=== PATIENT | male | born 1970 | race Caucasian/White ===

== ENCOUNTER → 2023-03-23 08:13 | Outpatient (CLI) | payer OTHER, SELFPAY ==
[2023-03-23 18:16] LABS: Basophils # 0.1 K/mm3 (0-0.2); Basophils % 0.7 % (0.1-2.0); Eosinophils # 0.6 K/mm3 (0.0-0.4); Eosinophils % 5.1 % (0.1-12.0); Hematocrit 43.6 % (42.0-52.0); Hemoglobin 14.6 g/dL (14.1-18.0); Lymphocytes # 1.8 K/mm3 (0.7-4.5); Lymphocytes % 16.4 % (10-50); Mean Corpuscular HGB Conc 33.5 g/dL (31.8-35.4); Mean Corpuscular Hemoglobin 29.7 pg (27.0-31.2); Mean Corpuscular Volume 88.7 fl (80-94); Mean Platelet Volume 9.2 fl (7.4-10.4); Monocytes # 0.4 K/mm3 (0.1-1.0); Neutrophils # 8.2 K/mm3 (1.8-7.8); Neutrophils % 73.9 % (37.0-80.0); Platelet Count 306 K/mm3 (142-424); Red Blood Count 4.92 M/mm3 (4.60-6.20); Red Cell Distribution Width 13.5 % (11.5-17.5); White Blood Count 11.2 K/mm3 (4.8-10.8)
[2023-03-23 18:18] LABS: Alanine Aminotransferase 62 U/L (12-78); Albumin Level 3.5 g/dl (3.5-5.0); Albumin/Globulin Ratio 1.1 (1.1-1.8); Alkaline Phosphatase 96 U/L (38-126); Anion Gap 14.3 mEq/L (5-15); Aspartate Amino Transferase 47 U/L (17-59); Bilirubin,Total 0.5 mg/dl (0.2-1.3); Blood Urea Nitrogen 14 mg/dl (9-20); Calcium 8.8 mg/dl (8.4-10.2); Carbon Dioxide 25 mmol/L (22.0-30.0); Chloride 103 mmol/L (98-107); Estimated Glomerular Filt Rate 174 ml/min (>60); GFR (African American) 210 ML/MIN (>60); Globulin 3.2 g/dL (1.3-3.2); Glucose 115 mg/dl (74-100); Potassium 4.3 mmoL/L (3.5-5.1); Sodium 138 mmol/L (136-145); Total Protein,Serum 6.7 g/dl (6.3-8.2); Uric Acid 4.8 mg/dl (3.5-8.5)
[2023-03-23 18:24] LABS: C-Reactive Protein 89.4 mg/L (0-4)
[2023-03-23 18:44] LABS: Erythrocyte Sedimentation Rate 21 mm/hr (0-20)
[2023-03-25 13:44] LABS: Anti-Centromere B Antibodies <0.2 AI (0.0-0.9); Anti-DNA (DS) Ab Qn <1 IU/mL (0-9); Anti-Jo-1 <0.2 AI (0.0-0.9); Anti-Smith Antibody <0.2 AI (0.0-0.9); Antichromatin Antibodies <0.2 AI (0.0-0.9); Antiscleroderma-70 Antibodies <0.2 AI (0.0-0.9); Lyme Ab CIA Negative (Negative); RNP Antibodies 0.2 AI (0.0-0.9); Sjogren's Anti-SS-A <0.2 AI (0.0-0.9); Sjogren's Anti-SS-B <0.2 AI (0.0-0.9)
[2023-03-25 14:34] LABS: RA Latex Turbid. 415.1 IU/mL (<14.0)
[2023-03-26 15:10] LABS: Antinuclear Antibodies, IFA Negative (.)
[2023-03-27 21:09] LABS: Lyme Interpretation Negative
== END ==
PROVIDERS: PCP Nurse Practitioner; Visit Provider Nurse Practitioner
DX: M79.641 Pain in right hand (principal); M79.642 Pain in left hand; M13.80 Other specified arthritis, unspecified site
CPT/HCPCS: 80053; 84550; 85025; 85651; 86038; 86140; 86225; 86235; 86431; 86618

== ENCOUNTER → 2023-04-17 08:53 | Outpatient (CLI) | payer OTHER, SELFPAY ==
[2023-04-17 18:43] LABS: Amphetamine/Metha Screen,Urine Negative ng/ml (<1000)
[2023-04-17 18:44] LABS: Barbiturates Screen,Urine Negative ng/ml (<200)
[2023-04-17 18:46] LABS: Benzodiazepines Screen,Urine Positive ng/ml (<200)
[2023-04-17 18:47] LABS: Cannabinoid Screen,Urine Negative ng/ml (<50); Cocaine Screen,Urine Negative ng/ml (<300)
[2023-04-17 18:48] LABS: Methadone Screen,Urine Negative ng/ml (<300); Opiate Screen,Urine Negative ng/ml (<300)
[2023-04-17 18:49] LABS: Phencyclidine Screen,Urine Negative ng/ml (<25)
== END ==
LOC: LAB.DROPOF 04-18 08:54
PROVIDERS: PCP Family Medicine; Visit Provider Family Medicine
DX: Z79.899 Other long term (current) drug therapy (principal)
CPT/HCPCS: 80305

== ENCOUNTER 2023-06-19 22:01 | Outpatient (CLI) | payer OTHER, SELFPAY ==
[2023-06-21 08:26] LABS: Testosterone,Total 262 ng/dL (264-916)
== END 2023-06-19 23:59 ==
LOC: LAB.DROPOF 22:01
PROVIDERS: PCP Family Medicine; Visit Provider Family Medicine
DX: R68.82 Decreased libido (principal)
CPT/HCPCS: 84403

== ENCOUNTER 2024-07-28 13:43 | Inpatient (IN) | payer OTHER, SELFPAY ==
[2024-07-28] VITALS (11 sets, daily range): BP systolic 113–151; BP diastolic 79–98; PULSE 95–124; RESP 15–20; TEMP 36.7–37.1; O2SAT 90–95; BMI 37.8; BMI 36.6
--- NOTE | 2024-07-28 13:54 | CT_ITS ---
FINAL REPORT TECHNIQUE: IV contrast enhanced exam. Coronal and sagittal images were obtained and reviewed. This study was performed with techniques to keep radiation doses as low as reasonably achievable, (ALARA). Individualized dose reduction techniques using automated exposure control or adjustment of mA and/or kV according to the patient''s size were employed. CLINICAL HISTORY: L perineal swelling fluctuance COMPARISON: None FINDINGS: Abdomen: The lung bases demonstrate mild scarring and atelectasis. There is fatty change of the liver. The remaining solid organs are normal. The gallbladder is negative. No bowel obstruction is present. There is no free air. No fluid collection is seen. There is no adenopathy. Pelvis: The appendix is normal. The urinary bladder and prostate are unremarkable. There are small bilateral inguinal hernias. Fluid collection along the proximal base of the scrotum extending into the perineum is compatible with abscess. No gas is seen within this structure. The fluid collection measures approximately 12 cm in length by 4 cm in depth by 3 cm in width. This does not obviously communicate with the anus. IMPRESSION: Abscess at the base of the scrotum extending into the perineum with measurements as above. No evidence of gas producing infection. No acute intra-abdominal findings. Reviewed, Interpreted and Dictated by Binta Becerra MD Transcribed by Natalia Lakhani Authenticated and [facility]
--- NOTE | 2024-07-28 13:59 | ED_ITS ---
Discharge Plan Disposition Patient Disposition: Admitted Chief Complaint: Skin/Abscess/Foreign Body Prescriptions Prescriptions: No Action albuterol sulfate 90 mcg/actuation HFA aerosol inhaler 2 puff inhalation QID PRN (Reason: shortness of breath or wheezing) Qty: 8.5 12RF Rx Instructions: please provide spacer and instructions alprazolam 2 mg tablet 2 mg PO BID PRN (Reason: anxiety) Qty: 60 5RF albuterol sulfate 90 mcg/actuation HFA aerosol inhaler 2 puff inhalation QID PRN (Reason: shortness of breath or wheezing) Qty: 8.5 12RF Wegovy 0.25 mg/0.5 mL pen injector 0.25 mg SQ WEEKLY Qty: 2 1RF Rx Instructions: administer weeks 1 through 4 of therapy duloxetine [Cymbalta] 60 mg capsule,delayed release(DR/EC) 60 mg PO DAILY Qty: 90 3RF testosterone [AndroGel] 20.25 mg/1.25 gram (1.62 %) gel in metered-dose pump 2 pump topical DAILY Qty: 75 5RF Rx Instructions: apply 1 pump amount over max area of EACH upper arm and shoulder Referrals Follow up/Referrals: Sushil Mobley MD [Primary Care Provider] - See instructions Clinical Impressions Clinical Impression: Abscess of perineum Instructions Patient Instructions: DI for Skin Abscess Print Language Print Language: Urdu Discharge ED Provider: Ton Matias General Adult HPI General Chief complaint: Skin/Abscess/Foreign Body Stated complaint: poss gangrene, sent by dr. Mobley Time Seen by Provider: 07/28/24 13:46 History of Present Illness HPI narrative: Patient is a 53-year-old male who presents emergency department as a transfer patient from clinic for evaluation of suspected Nicki's. Onset was acute, over the last 4 days he has had swelling and pain in his left perineal area. He has had this happen 1 time before and he popped it and it spontaneously resolved. However this time has been worse and more progressive. He presented to PCP today who was concerned for deep space infection promptly referred him here for continued evaluation. No trauma. No other acute complaints at this time. Please note that above description of symptoms, in this electronic medical record under categorization of recalled from ER triage doctor by RN are reflective of an initial nursing assessment, however, is not reflective of my full history and physical exam that was personally taken and clarified. Consequentially, this preceding description of symptoms, which may include the patient's categorized chief complaint in the EMR, do not reflect my personal clinical impression, and the ultimate description of history of present illness and patient stated complaints should be deferred to this section of the note. Unless stated otherwise or congruent with this section of the note, additional signs, symptoms, or incongruence should be interpreted as inaccurate with my clinical impression. Related Data Previous Rx's ?Medication ?Instructions ?Recorded albuterol sulfate 90 mcg/actuation 2 puff inhalation QID PRN 10/28/23 aerosol inhaler shortness of breath or wheezing #8.5 grams albuterol sulfate 90 mcg/actuation 2 puff inhalation QID PRN 05/27/24 aerosol inhaler shortness of breath or wheezing #8.5 grams alprazolam 2 mg tablet 2 mg PO BID PRN anxiety #60 tabs 05/27/24 semaglutide (weight loss) 0.25 0.25 mg (0.5 mL) SQ WEEKLY #2 mL 06/01/24 mg/0.5 mL subcutaneous pen injector (Wegovy) duloxetine 60 mg capsule,delayed 60 mg PO DAILY #90 caps 07/06/24 release (Cymbalta) testosterone (AndroGel) 2 pump topical DAILY #75 grams 07/06/24 Allergies Allergy/AdvReac Type Severity Reaction Status Date / Time No Known Allergies Allergy Verified 07/28/24 14:05 [facility] Disclaimer: The information contained in this section may have been updated after the patient was seen, as this information can be updated by other users. Medical History Elevated rheumatoid factor Migratory polyarthritis Right hand pain Left hand pain Tobacco consumption Lung disease Right shoulder pain Anxiety Surgical History Hx of tonsillectomy Family History Grandfather Cancer Colon Diabetes Mother Cancer Lung Social History Smoking Status: Current every day smoker alcohol intake: never current occupational status: employed Travel in the last 8 weeks: None Have you lived/traveled outside US in past 30 days?: No Contact w/someone who lives/traveled outside US past 30 days?: No Exposure to someone with infectious disease in past 14 days?: No Do you have a fever (greater than 100.4 F or 38 C)?: No Have you tested positive for COVID-19: No Exposed to someone with COVID-19 in past 14 days?: No Do you have a sore throat?: No Do you have a cough?: No Do you have any weakness?: No Do you have any diarrhea?: No Are you experiencing any unusual bleeding?: No Do you have any muscle aches/pain?: No Do you have any abdominal pain?: No Are you experiencing loss of taste or smell?: No ROS Obtained: Yes Systems reviewed as appropriate & no additional complaints except as documented Physical Exam General General appearance: alert and in no apparent distress Head Head exam: atraumatic and normocephalic Eye Eye exam: Present PERRL ENT ENT exam: Present mucous membranes moist Neck Neck exam: Present normal inspection Chest Chest inspection: Present normal inspection and symmetric chest wall rise Respiratory Respiratory exam: Present normal lung sounds bilaterally; Absent respiratory distress Cardiovascular Cardiovascular exam: Present normal rhythm, tachycardia and other (Capillary refill less than 2-second) Abdominal Exam Abdominal exam: Present soft; Absent tenderness exam: Present other ([employer] present, tender fluctuance along the left perineum extending to the base of the scrotum.) Extremities Exam Extremities exam: Present normal inspection Neurological Exam Neurological exam: Present alert Psychiatric Psychiatric exam: Present normal affect Skin Skin exam: Present warm and dry Medical Decision Making Medical Records Screening: Per USPSTF and CDC recommendations, given the prevalence of disease in our region, it is our hospital?s policy to screen for HIV and viral Hepatitis for all patients aged 18 and over and those with ongoing risk factors. Fredo Inquiry Pt receiving controlled substance: No Vital Signs: 07/28/24 13:56 07/28/24 13:58 07/28/24 14:15 Temperature 98.8 F Temperature Source Oral Pulse Rate 121 H 119 H Pulse Rate [Right] 124 H Respiratory Rate 15 Blood Pressure 138/96 H 151/98 H Blood Pressure [Right Arm] 138/96 H Blood Pressure Mean Blood Pressure Mean [Right Arm] 110 Blood Pressure Source [Right Arm] Automatic Cuff Blood Pressure Position [Right Arm] Supine 02 Sat by Pulse Oximetry 93 L 95 94 L Oxygen Delivery Method Room Air Room Air Room Air 07/28/24 14:35 07/28/24 14:45 07/28/24 15:00 Temperature Temperature Source Pulse Rate 122 H 113 H 110 H Pulse Rate [Right] Respiratory Rate Blood Pressure 140/88 127/81 132/80 Blood Pressure [Right Arm] Blood Pressure Mean 89 Blood Pressure Mean [Right Arm] Blood Pressure Source [Right Arm] Blood Pressure Position [Right Arm] 02 Sat by Pulse Oximetry 95 94 L 90 L Oxygen Delivery Method Room Air Room Air Lab Data Lab Results 07/28/24 14:07: WBC 13.7 H, RBC 5.69, Hgb 16.9, Hct 51.7, MCV 90.9, MCH 29.7, MCHC 32.7, RDW 15.4, Plt Count 216, MPV 9.8, Neut % (Auto) 81.5 H, Lymph % (Auto) 5.0 L, [facility] % (Auto) 6.9, Eos % (Auto) 5.2, Baso % (Auto) 0.7, Neut # (Auto) 11.2 H, Lymph # (Auto) 0.7, [facility] # (Auto) 1.0, Eos # (Auto) 0.7 H, Baso # (Auto) 0.1, VBG pH 7.43 H, VBG pCO2 35.8, VBG pO2 178.1 H, VBG HCO3 23.1, VBG Total CO2 24.2, VBG O2 Saturation 99.1 H, VBG Base Excess -1.2, VBG Lactic Acid 2.3 H, Sodium 136, Potassium 3.9, Chloride 104, Carbon Dioxide 26, Anion Gap 9.9, BUN 6 L, Creatinine 0.60 L, Estimated Creat Clear 259, Estimated GFR 140, Est GFR ( Amer) 170, Glucose 132 H, Calcium 8.8, Total Bilirubin 0.6, AST 32, ALT 31, Alkaline Phosphatase 88, C-Reactive Protein 35.7 H, Total Protein 7.2, Albumin 4.0, Globulin 3.2, Albumin/Globulin Ratio 1.3 07/28/24 14:07 07/28/24 14:07 Orders (Tests/Meds): ED MEDICATIONS Generic Name Dose Route Start Last Admin Trade Name Freq PRN Reason Stop Dose Admin Lactated Ringer's 2,470 mls @ 1,235 mls/hr 07/28/24 13:57 07/28/24 14:17 Lactated Ringer's 1000 Ml Bag 30 ml/kg infuse over 2 hr (2470 ml) 07/28/24 15:56 1,235 mls/hr IV Administration .Q2H ONE Vancomycin HCl 2,000 mg/ 250 mls @ 125 mls/hr 07/28/24 14:15 07/28/24 15:09 Sodium Chloride IV 07/28/24 16:14 125 mls/hr ONCE ONE Administration Nicotine 21 mg 07/28/24 15:16 Nicotine 21mg/24hr Patch TD 08/27/24 15:15 DAILYP PRN Nicotine Cravings Discontinued Medications Generic Name Dose Route Start Last Admin Trade Name Freq PRN Reason Stop Dose Admin Acetaminophen 1,000 mg 07/28/24 13:58 07/28/24 14:18 Acetaminophen 1,000mg/100ml Vial IV 07/28/24 13:59 1,000 mg ONCE ONE Administration Piperacillin Sod/Tazobactam 100 mls @ 200 mls/hr 07/28/24 13:56 07/28/24 14:50 Sod 4.5 gm/ Sodium Chloride IV 07/28/24 14:25 Not Given ONCE ONE Clindamycin Phosphate 900 mg in 50 mls @ 100 mls/hr 07/28/24 13:56 07/28/24 14:18 Clindamycin 900mg/50ml D5w Premix IV 07/28/24 14:25 100 mls/hr ONCE ONE Administration Piperacillin Sod/Tazobactam 100 mls @ 200 mls/hr 07/28/24 14:49 07/28/24 14:52 Sod 4.5 gm/ Sodium Chloride IV 07/28/24 15:18 200 mls/hr ONCE ONE Administration Iopamidol 75 ml 07/28/24 14:28 07/28/24 14:29 Iopamidol-370 (76%);100ml Bottle IV 07/28/24 14:29 75 ml ONCE ONE Administration Ketorolac Tromethamine 30 mg 07/28/24 13:58 07/28/24 14:18 Ketorolac 30mg/Ml Vial IV 07/28/24 13:59 30 mg ONCE ONE Administration Miscellaneous 1 each 07/28/24 14:00 07/28/24 14:39 Vancomycin Consult Request NOTAPPLIC 08/27/24 13:59 Not Given [facility] Morphine Sulfate 4 mg 07/28/24 13:58 07/28/24 14:17 Morphine 4mg/Ml Syringe IV 07/28/24 13:59 4 mg ONCE ONE Administration Ondansetron HCl 4 mg 07/28/24 13:58 07/28/24 14:24 Ondansetron 4mg/2ml Vial IV 07/28/24 13:59 4 mg ONCE ONE Administration Sodium Chloride 10 ml 07/28/24 14:28 07/28/24 14:28 Sodium Chloride 0.9% 10ml Syr (Rad Only) IV 07/28/24 14:29 10 ml ONCE ONE Administration ORDERS Category Date Time Status CT abdomen pelvis w con Stat Cat Scan 07/28/24 13:54 Completed CBC w/Auto Diff [Complete Blood Count Auto Diff] Stat Lab 07/28/24 14:07 Completed CMP [Comprehensive Metabolic Panel] Stat Lab 07/28/24 14:07 Completed CRP [C-Reactive Protein] Stat Lab 07/28/24 14:07 Completed HIV Combo Stat Lab 07/28/24 14:07 Received Hepatitis C Ab Qual. W/ RFX Stat Lab 07/28/24 14:07 Received Blood Culture Stat Micro 07/28/24 14:00 Received VBG [Venous Blood Gas] Stat RT 07/28/24 14:07 Completed Medical Decision Narrative: In summary patient is a 53-year-old male past medical history described above who presents emergency department for evaluation of left perineal swelling and tenderness. My concern for deep space infection is high. Differential includes mass, phlegmon, among others. Broad-spectrum antibiotics with bank, Zosyn, double coverage with clindamycin will be administered. Sepsis bolus will be administered. Broad hematologic labs to be obtained. Patient will undergo CT abdomen pelvis IV contrast immediately. Multimodal pain control will be to conducted. Initial workup reviewed by me, leukocytosis 13.4, compensated acid- base status, no hypercarbia. No BRAD or critical electrolyte abnormality, CRP mildly elevated. Tissue reperfusion assessment performed at 3 PM, continue with fluid resuscitation. CT imaging the abdomen pelvis informally visualized by me, there appears to be an abscess in the perineum, no obvious soft tissue gas. Formal read shows abscess at the base of the scrotum extending to the perineum 12 x 4 x 3. Upon repeat evaluation patient was volume responsive, stable blood pressures. Given that he is not developing septic shock I believe he is appropriate for this facility. The case discussed with Dr. Harris who agrees, patient will be continued on antibiotics and admitted to hospital medicine in stable condition pending surgical treatment tomorrow. Critical Care Critical Care Time Critical Care Time: Yes Attestation: On 07/28/24, the high probability of a clinically significant, sudden or life threatening deterioration of the following system(s) required my full and direct attention, intervention and personal management. The time I documented below is in addition to time spent performing reported procedures but includes the following listed in this critical care notation. Total Time Total Critical Care Time: 40
[2024-07-28 14:16] LABS: Basophils # 0.1 K/mm3 (0-0.2); Basophils % 0.7 % (0.1-2.0); Eosinophils # 0.7 K/mm3 (0.0-0.4); Eosinophils % 5.2 % (0.1-12.0); Hematocrit 51.7 % (42.0-52.0); Hemoglobin 16.9 g/dL (14.1-18.0); Lymphocytes # 0.7 K/mm3 (0.7-4.5); Mean Corpuscular HGB Conc 32.7 g/dL (31.8-35.4); Mean Corpuscular Hemoglobin 29.7 pg (27.0-31.2); Mean Corpuscular Volume 90.9 fl (80-94); Mean Platelet Volume 9.8 fl (7.4-10.4); Monocytes % 6.9 % (1.7-9.3); Neutrophils # 11.2 K/mm3 (1.8-7.8); Neutrophils % 81.5 % (37.0-80.0); Platelet Count 216 K/mm3 (142-424); Red Blood Count 5.69 M/mm3 (4.60-6.20); Red Cell Distribution Width 15.4 % (11.5-17.5); White Blood Count 13.7 K/mm3 (4.8-10.8)
[2024-07-28] MEDS: MORPHINE 4MG/ML SYRINGE 4 MG IV (14:17)
[2024-07-28] MEDS: LACTATED RINGERS 1000ML 2,470 ML 1235 ML IV (14:17)
[2024-07-28] MEDS: CLINDAMYCIN PHOSPHATE/D5W 900 MG/50 ML PIGGYBACK 100 MG IV (14:18)
[2024-07-28] MEDS: KETOROLAC 30MG/ML VIAL 30 MG IV (14:18)
[2024-07-28] MEDS: ACETAMINOPHEN 1,000MG/100ML VIAL 1000 MG IV (14:18)
[2024-07-28 14:24] LABS: VBG Base Excess -1.2 mmol/L (-2.4-2.3); VBG HCO3 23.1 mmol/L (23-30); VBG Oxygen Saturation 99.1 % (50-70); VBG PCO2 35.8 mmol/L (35-51); VBG PH 7.43 mmol/L (7.31-7.41); VBG PO2 178.1 mmol/L (28-40); VBG Total CO2 24.2 mmol/L (23-27)
[2024-07-28] MEDS: ONDANSETRON 4MG/2ML VIAL 4 MG IV (14:24)
[2024-07-28 14:25] LABS: Chloride 104 mmol/L (98-107); Potassium 3.9 mmoL/L (3.5-5.1); Sodium 136 mmol/L (136-145)
[2024-07-28 14:28] LABS: Alanine Aminotransferase 31 U/L (12-78); Albumin/Globulin Ratio 1.3 (1.1-1.8); Alkaline Phosphatase 88 U/L (38-126); Anion Gap 9.9 mEq/L (5-15); Aspartate Amino Transferase 32 U/L (17-59); Bilirubin,Total 0.6 mg/dl (0.2-1.3); Blood Urea Nitrogen 6 mg/dl (9-20); Calcium 8.8 mg/dl (8.4-10.2); Carbon Dioxide 26 mmol/L (22.0-30.0); Creatinine Clearance Estimated 259 mL/min (50-200); Estimated Glomerular Filt Rate 140 ml/min (>60); GFR (African American) 170 ML/MIN (>60); Globulin 3.2 g/dL (1.3-3.2); Glucose 132 mg/dl (74-100); Lactate Venous 2.3 mmol/L (0.4-2.0); Total Protein,Serum 7.2 g/dl (6.3-8.2)
[2024-07-28] MEDS: SODIUM CHLORIDE 0.9% 10ML SYR (RAD ONLY) 10 ML IV (14:28)
[2024-07-28] MEDS: IOPAMIDOL-370 (76%);100ML BOTTLE 75 ML IV (14:29)
[2024-07-28 14:40] LABS: C-Reactive Protein 35.7 mg/L (0-4)
[2024-07-28] MEDS: PIPERACILLIN/TAZO 4.5 GM in 0.9 % SODIUM CHLORIDE 100 ML IV ×2 (14:52→21:00)
[2024-07-28] MEDS: VANCOMYCIN HCL 2,000 MG in 0.9 % SODIUM CHLORIDE 250 ML 125 MG IV (15:09)
--- NOTE | 2024-07-28 15:15 | PC.NURSE ---
Dr Matias s/w Dr Harris for general surgery consult.
--- NOTE | 2024-07-28 15:31 | PC.NURSE ---
HS aware of admit
[2024-07-28 15:33] LABS: Hepatitis C Ab Qual. W/ RFX NEGATIVE (Negative)
--- NOTE | 2024-07-28 15:38 | PC.NURSE ---
PT ADMITTED, ROOM 215. ALL STAFF NOTIFIED
[2024-07-28 15:45] LABS: HIV Combo NEGATIVE (Negative)
--- NOTE | 2024-07-28 15:48 | P.HP_ITS ---
History of Present Illness *Admission Date: 07/28/24 *Reason for visit:: Pain in groin *History of present illness: Mr. Vaughan is a 53-year-old male who presented to the ER at the recommendation of his PCP. 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 States he has had a lesion in his groin before that is drained spontaneously. Thought it got better but has come back over the past several days to week. Has been taking daily baths with drainage of dark pus over the past 4 days. Denies fever or systemic symptoms. Has had pain and swelling in his groin. No difficulty urinating. Denies any known trauma. Is on steroids daily for rheumatoid arthritis. No known history of diabetes however. On no SGLT2 medications. On workup in the ER, found to have elevated white count of 13, CT showing large abscess in perineal region. Case discussed with surgery, recommends IV antibiotics and admission for surgical eval in the morning. Medicine consulted for admission. On my evaluation, patient meets criteria for sepsis. Will continue broad- spectrum antibiotics. Patient is alert and oriented, hemodynamically stable. Has received vancomycin, Zosyn, clindamycin in the ED. [facility] Disclaimer: The information contained in this section may have been updated after the patient was seen, as this information can be updated by other users. Medical History Elevated rheumatoid factor Migratory polyarthritis Right hand pain Left hand pain Tobacco consumption Lung disease Right shoulder pain Anxiety Surgical History Hx of tonsillectomy Family History Grandfather Cancer Diabetes Mother Cancer Social History Smoking Status: Current every day smoker alcohol intake: never current occupational status: employed Travel in the last 8 weeks: None Have you lived/traveled outside US in past 30 days?: No Contact w/someone who lives/traveled outside US past 30 days?: No Exposure to someone with infectious disease in past 14 days?: No Do you have a fever (greater than 100.4 F or 38 C)?: No Have you tested positive for COVID-19: No Exposed to someone with COVID-19 in past 14 days?: No Do you have a sore throat?: No Do you have a cough?: No Do you have any weakness?: No Do you have any diarrhea?: No Are you experiencing any unusual bleeding?: No Do you have any muscle aches/pain?: No Do you have any abdominal pain?: No Are you experiencing loss of taste or smell?: No Review of Systems Review of Systems Review of systems (narrative): 14 point review of systems performed, pertinent positives and negatives as per HPI Meds Home Medications and Allergies Home Medications ?Medication ?Instructions ?Recorded ?Confirmed ?Type albuterol sulfate 90 mcg/actuation 2 puff inhalation QID PRN 05/27/24 07/28/24 Rx aerosol inhaler shortness of breath or wheezing #8.5 grams alprazolam 2 mg tablet 2 mg PO BID PRN anxiety #60 tabs 05/27/24 07/28/24 Rx duloxetine 60 mg capsule,delayed 60 mg PO DAILY #90 caps 07/06/24 07/28/24 Rx release (Cymbalta) testosterone (AndroGel) 2 pump topical DAILY #75 grams 07/06/24 07/28/24 Rx leflunomide 20 mg tablet 20 mg PO DAILY 07/28/24 07/28/24 History oxycodone-acetaminophen 10 mg-325 10 - 325 tab PO TID Pain 07/28/24 07/28/24 History mg tablet prednisone 20 mg tablet 20 mg PO DAILY 07/28/24 07/28/24 History New Prescriptions to Start Prescriptions: Allergies Allergy/AdvReac Type Severity Reaction Status Date / Time No Known Allergies Allergy Verified 07/28/24 14:05 Exam Data for Last 24 hours Vital signs and Labs for Last 24 Hours: Temp Pulse Resp BP Pulse Ox O2 Del Method 98.8 F 105 H 15 125/93 H 93 L Room Air 07/28/24 13:58 07/28/24 15:30 07/28/24 13:58 07/28/24 15:30 07/28/24 15:30 07/28/24 15:30 Laboratory Results - last 24 hr 07/28/24 14:07: WBC 13.7 H, RBC 5.69, Hgb 16.9, Hct 51.7, MCV 90.9, MCH 29.7, MCHC 32.7, RDW 15.4, Plt Count 216, MPV 9.8, Neut % (Auto) 81.5 H, Lymph % (Auto) 5.0 L, [place] % (Auto) 6.9, Eos % (Auto) 5.2, Baso % (Auto) 0.7, Neut # (Auto) 11.2 H, Lymph # (Auto) 0.7, [place] # (Auto) 1.0, Eos # (Auto) 0.7 H, Baso # (Auto) 0.1, VBG pH 7.43 H, VBG pCO2 35.8, VBG pO2 178.1 H, VBG HCO3 23.1, VBG Total CO2 24.2, VBG O2 Saturation 99.1 H, VBG Base Excess -1.2, VBG Lactic Acid 2.3 H, Sodium 136, Potassium 3.9, Chloride 104, Carbon Dioxide 26, Anion Gap 9.9, BUN 6 L, Creatinine 0.60 L, Estimated Creat Clear 259, Estimated GFR 140, Est GFR ( Amer) 170, Glucose 132 H, Calcium 8.8, Total Bilirubin 0.6, AST 32, ALT 31, Alkaline Phosphatase 88, C-Reactive Protein 35.7 H, Total Protein 7.2, Albumin 4.0, Globulin 3.2, Albumin/Globulin Ratio 1.3, HCV Ab ROBER w/Rflx PCR Qn Negative, HIV Ag/Ab Combo Qual Negative I & O for Last 24 hours: Intake & Output 07/25/24 07/26/24 07/27/24 07/28/24 23:59 23:59 23:59 23:59 Weight 130.181 kg Constitutional Constitutional: no acute distress, obese, chronically ill appearing and cooperative *Routine HEENT Exam Head: Present normocephalic Eye: Present EOMI and PERRL ENT: Present mucous membranes moist *Routine Neck Exam Neck: Present supple; Absent lymphadenopathy *Routine Respiratory Exam Respiratory: Present CTA bilaterally; Absent rhonchi, wheezes or crackles Comments: Smoker's cough *Routine Cardiovascular Exam Cardiovascular: Present RRR *Routine Abdominal Exam Abdominal: Present soft and normoactive bowel sounds; Absent tenderness *Routine Rectal Exam Rectal:: no hemorrhoids *Routine Genitalia Exam Genitalia:: normal male Comment:: Firm elongated abscess along patient left with perineal fissure. Draining brown purulent material from opening near anus. Tender to palpation. *Routine Extremities Exam Extremities: Present edema (1+ bilateral lower extremities to knees); Absent cyanosis or clubbing *Routine Skin Exam Skin: Present warm; Absent rash *Routine Neurological Exam Neurological: Present alert, oriented X3 and moving all extremities; Absent a ltered mental status Assessment and Plan *Assessment and plan (1) Sepsis: Status: Acute Category: Medical Code(s): A41.9 - Sepsis, unspecified organism (2) Abscess of perineum: Status: Acute Category: Medical Code(s): L02.215 - Cutaneous abscess of perineum (3) TEE (generalized anxiety disorder): Status: Acute Category: Medical Code(s): F41.1 - Generalized anxiety disorder (4) Tobacco use disorder: Status: Acute Category: Medical Code(s): F17.200 - Nicotine dependence, unspecified, uncomplicated (5) Alcohol dependence: Status: Acute Category: Medical Code(s): F10.20 - Alcohol dependence, uncomplicated (6) Rheumatoid arthritis: Status: Acute Category: Medical Code(s): M06.9 - Rheumatoid arthritis, unspecified (7) Chronic steroid use: Status: Acute Category: Medical (8) Obesity (BMI 30-39.9): Status: Acute Category: Medical Code(s): E66.9 - Obesity, unspecified Plan 53-year-old male who presents with increased swelling in his groin and increased pain. Found to be septic on arrival with tachycardia, leukocytosis, source of infection. Imaging showing perineal abscess. Discussed case with ER physician, request admission for IV antibiotics and surgical eval/debridement. I agreed to admit for further management. Discussed case with surgery, will plan for surgery in the morning. Continue broad-spectrum antibiotics. Necessitating inpatient care. Problems addressed as follows: Sepsis Perineal abscess - no tom Nicki's gangrene on exam or imaging. CT per my review shows elongated abscess in perineal region. Does not have gas present. Draining purulent material. Continue broad-spectrum antibiotics with vancomycin IV and Zosyn 4.5 g every 6 hours. -Surgery consulted, appreciate their recommendations. Planning for I&D in the morning -Meeting sepsis criteria with elevated white count of 13, tachycardic above 100, source of infection. Repeat CBC, CMP, magnesium, ESR and CRP ordered for the morning -Oxycodone 10/325 every 6 hours as needed for severe pain -Further narrowing of antibiotics pending cultures Rheumatoid arthritis: On chronic steroids. Continue prednisone 20 mg daily. Increases risk for infection, will complicate healing. High risk for adrenal insufficiency, has been on high-dose steroids for months. Unsafe to stop at this time Anxiety: Continue Cymbalta 60 daily Tobacco use disorder: Smokes 2 packs a day, initiate two 21 mg patches daily; uses inhalers as needed. Continue DuoNebs every 6 hours as needed Alcohol dependence: Drinks up to 12 beers a day. Never had withdrawal symptoms. Continue home Xanax 2 mg twice daily as needed to decrease risk for withdrawal; monitor for increasing CIWA scores Full code N.p.o. at midnight Holding anticoagulation in anticipation of surgery
[2024-07-28] MEDS: NICOTINE 21MG/24HR PATCH 21 MG TD (15:50)
[2024-07-28 18:26] LABS: Reflex Lactic Add Lactic Reflex
[2024-07-28] MEDS: VANCOMYCIN CONSULT REQUEST 1 EACH NOTAPPLIC (18:32)
[2024-07-28] MEDS: OXYCODONE 10MG W/APAP 325MG TABLET 1 EACH PO (18:35)
--- NOTE | 2024-07-28 18:39 | PC.WOUNDNOTE ---
perineal abscess with significant drainage
[2024-07-28 18:58] LABS: Lactic Acid Follow Up (RFLX 1) 0.9 mmol/L (0.7-2.1)
[2024-07-28] MEDS: ALPRAZolam 1MG TABLET 2 MG PO (21:00)
[2024-07-29] VITALS (15 sets, daily range): BP systolic 140–168; BP diastolic 88–100; PULSE 83–110; RESP 16–24; TEMP 36.4–36.8; O2SAT 91–95; BMI 38.0
[2024-07-29] MEDS: VANCOMYCIN/WATER FOR INJ (PEG) 1.75 GM/350 ML PIGGYBACK IV (02:00)
[2024-07-29] MEDS: PIPERACILLIN/TAZO 4.5 GM in 0.9 % SODIUM CHLORIDE 100 ML IV ×4 (03:00→21:12)
[2024-07-29] MEDS: OXYCODONE 10MG W/APAP 325MG TABLET 1 EACH PO ×4 (03:56→18:46)
--- NOTE | 2024-07-29 04:38 | PC.NURSE ---
Pt NPO since midnight for pending procedure. Pt tolerated IV ABX well. V/s, ox4. No acute events to report. Plan of care ongoing.
[2024-07-29 05:28] LABS: Basophils # 0.1 K/mm3 (0-0.2); Hemoglobin 15.5 g/dL (14.1-18.0); Lymphocytes # 1.9 K/mm3 (0.7-4.5); Monocytes # 0.9 K/mm3 (0.1-1.0)
[2024-07-29 05:33] LABS: Basophils % 0.6 % (0.1-2.0); Eosinophils # 0.2 K/mm3 (0.0-0.4); Eosinophils % 2.3 % (0.1-12.0); Hematocrit 47.6 % (42.0-52.0); Lymphocytes % 18.9 % (10-50); Mean Corpuscular HGB Conc 32.6 g/dL (31.8-35.4); Mean Corpuscular Hemoglobin 29.9 pg (27.0-31.2); Mean Corpuscular Volume 91.7 fl (80-94); Monocytes % 8.7 % (1.7-9.3); Neutrophils # 6.9 K/mm3 (1.8-7.8); Neutrophils % 68.8 % (37.0-80.0); Platelet Count 178 K/mm3 (142-424); Red Blood Count 5.19 M/mm3 (4.60-6.20); Red Cell Distribution Width 15.2 % (11.5-17.5)
[2024-07-29 05:38] LABS: Alanine Aminotransferase 26 U/L (12-78); Albumin Level 3.2 g/dl (3.5-5.0); Albumin/Globulin Ratio 1.1 (1.1-1.8); Alkaline Phosphatase 58 U/L (38-126); Anion Gap 3.6 mEq/L (5-15); Aspartate Amino Transferase 24 U/L (17-59); Bilirubin,Total 0.7 mg/dl (0.2-1.3); Blood Urea Nitrogen 6 mg/dl (9-20); Calcium 8.2 mg/dl (8.4-10.2); Carbon Dioxide 29 mmol/L (22.0-30.0); Chloride 106 mmol/L (98-107); Creatinine Clearance Estimated 259 mL/min (50-200); Estimated Glomerular Filt Rate 140 ml/min (>60); GFR (African American) 170 ML/MIN (>60); Globulin 2.8 g/dL (1.3-3.2); Glucose 91 mg/dl (74-100); Magnesium 1.9 mg/dl (1.6-2.3); Potassium 3.6 mmoL/L (3.5-5.1); Sodium 135 mmol/L (136-145)
[2024-07-29 05:55] LABS: Hemoglobin A1C 5.4 % (4.0-6.0)
[2024-07-29 06:09] LABS: Thyroid Stimulating Hormone 1.22 uIU/mL (0.465-4.68)
--- NOTE | 2024-07-29 07:07 | P.CONS_ITS ---
History of Present Illness *Admission Date: 07/28/24 *Reason for visit:: Perineal/scrotal abscess *History of present illness: This is a 53-year-old gentleman who presented to the emergency department with increasing pain in his perineal region. He was diagnosed with perineal/scrotal abscess and the surgical service was consulted. Some spontaneous drainage noted. He currently feels okay . Please see HPI forwarded from admission H&P below. Forwarded from admission H&P: Mr. Vaughan is a 53-year-old male who presented to the ER at the recommendation of his PCP. 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 States he has had a lesion in his groin before that is drained spontaneously. Thought it got better but has come back over the past several days to week. Has been taking daily baths with drainage of dark pus over the past 4 days. Denies fever or systemic symptoms. Has had pain and swelling in his groin. No difficulty urinating. Denies any known trauma. Is on steroids daily for rheumatoid arthritis. No known history of diabetes however. On no SGLT2 medications. On workup in the ER, found to have elevated white count of 13, CT showing large abscess in perineal region. Case discussed with surgery, recommends IV antibiotics and admission for surgical eval in the morning. Medicine consulted for admission. On my evaluation, patient meets criteria for sepsis. Will continue broad- spectrum antibiotics. Patient is alert and oriented, hemodynamically stable. Has received vancomycin, Zosyn, clindamycin in the ED. [facility] Disclaimer: The information contained in this section may have been updated after the patient was seen, as this information can be updated by other users. Medical History Elevated rheumatoid factor Migratory polyarthritis Right hand pain Left hand pain Tobacco consumption Lung disease Right shoulder pain Anxiety Surgical History Hx of tonsillectomy Family History Grandfather Cancer Diabetes Mother Cancer Social History Smoking Status: Current every day smoker alcohol intake: never current occupational status: employed Travel in the last 8 weeks: None Have you lived/traveled outside US in past 30 days?: No Contact w/someone who lives/traveled outside US past 30 days?: No Exposure to someone with infectious disease in past 14 days?: No Do you have a fever (greater than 100.4 F or 38 C)?: No Have you tested positive for COVID-19: No Exposed to someone with COVID-19 in past 14 days?: No Do you have a sore throat?: No Do you have a cough?: No Do you have any weakness?: No Do you have any diarrhea?: No Are you experiencing any unusual bleeding?: No Do you have any muscle aches/pain?: No Do you have any abdominal pain?: No Are you experiencing loss of taste or smell?: No Meds Home Medications and Allergies Home Medications ?Medication ?Instructions ?Recorded ?Confirmed ?Type albuterol sulfate 90 mcg/actuation 2 puff inhalation QID PRN 05/27/24 07/28/24 Rx aerosol inhaler shortness of breath or wheezing #8.5 grams alprazolam 2 mg tablet 2 mg PO BID PRN anxiety #60 tabs 05/27/24 07/28/24 Rx duloxetine 60 mg capsule,delayed 60 mg PO DAILY #90 caps 07/06/24 07/28/24 Rx release (Cymbalta) testosterone (AndroGel) 2 pump topical DAILY #75 grams 07/06/24 07/28/24 Rx leflunomide 20 mg tablet 20 mg PO DAILY 07/28/24 07/28/24 History oxycodone-acetaminophen 10 mg-325 10 - 325 tab PO TID Pain 07/28/24 07/28/24 History mg tablet prednisone 20 mg tablet 20 mg PO DAILY 07/28/24 07/28/24 History New Prescriptions to Start Prescriptions: Allergies Allergy/AdvReac Type Severity Reaction Status Date / Time No Known Allergies Allergy Verified 07/28/24 14:05 Exam (Inpt) Vital signs and Labs for Last 24 Hours: Temp Pulse Resp BP Pulse Ox O2 Del Method 97.8 F 83 16 151/91 H 92 L Room Air 07/29/24 04:00 07/29/24 04:00 07/29/24 04:00 07/29/24 04:00 07/29/24 04:00 07/29/24 06:08 Laboratory Results - last 24 hr 07/28/24 14:07: WBC 13.7 H, RBC 5.69, Hgb 16.9, Hct 51.7, MCV 90.9, MCH 29.7, MCHC 32.7, RDW 15.4, Plt Count 216, MPV 9.8, Neut % (Auto) 81.5 H, Lymph % (Auto) 5.0 L, [place] % (Auto) 6.9, Eos % (Auto) 5.2, Baso % (Auto) 0.7, Neut # (Auto) 11.2 H, Lymph # (Auto) 0.7, [place] # (Auto) 1.0, Eos # (Auto) 0.7 H, Baso # (Auto) 0.1, VBG pH 7.43 H, VBG pCO2 35.8, VBG pO2 178.1 H, VBG HCO3 23.1, VBG Total CO2 24.2, VBG O2 Saturation 99.1 H, VBG Base Excess -1.2, VBG Lactic Acid 2.3 H, Sodium 136, Potassium 3.9, Chloride 104, Carbon Dioxide 26, Anion Gap 9.9, BUN 6 L, Creatinine 0.60 L, Estimated Creat Clear 259, Estimated GFR 140, Est GFR ( Amer) 170, Glucose 132 H, Calcium 8.8, Total Bilirubin 0.6, AST 32, ALT 31, Alkaline Phosphatase 88, C-Reactive Protein 35.7 H, Total Protein 7.2, Albumin 4.0, Globulin 3.2, Albumin/Globulin Ratio 1.3, HCV Ab ROBER w/Rflx PCR Qn Negative, HIV Ag/Ab Combo Qual Negative 07/28/24 18:41: Lactate 0.9 07/29/24 05:15: WBC 10.0 D, RBC 5.19, Hgb 15.5, Hct 47.6, MCV 91.7, MCH 29.9, MCHC 32.6, RDW 15.2, Plt Count 178, MPV 10.0, Neut % (Auto) 68.8, Lymph % (Auto) 18.9, [place] % (Auto) 8.7, Eos % (Auto) 2.3, Baso % (Auto) 0.6, Neut # (Auto) 6.9, Lymph # (Auto) 1.9, [place] # (Auto) 0.9, Eos # (Auto) 0.2, Baso # (Auto) 0.1, S odium 135 L, Potassium 3.6, Chloride 106, Carbon Dioxide 29, Anion Gap 3.6 L, B UN 6 L, Creatinine 0.60 L, Estimated Creat Clear 259, Estimated GFR 140, Est GFR ( Amer) 170, Glucose 91 D, Hemoglobin A1c 5.4, Calcium 8.2 L, Magnesium 1.9, Total Bilirubin 0.7, AST 24, ALT 26, Alkaline Phosphatase 58, Total Protein 6.0 L, Albumin 3.2 L D, Globulin 2.8, Albumin/Globulin Ratio 1.1, TSH 1.22 I & O for Labs for Last 24 Hours: Intake & Output 07/26/24 07/27/24 07/28/24 07/29/24 11:59 11:59 11:59 11:59 Intake Total 180 / 180 Balance 180 / 180 Weight 287 lb Constitutional: no acute distress Respiratory: Absent respiratory distress Cardiac: Absent Tachycardia Comment:: Induration and blush noted along perineal region with projection to the inferior left scrotum. Marginal opening with some drainage noted. Results Labs 07/29/24 05:15 07/29/24 05:15 Labs: Laboratory Results - last 24 hr 07/28/24 14:07: WBC 13.7 H, RBC 5.69, Hgb 16.9, Hct 51.7, MCV 90.9, MCH 29.7, MCHC 32.7, RDW 15.4, Plt Count 216, MPV 9.8, Neut % (Auto) 81.5 H, Lymph % (Auto) 5.0 L, [place] % (Auto) 6.9, Eos % (Auto) 5.2, Baso % (Auto) 0.7, Neut # (Auto) 11.2 H, Lymph # (Auto) 0.7, [place] # (Auto) 1.0, Eos # (Auto) 0.7 H, Baso # (Auto) 0.1, VBG pH 7.43 H, VBG pCO2 35.8, VBG pO2 178.1 H, VBG HCO3 23.1, VBG Total CO2 24.2, VBG O2 Saturation 99.1 H, VBG Base Excess -1.2, VBG Lactic Acid 2.3 H, Sodium 136, Potassium 3.9, Chloride 104, Carbon Dioxide 26, Anion Gap 9.9, BUN 6 L, Creatinine 0.60 L, Estimated Creat Clear 259, Estimated GFR 140, Est GFR ( Amer) 170, Glucose 132 H, Calcium 8.8, Total Bilirubin 0.6, AST 32, ALT 31, Alkaline Phosphatase 88, C-Reactive Protein 35.7 H, Total Protein 7.2, Albumin 4.0, Globulin 3.2, Albumin/Globulin Ratio 1.3, HCV Ab ROBER w/Rflx PCR Qn Negative, HIV Ag/Ab Combo Qual Negative 07/28/24 18:41: Lactate 0.9 07/29/24 05:15: WBC 10.0 D, RBC 5.19, Hgb 15.5, Hct 47.6, MCV 91.7, MCH 29.9, MCHC 32.6, RDW 15.2, Plt Count 178, MPV 10.0, Neut % (Auto) 68.8, Lymph % (Auto) 18.9, [place] % (Auto) 8.7, Eos % (Auto) 2.3, Baso % (Auto) 0.6, Neut # (Auto) 6.9, Lymph # (Auto) 1.9, [place] # (Auto) 0.9, Eos # (Auto) 0.2, Baso # (Auto) 0.1, S odium 135 L, Potassium 3.6, Chloride 106, Carbon Dioxide 29, Anion Gap 3.6 L, B UN 6 L, Creatinine 0.60 L, Estimated Creat Clear 259, Estimated GFR 140, Est GFR ( Amer) 170, Glucose 91 D, Hemoglobin A1c 5.4, Calcium 8.2 L, Magnesium 1.9, Total Bilirubin 0.7, AST 24, ALT 26, Alkaline Phosphatase 58, Total Protein 6.0 L, Albumin 3.2 L D, Globulin 2.8, Albumin/Globulin Ratio 1.1, TSH 1.22 Assessment and Plan *Assessment and plan (1) Abscess of perineum: Status: Acute Category: Medical Code(s): L02.215 - Cutaneous abscess of perineum Plan: Continue overall management as per primary service (IV antibiotics, etc.). Incision and drainage of abscess this morning I have discussed the risks and benefits including, but not limited to: Bleeding Infection Damage to surrounding tissue Inherent risks of sedation The patient agrees to proceed.
--- NOTE | 2024-07-29 07:31 | PC.NURSE ---
pt down for surgery
--- NOTE | 2024-07-29 07:37 | EXP.ACUTE.PN ---
Subjective *Date: 07/29/24 *Time: 20:33 Interval history: Patient seen after surgery today. I&D performed. Feeling somewhat better with the partial relief. Afebrile. No nausea or vomiting. Stable on room air. Medical Exam Vital signs and Labs for Last 24 Hours: Vital Signs Temp Pulse Pulse Resp BP BP Pulse Ox 07/29/24 06:08 07/29/24 04:41 07/29/24 04:00 97.8 F 83 16 151/91 H 92 L 07/29/24 03:00 07/29/24 01:00 07/28/24 22:37 07/28/24 20:48 07/28/24 20:00 07/28/24 20:00 98.1 F 95 H 18 151/92 H 94 L 07/28/24 18:23 07/28/24 17:00 07/28/24 16:11 98.4 F 105 H 15 125/93 H 07/28/24 16:10 98.1 F 109 H 20 146/81 H 93 L 07/28/24 15:41 07/28/24 15:30 105 H 125/93 H 93 L 07/28/24 15:17 111 H 113/79 90 L 07/28/24 15:00 110 H 132/80 90 L 07/28/24 14:45 113 H 127/81 94 L 07/28/24 14:35 122 H 140/88 95 07/28/24 14:15 119 H 151/98 H 94 L 07/28/24 13:58 98.8 F 124 H 15 138/96 H 95 07/28/24 13:56 121 H 138/96 H 93 L O2 Del Method 07/29/24 06:08 Room Air 07/29/24 04:41 Room Air 07/29/24 04:00 Room Air 07/29/24 03:00 Room Air 07/29/24 01:00 Room Air 07/28/24 22:37 Room Air 07/28/24 20:48 Room Air 07/28/24 20:00 Room Air 07/28/24 20:00 Room Air 07/28/24 18:23 Room Air 07/28/24 17:00 Room Air 07/28/24 16:11 Room Air 07/28/24 16:10 Room Air 07/28/24 15:41 Room Air 07/28/24 15:30 Room Air 07/28/24 15:17 Room Air 07/28/24 15:00 07/28/24 14:45 Room Air 07/28/24 14:35 Room Air 07/28/24 14:15 Room Air 07/28/24 13:58 Room Air 07/28/24 13:56 Room Air Intake and Output 07/28/24 07/28/24 07/29/24 15:59 23:59 07:59 Intake Total 180 / 180 0 / 0 Balance 180 / 180 0 / 0 Intake: Intake, Oral Amount 180 / 180 0 / 0 Other: Weight 130.181 kg 125.702 kg 130.181 kg Patient Weight 07/29/24 23:59 Weight 130.181 kg Laboratory Results - last 24 hr 07/28/24 14:07: WBC 13.7 H, RBC 5.69, Hgb 16.9, Hct 51.7, MCV 90.9, MCH 29.7, MCHC 32.7, RDW 15.4, Plt Count 216, MPV 9.8, Neut % (Auto) 81.5 H, Lymph % (Auto) 5.0 L, Nelson % (Auto) 6.9, Eos % (Auto) 5.2, Baso % (Auto) 0.7, Neut # (Auto) 11.2 H, Lymph # (Auto) 0.7, Nelson # (Auto) 1.0, Eos # (Auto) 0.7 H, Baso # (Auto) 0.1, VBG pH 7.43 H, VBG pCO2 35.8, VBG pO2 178.1 H, VBG HCO3 23.1, VBG Total CO2 24.2, VBG O2 Saturation 99.1 H, VBG Base Excess -1.2, VBG Lactic Acid 2.3 H, Sodium 136, Potassium 3.9, Chloride 104, Carbon Dioxide 26, Anion Gap 9.9, BUN 6 L, Creatinine 0.60 L, Estimated Creat Clear 259, Estimated GFR 140, Est GFR ( Amer) 170, Glucose 132 H, Calcium 8.8, Total Bilirubin 0.6, AST 32, ALT 31, Alkaline Phosphatase 88, C-Reactive Protein 35.7 H, Total Protein 7.2, Albumin 4.0, Globulin 3.2, Albumin/Globulin Ratio 1.3, HCV Ab ROBER w/Rflx PCR Qn Negative, HIV Ag/Ab Combo Qual Negative 07/28/24 18:41: Lactate 0.9 07/29/24 05:15: WBC 10.0 D, RBC 5.19, Hgb 15.5, Hct 47.6, MCV 91.7, MCH 29.9, MCHC 32.6, RDW 15.2, Plt Count 178, MPV 10.0, Neut % (Auto) 68.8, Lymph % (Auto) 18.9, Nelson % (Auto) 8.7, Eos % (Auto) 2.3, Baso % (Auto) 0.6, Neut # (Auto) 6.9, Lymph # (Auto) 1.9, Nelson # (Auto) 0.9, Eos # (Auto) 0.2, Baso # (Auto) 0.1, Sodium 135 L, Potassium 3.6, Chloride 106, Carbon Dioxide 29, Anion Gap 3.6 L, BUN 6 L, Creatinine 0.60 L, Estimated Creat Clear 259, Estimated GFR 140, Est GFR ( Amer) 170, Glucose 91 D, Hemoglobin A1c 5.4, Calcium 8.2 L, Magnesium 1.9, Total Bilirubin 0.7, AST 24, ALT 26, Alkaline Phosphatase 58, Total Protein 6.0 L, Albumin 3.2 L D, Globulin 2.8, Albumin/Globulin Ratio 1.1, TSH 1.22 I & O for Labs for Last 24 Hours: Intake & Output 07/26/24 07/27/24 07/28/24 07/29/24 23:59 23:59 23:59 23:59 Intake Total 180 / 180 0 / 0 Balance 180 / 180 0 / 0 Weight 125.702 kg 130.181 kg Constitutional: Present no acute distress, obese, chronically ill appearing and cooperative Head: Present atraumatic and normocephalic Neck: Present normal inspection Respiratory: Present normal respiratory effort; Absent rhonchi, stridor, wheezes or crackles Cardiac: Present Reg Rate and Rhythm GI: Present soft and normal bowel sounds; Absent distention or tenderness Comment:: Normal male genitalia, blood-tinged dressing at site of I&D Extremities: Present normal inspection and full ROM Skin: Present intact; Absent erythema Neuro: Present Grossly Intact, alert, awake, oriented x 3 and moves all extremities Assessment and Plan *Assessment and plan (1) Sepsis: Status: Acute Category: Medical Code(s): A41.9 - Sepsis, unspecified organism (2) Abscess of perineum: Status: Acute Category: Medical Code(s): L02.215 - Cutaneous abscess of perineum (3) TEE (generalized anxiety disorder): Status: Acute Category: Medical Code(s): F41.1 - Generalized anxiety disorder (4) Tobacco use disorder: Status: Acute Category: Medical Code(s): F17.200 - Nicotine dependence, unspecified, uncomplicated (5) Alcohol dependence: Status: Acute Category: Medical Code(s): F10.20 - Alcohol dependence, uncomplicated (6) Rheumatoid arthritis: Status: Acute Category: Medical Code(s): M06.9 - Rheumatoid arthritis, unspecified (7) Chronic steroid use: Status: Acute Category: Medical (8) Obesity (BMI 30-39.9): Status: Acute Category: Medical Code(s): E66.9 - Obesity, unspecified Plan 53-year-old male who presents with increased swelling in his groin and increased pain. Found to be septic on arrival with tachycardia, leukocytosis, source of infection. Imaging showing perineal abscess. Discussed case with ER physician, request admission for IV antibiotics and surgical eval/debridement. I agreed to admit for further management. S/P I&D this morning. Continue broad-spectrum antibiotics. Necessitating inpatient care. Problems addressed as follows: Sepsis Perineal abscess -Status post I&D this morning, discussed case with surgery, daily dry dressing changes and packing. Patient wants to come back as an outpatient for treatment at the hospital. Will have case management assist with scheduling. -Continue broad-spectrum antibiotics with vancomycin IV and Zosyn 4.5 g every 6 hours. -White count improved to 10. Hemoglobin 15. Screening labs with TSH 1.2 and A1c 5.4 today. Kidney function at baseline with BUN 6, creatinine 0.6. -Repeat CBC, CMP, magnesium ordered for the morning -Oxycodone 10/325 every 6 hours as needed for severe pain; will administer Dilaudid 2 mg IV with dressing changes daily. -Further narrowing of antibiotics pending cultures Rheumatoid arthritis: On chronic steroids. Continue prednisone 20 mg daily. Increases risk for infection, will complicate healing. High risk for adrenal insufficiency, has been on high-dose steroids for months. Unsafe to stop at this time Anxiety: Continue Cymbalta 60 daily Tobacco use disorder: Smokes 2 packs a day, initiate two 21 mg patches daily; uses inhalers as needed. Continue DuoNebs every 6 hours as needed Alcohol dependence: Drinks up to 12 beers a day. Never had withdrawal symptoms. Continue home Xanax 2 mg twice daily as needed to decrease risk for withdrawal; monitor for increasing CIWA scores Full code Regular diet Holding anticoagulation in anticipation of surgery
--- NOTE | 2024-07-29 07:43 | P.PNANES_ITS ---
[facility] Disclaimer: The information contained in this section may have been updated after the patient was seen, as this information can be updated by other users. Medical History Elevated rheumatoid factor Migratory polyarthritis Right hand pain Left hand pain Tobacco consumption Lung disease Right shoulder pain Anxiety Surgical History Hx of tonsillectomy Family History Grandfather Cancer Diabetes Mother Cancer Social History Smoking Status: Current every day smoker alcohol intake: never substance use type: denies use current occupational status: employed Travel in the last 8 weeks: None [facility] Anesthesia Checklist Patient Identification Patient Identification: Arm Band Structural Data Admitted From: Inpatient Planned Operative Procedure/s: I&D Perineal Abscess Consent for Planned Operative Procedure(s) Verified: Yes Verified Documents: Surgical Consent and History and Physical NPO Status Verified Time NPO: 00:00 Additional verifications Anesthesia Reactions: No Airway Assessment Mallampati Score:: Class II C-Spine Mobility Assessed: Yes TMJ Mobility Assessed: Yes Dentition: Good Dentition Neurological Assessment Level of Consciousness: Awake, Alert and Appropriate Anesthesia Plan Anesthesia Risk discussed: Yes Anesthesia Plan: Verified ASA Class: III Anesthesia Type: General
--- NOTE | 2024-07-29 07:45 | EXP.PHA.CONS ---
Pharmacy Consult Date: 07/29/24 Time: 07:45 Referring provider: DR NAVA Reason for Consult:: VANCOMYCIN DOSING CONSULT Allergies Allergy/AdvReac Type Severity Reaction Status Date / Time No Known Allergies Allergy Verified 07/28/24 14:05 Home Medications ?Medication ?Instructions ?Recorded ?Confirmed ?Type albuterol sulfate 90 mcg/actuation 2 puff inhalation QID PRN 05/27/24 07/28/24 Rx aerosol inhaler shortness of breath or wheezing #8.5 grams alprazolam 2 mg tablet 2 mg PO BID PRN anxiety #60 tabs 05/27/24 07/28/24 Rx duloxetine 60 mg capsule,delayed 60 mg PO DAILY #90 caps 07/06/24 07/28/24 Rx release (Cymbalta) testosterone (AndroGel) 2 pump topical DAILY #75 grams 07/06/24 07/28/24 Rx leflunomide 20 mg tablet 20 mg PO DAILY 07/28/24 07/28/24 History oxycodone-acetaminophen 10 mg-325 10 - 325 tab PO TID Pain 07/28/24 07/28/24 History mg tablet prednisone 20 mg tablet 20 mg PO DAILY 07/28/24 07/28/24 History New Prescriptions to Start Prescriptions: Height: 1.85 m Weight: 130.181 kg Laboratory Results:: Laboratory Results - last 24 hr 07/28/24 14:07: WBC 13.7 H, RBC 5.69, Hgb 16.9, Hct 51.7, MCV 90.9, MCH 29.7, MCHC 32.7, RDW 15.4, Plt Count 216, MPV 9.8, Neut % (Auto) 81.5 H, Lymph % (Auto) 5.0 L, [place] % (Auto) 6.9, Eos % (Auto) 5.2, Baso % (Auto) 0.7, Neut # (Auto) 11.2 H, Lymph # (Auto) 0.7, [place] # (Auto) 1.0, Eos # (Auto) 0.7 H, Baso # (Auto) 0.1, VBG pH 7.43 H, VBG pCO2 35.8, VBG pO2 178.1 H, VBG HCO3 23.1, VBG Total CO2 24.2, VBG O2 Saturation 99.1 H, VBG Base Excess -1.2, VBG Lactic Acid 2.3 H, Sodium 136, Potassium 3.9, Chloride 104, Carbon Dioxide 26, Anion Gap 9.9, BUN 6 L, Creatinine 0.60 L, Estimated Creat Clear 259, Estimated GFR 140, Est GFR ( Amer) 170, Glucose 132 H, Calcium 8.8, Total Bilirubin 0.6, AST 32, ALT 31, Alkaline Phosphatase 88, C-Reactive Protein 35.7 H, Total Protein 7.2, Albumin 4.0, Globulin 3.2, Albumin/Globulin Ratio 1.3, HCV Ab ROBER w/Rflx PCR Qn Negative, HIV Ag/Ab Combo Qual Negative 07/28/24 18:41: Lactate 0.9 07/29/24 05:15: WBC 10.0 D, RBC 5.19, Hgb 15.5, Hct 47.6, MCV 91.7, MCH 29.9, MCHC 32.6, RDW 15.2, Plt Count 178, MPV 10.0, Neut % (Auto) 68.8, Lymph % (Auto) 18.9, [place] % (Auto) 8.7, Eos % (Auto) 2.3, Baso % (Auto) 0.6, Neut # (Auto) 6.9, Lymph # (Auto) 1.9, [place] # (Auto) 0.9, Eos # (Auto) 0.2, Baso # (Auto) 0.1, Sodium 135 L, Potassium 3.6, Chloride 106, Carbon Dioxide 29, Anion Gap 3.6 L, BUN 6 L, Creatinine 0.60 L, Estimated Creat Clear 259, Estimated GFR 140, Est GFR ( Amer) 170, Glucose 91 D, Hemoglobin A1c 5.4, Calcium 8.2 L, Magnesium 1.9, Total Bilirubin 0.7, AST 24, ALT 26, Alkaline Phosphatase 58, Total Protein 6.0 L, Albumin 3.2 L D, Globulin 2.8, Albumin/Globulin Ratio 1.1, TSH 1.22 Medical History: Medical History (Updated 07/28/24 @ 19:36 by Misha Nava MD) Elevated rheumatoid factor Migratory polyarthritis Right hand pain Left hand pain Tobacco consumption Lung disease Right shoulder pain Anxiety Assessment and Plan Assessment and plan all Dx Assessment and Plan for all problems:: Pharmacokinetic dosing service Objective: Age: 53 yo Serum creatinine: 0.6 mg/dL Height: 72.8 Inches Weight (kg): 130.18 Diagnosis: SEPSIS/ABCESS Assessment: IBW (kg): 79.44 Dosing wt(kg): 130.18 Estimated Creatinine clearance (ml/min): 130 Clearance limited to 130 ml/min to reduce risk of overdosing. CRCL method: Cockcroft and Gault using ibw(default). Drug selected: Vancomycin Vd (liters): 91.1 (factor used: 0.7 L/kg) Robert (hr-1): 0.112 Half life (hrs): 6.19 CLvanco=?? 10.203 L/hr Recommended dose: 2500 mg Interval: 12 hrs Infusion time (hrs): 2.0 Predicted peak (mcg/mL): 33.3 Predicted trough (mcg/mL): 10.87 Total body weight is being used for vancomycin dosing. Recommendations: Give Vancomycin 2500 mg q 12 hrs with an expected Cpeak of 33.3 mcg/ml and an expected Ctrough of 10.87 mcg/ml, PATIENT RECEIVED VANCOMYCIN 2000 MG ONCE 07/28/24 AT 1509 AND VANCOMYCIN 1750 MG ONCE 07/29/24 AT 0200. AUC 0-24 /SEFERINO Data: SEFERINO 0.5 mcg/mL:?? AUC/SEFERINO:? 980.1 SEFERINO 1.0 mcg/mL:?? AUC/SEFERINO:? 490.1 --------- SEFERINO 1.5 mcg/mL:?? AUC/SEFERINO:? 326.7 SEFERINO 2.0 mcg/mL:?? AUC/SEFERINO:? 245.0 Thank you for the consult
[2024-07-29] MEDS: LIDOCAINE 1% 20ML MDV 20 ML (08:25)
--- NOTE | 2024-07-29 08:34 | P.OP_ITS ---
Date of procedure: 07/29/24 Pre-op Diagnosis:: Left perineum/scrotum margin abscess Post-op Diagnosis:: Same Procedure performed:: Incision and drainage of left perineal/scrotal margin abscess Surgeon:: Paco Harris MD AUTOM[employer] MECH[employer]IC ASSISTANT:: Misha Farmer Anesthesia: local and LMA Estimated blood loss (mL): 10 Operative findings:: Complex pocket of purulence with surrounding induration Operative note:: After informed consent was obtained the patient was taken to the operating room and placed in the supine position. General anesthesia with laryngeal mask airway was achieved and he was transferred to a modified lithotomy position. His perineal/scrotal region was prepped and draped in a sterile fashion. A small point of drainage was noted along the perineum close to the anal margin. Fluid was obtained for Gram stain/culture. This opening was enlarged with electrocautery. Additional fluid was obtained for Gram stain/culture as a larger complex pocket of purulence was encountered. The pocket projected along the left scrotal margin. A counterincision in the left scrotum via an ellipse of tissue was made to facilitate packing. The wound was carefully evacuated and then packed with gauze. The surrounding region was infiltrated with 1% lidocaine. Dressings were applied and the patient was transferred to recovery in stable condition after removal of his laryngeal mask airway. Condition: stable Disposition: PACU Specimens:: Fluid for Gram stain/culture Complications:: No immediate
--- NOTE | 2024-07-29 08:48 | P.PNANES_ITS ---
[facility] Anesthesia Record Part I Anesthesia Record I Intake, IV Amount: 800 Hydration: Adequate Estimated blood loss (mL): 0 Urine output (mL): 0 Blood Products used (#): none Blood Pressure: 151/88 SaO2: 92 Pulse Rate: 92 Airway Patency: Patent Respiratory Rate: 24 Temperature: 98.3 F Patient is:: Drowsy and Stable Stable to PACU at:: 08:39
--- NOTE | 2024-07-29 09:16 | SUR.PHASEI ---
910- detailed report called to wiley johnston on [facility] floor. Pt left in [facility] care, VSS, dressings CDI, family at bedside.
[2024-07-29] MEDS: NICOTINE 21MG/24HR PATCH 21 MG TD (09:58)
[2024-07-29] MEDS: DULOXETINE 30MG CAPSULE.DR 60 MG PO (09:59)
--- NOTE | 2024-07-29 10:20 | EXP.ANES.II ---
[facility] Anesthesia Record Part II Anesthesia Record Part II Discharge Time: :09 Destination: Medical Surgical Department PACU nurse assessment reviewed?: Yes Patient Condition:: Good Anesthesia Complications:: None Swallowing reflex intact?: Yes Airway Patency: Patent Cyanosis?: No Blood Pressure: 162/96 SaO2: 94 Respiratory Rate: 16 Pulse Rate: 99 Temperature: 98.3 F Mental Status: Alert & Oriented Pain level:: 0 Nausea and/or vomitting:: None Intake, IV Amount: 0 Hydration: Adequate
--- NOTE | 2024-07-29 10:56 | SW/DCPLANNER ---
Per patient he prefers to return back to [facility] outpatient services for dressing changes. MD is aware of this plan.
--- NOTE | 2024-07-29 12:03 | CARE MANAGER ---
Patient will require wound care at discharge, order sent per Dr. Muñiz request for dry packing of perineal wound daily.
[2024-07-29] MEDS: NICOTINE 21MG/24HR PATCH 42 MG TD (14:16)
[2024-07-29] MEDS: VANCOMYCIN HCL 2,500 MG in 0.9 % SODIUM CHLORIDE 500 ML 250 MG IV (15:35)
[2024-07-29] MEDS: HYDROMORPHONE 2MG/ML SYRINGE 1 MG IV (18:04)
--- NOTE | 2024-07-29 18:54 | PC.NURSE ---
new 20g iv placed in rt upper arm, dc iv in lt fa. dsg change to scrotum. when pt first arrived to floor post op he had a steady amount of drainage from site. drainage is now at a minimal. premedicated before dsg change after the dsg change notified julio due to pt being in pain and no pain meds to give. per julio okay to give prescribed percocet early. pt has had no issues with urinating this shift. no needs at this time.
[2024-07-29] MEDS: SENNOSIDES 8.6MG/DOCUSATE 50MG TABLET 1 TAB PO (21:12)
[2024-07-29] MEDS: ALPRAZolam 1MG TABLET 2 MG PO (21:15)
[2024-07-30 00:58] LABS: Vancomycin,Trough 12.7 ug/mL (5.0-10.0)
[2024-07-30] MEDS: VANCOMYCIN HCL 2,500 MG in 0.9 % SODIUM CHLORIDE 500 ML 250 MG IV ×2 (01:26→14:09)
[2024-07-30] MEDS: OXYCODONE 10MG W/APAP 325MG TABLET 1 EACH PO ×3 (01:28→15:20)
[2024-07-30] MEDS: PIPERACILLIN/TAZO 4.5 GM in 0.9 % SODIUM CHLORIDE 100 ML IV ×2 (03:38→09:02)
[2024-07-30 04:00] VITALS: BP 168/79; PULSE 81; RESP 16; TEMP 36.8; O2SAT 96; BMI 38.0
--- NOTE | 2024-07-30 06:21 | PC.NURSE ---
Alert and oriented. Requested anxiety medication this shift per jul. Pain medication given per jul. Patient ambulated to the restroom throughout the night. Patient uses padding for drainage, serosanguineous noted. Dressing remains in place to jessie area. Patient has rested well tonight. Iv abx per jul. Call light in reach.
--- NOTE | 2024-07-30 07:41 | PC.NURSE ---
Simeon Sanchez will be providing care under this nurse's supervision.
[2024-07-30 07:49] LABS: MANUAL DIFFERENTIAL MANUAL DIFFERENTIAL (MANUAL DIFF)
[2024-07-30 07:53] LABS: Basophils # 0.1 K/mm3 (0-0.2); Basophils % 0.8 % (0.1-2.0); Eosinophils # 0.2 K/mm3 (0.0-0.4); Eosinophils % 2.4 % (0.1-12.0); Hematocrit 51.7 % (42.0-52.0); Hemoglobin 16.5 g/dL (14.1-18.0); Lymphocytes # 1.8 K/mm3 (0.7-4.5); Lymphocytes % 19.8 % (10-50); Mean Corpuscular HGB Conc 31.9 g/dL (31.8-35.4); Mean Corpuscular Hemoglobin 29.9 pg (27.0-31.2); Mean Corpuscular Volume 93.7 fl (80-94); Mean Platelet Volume 10.3 fl (7.4-10.4); Monocytes # 0.9 K/mm3 (0.1-1.0); Monocytes % 9.7 % (1.7-9.3); Neutrophils # 5.9 K/mm3 (1.8-7.8); Neutrophils % 66.4 % (37.0-80.0); Platelet Count 199 K/mm3 (142-424); Red Blood Count 5.52 M/mm3 (4.60-6.20); Red Cell Distribution Width 15.3 % (11.5-17.5); White Blood Count 8.9 K/mm3 (4.8-10.8)
[2024-07-30 08:00] VITALS: BP 142/82; PULSE 85; RESP 18; TEMP 36.7; O2SAT 95
[2024-07-30 08:02] LABS: Anion Gap 8.2 mEq/L (5-15); Blood Urea Nitrogen 6 mg/dl (9-20); Calcium 8.5 mg/dl (8.4-10.2); Carbon Dioxide 23 mmol/L (22.0-30.0); Chloride 111 mmol/L (98-107); Creatinine Clearance Estimated 259 mL/min (50-200); Estimated Glomerular Filt Rate 140 ml/min (>60); GFR (African American) 170 ML/MIN (>60); Glucose 93 mg/dl (74-100); Potassium 4.2 mmoL/L (3.5-5.1); Sodium 138 mmol/L (136-145)
[2024-07-30 08:07] LABS: C-Reactive Protein 17.5 mg/L (0-4)
--- NOTE | 2024-07-30 08:48 | EXP.PHA.CONS ---
Pharmacy Consult Date: 07/30/24 Time: 08:49 Referring provider: DR. NAVA Reason for Consult:: VANCOMYCIN PEAK/TROUGH LEVELS Allergies Allergy/AdvReac Type Severity Reaction Status Date / Time No Known Allergies Allergy Verified 07/28/24 14:05 Home Medications ?Medication ?Instructions ?Recorded ?Confirmed ?Type albuterol sulfate 90 mcg/actuation 2 puff inhalation QID PRN 05/27/24 07/28/24 Rx aerosol inhaler shortness of breath or wheezing #8.5 grams alprazolam 2 mg tablet 2 mg PO BID PRN anxiety #60 tabs 05/27/24 07/28/24 Rx duloxetine 60 mg capsule,delayed 60 mg PO DAILY #90 caps 07/06/24 07/28/24 Rx release (Cymbalta) testosterone (AndroGel) 2 pump topical DAILY #75 grams 07/06/24 07/28/24 Rx leflunomide 20 mg tablet 20 mg PO DAILY 07/28/24 07/28/24 History oxycodone-acetaminophen 10 mg-325 1 tab PO TID Pain 07/28/24 07/29/24 History mg tablet prednisone 20 mg tablet 20 mg PO DAILY 07/28/24 07/28/24 History New Prescriptions to Start Prescriptions: Height: 1.85 m Weight: 130.184 kg Laboratory Results:: Laboratory Results - last 24 hr 07/30/24 00:26: Vancomycin Trough 12.7 H 07/30/24 04:13: Vancomycin Peak 30.0 07/30/24 06:45: WBC 8.9, RBC 5.52, Hgb 16.5, Hct 51.7, MCV 93.7, MCH 29.9, MCHC 31.9, RDW 15.3, Plt Count 199, MPV 10.3, Neut % (Auto) 66.4, Lymph % (Auto) 19.8, [place] % (Auto) 9.7 H, Eos % (Auto) 2.4, Baso % (Auto) 0.8, Neut # (Auto) 5.9, Lymph # (Auto) 1.8, [place] # (Auto) 0.9, Eos # (Auto) 0.2, Baso # (Auto) 0.1, Sodium 138, Potassium 4.2, Chloride 111 H, Carbon Dioxide 23, Anion Gap 8.2, BUN 6 L, Creatinine 0.60 L, Estimated Creat Clear 259, Estimated GFR 140, Est GFR ( Amer) 170, Glucose 93, Calcium 8.5, C-Reactive Protein 17.5 H D Medical History: Medical History (Updated 07/28/24 @ 19:36 by Misha Nava MD) Elevated rheumatoid factor Migratory polyarthritis Right hand pain Left hand pain Tobacco consumption Lung disease Right shoulder pain Anxiety Assessment and Plan Assessment and plan all Dx Assessment and Plan for all problems:: BASED ON PATIENT FACTORS AND VANCOMYCIN TROUGH/PEAK LEVELS OF 12.7/30.0 RESPECTIVELY, RECOMMEND CONTINUING CURRENT VANCOMYCIN DOSE OF 2,500MG IV EVERY 12 HOURS. PHARMACY WILL CONTINUE TO MONITOR AND WILL ADJUST DOSE APPROPRIATE. -YAEL DUTTON, STEPHD
[2024-07-30] MEDS: DULOXETINE 30MG CAPSULE.DR 60 MG PO (09:01)
[2024-07-30 09:13] LABS: Erythrocyte Sedimentation Rate 7 mm/hr (0-20)
[2024-07-30 09:22] LABS: Eosinophils % 2 % (0-3); Lymphocytes % 23 % (10-50); Monocytes % 4 % (2-9); Neutrophils % 71 % (42-76); Platelet Estimate Normal; RBC Morphology Normal; Total Cells Counted 100
[2024-07-30 12:29] VITALS: BP 138/92; PULSE 100; RESP 20; TEMP 36.5; O2SAT 95
[2024-07-30] MEDS: HYDROMORPHONE 2MG/ML SYRINGE 2 MG IV (13:12)
[2024-07-30] MEDS: NICOTINE 21MG/24HR PATCH 42 MG TD (13:15)
--- NOTE | 2024-07-30 13:45 | P.PN_ITS ---
Subjective Narrative: No acute events. He is doing well. Tolerating diet. Minimal pain. He is eager to go home. Exam Data for Last 24 hours Vital signs and Labs for Last 24 Hours: Temp Pulse Resp BP Pulse Ox O2 Del Method 97.7 F 100 H 20 138/92 H 95 Room Air 07/30/24 12:29 07/30/24 12:29 07/30/24 12:29 07/30/24 12:29 07/30/24 12:29 07/30/24 12:29 Laboratory Results - last 24 hr 07/30/24 00:26: Vancomycin Trough 12.7 H 07/30/24 04:13: Vancomycin Peak 30.0 07/30/24 06:45: WBC 8.9, RBC 5.52, Hgb 16.5, Hct 51.7, MCV 93.7, MCH 29.9, MCHC 31.9, RDW 15.3, Plt Count 199, MPV 10.3, Neut % (Auto) 66.4, Lymph % (Auto) 19.8, [place] % (Auto) 9.7 H, Eos % (Auto) 2.4, Baso % (Auto) 0.8, Neut # (Auto) 5.9, Lymph # (Auto) 1.8, [place] # (Auto) 0.9, Eos # (Auto) 0.2, Baso # (Auto) 0.1, Total Counted 100, Neutrophils % (Manual) 71, Lymphocytes % (Manual) 23, Monocytes % (Manual) 4, Eosinophils % (Manual) 2, Platelet Estimate Normal, RBC Morphology Normal, ESR 7, Sodium 138, Potassium 4.2, Chloride 111 H, Carbon Dioxide 23, Anion Gap 8.2, BUN 6 L, Creatinine 0.60 L, Estimated Creat Clear 259, Estimated GFR 140, Est GFR ( Amer) 170, Glucose 93, Calcium 8.5, C- Reactive Protein 17.5 H D I & O for Last 24 hours: Intake & Output 07/27/24 07/28/24 07/29/24 07/30/24 23:59 23:59 23:59 23:59 Intake Total 180 / 180 1919 / 1919 1720 / 1720 Output Total 0 / 0 0 / 0 Balance 180 / 180 1919 1720 / 1720 Weight 277 lb 2 oz 287 lb 287 lb 0.105 oz Microbiology Reports for the Last 24 Hours: Microbiology 07/29/24 Unknown Groin Gram Stain - Final 07/29/24 Unknown Groin Abscess Culture - Preliminary 07/28/24 14:00 Blood Blood Culture - Preliminary NO GROWTH AFTER 24 HOURS 07/28/24 14:07 Blood Blood Culture - Preliminary NO GROWTH AFTER 24 HOURS Constitutional Constitutional: no acute distress *Routine Abdominal Exam Abdominal: Present soft *Routine Rectal Exam Comments: While I was in the room, the nurses were changing his dressing/packing his wounds. There is no erythema or crepitance on the scrotum or perineum. Very minimal tenderness to palpation. No fluctuance. Progress Note: A&P Assessment and plan (1) Sepsis: Status: Acute (2) Abscess of perineum: Problem details: Postoperative day 1 status post drainage of scrotal/perineal abscess. Doing well. Okay for discharge per surgery standpoint. Follow-up in approximately [address] Persaud. Will need daily outpatient packing of wounds. Status: Acute (3) TEE (generalized anxiety disorder): Status: Acute (4) Tobacco use disorder: Status: Acute (5) Alcohol dependence: Status: Acute (6) Rheumatoid arthritis: Status: Acute (7) Chronic steroid use: Status: Acute (8) Obesity (BMI 30-39.9): Status: Acute
--- NOTE | 2024-07-30 14:16 | EXP.DC.SUM ---
General Admission date:: 07/28/24 Discharge date: 07/30/24 HPI HPI HPI: This is a 53-year-old gentleman who presented to the emergency department with increasing pain in his perineal region. He was diagnosed with perineal/scrotal abscess and the surgical service was consulted. Some spontaneous drainage noted. He currently feels okay . Please see HPI forwarded from admission H&P below. Forwarded from admission H&P: Mr. Vaughan is a 53-year-old male who presented to the ER at the recommendation of his PCP. 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 States he has had a lesion in his groin before that is drained spontaneously. Thought it got better but has come back over the past several days to week. Has been taking daily baths with drainage of dark pus over the past 4 days. Denies fever or systemic symptoms. Has had pain and swelling in his groin. No difficulty urinating. Denies any known trauma. Is on steroids daily for rheumatoid arthritis. No known history of diabetes however. On no SGLT2 medications. On workup in the ER, found to have elevated white count of 13, CT showing large abscess in perineal region. Case discussed with surgery, recommends IV antibiotics and admission for surgical eval in the morning. Medicine consulted for admission. On my evaluation, patient meets criteria for sepsis. Will continue broad-spectrum antibiotics. Patient is alert and oriented, hemodynamically stable. Has received vancomycin, Zosyn, clindamycin in the ED. Hospital Course Hospital Course Hospital Course: 53-year-old male who presents with increased swelling in his groin and increased pain. Found to be septic on arrival with tachycardia, leukocytosis, source of infection. Imaging showing perineal abscess. Discussed case with ER physician, request admission for IV antibiotics and surgical eval/debridement. I agreed to admit for further management. Taken for I&D on 07/29. Abscess evacuated. Tolerated procedure well. Treated with broad-spectrum antibiotics. Showing improvement with normalization in white count and improvement in inflammatory markers. Stable to discharge home on oral regimen with daily dressing changes as an outpatient. Problems addressed as follows: Sepsis, resolved Perineal abscess -Presented with pain in groin, found to have perineal abscess. CT showing large 12 x 4 cm abscess just left of raphae and groin. No gas or concern for Nicki's gangrene. Surgery consulted. Taken for debridement on 07/29. Tolerated procedure well. Dressing changed daily with tolerance of pain. Will continue daily outpatient dressing changes at the hospital per patient request. Given his improvement in pain and discomfort and normalization in labs, stable discharge home to continue antibiotics. Will transition to Levaquin to complete 7 days total for gram-negative coverage. Will transition to clindamycin as well for anaerobic and gram-positive coverage. 7 days total of antibiotics. On day of discharge, CRP down to 17.5, ESR normal at 7. White count normal at 9. Tolerating p.o. intake. Having bowel movements. Continued stool softener to decrease risk for constipation and pain with bowel movement given location of incision to anus. Oxycodone 10/325 as needed before dressing changes. Wound culture still pending at discharge. Rheumatoid arthritis: On chronic steroids. Continue prednisone 20 mg daily. Increases risk for infection, will complicate healing. High risk for adrenal insufficiency, has been on high-dose steroids for months. Unsafe to stop at this time Anxiety: Continue Cymbalta 60 daily Tobacco use disorder: Smokes 2 packs a day, treated with 2 nicotine patches daily during admission. Strongly encourage smoking cessation. Alcohol dependence: Drinks up to 12 beers a day. Never had withdrawal symptoms. No withdrawal symptoms during admission. Continue home Xanax 2 mg twice daily as needed for his anxiety. Total time spent on discharge 32 minutes in counseling, documentation, chart review, and direct care with patient. Exam Data for Last 24 hours Vital signs and Labs for Last 24 Hours: Temp Pulse Resp BP Pulse Ox O2 Del Method 97.7 F 100 H 20 138/92 H 95 Room Air 07/30/24 12:29 07/30/24 12:29 07/30/24 12:29 07/30/24 12:29 07/30/24 12:29 07/30/24 12:29 Laboratory Results - last 24 hr 07/30/24 00:26: Vancomycin Trough 12.7 H 07/30/24 04:13: Vancomycin Peak 30.0 07/30/24 06:45: WBC 8.9, RBC 5.52, Hgb 16.5, Hct 51.7, MCV 93.7, MCH 29.9, MCHC 31.9, RDW 15.3, Plt Count 199, MPV 10.3, Neut % (Auto) 66.4, Lymph % (Auto) 19.8, [place] % (Auto) 9.7 H, Eos % (Auto) 2.4, Baso % (Auto) 0.8, Neut # (Auto) 5.9, Lymph # (Auto) 1.8, [place] # (Auto) 0.9, Eos # (Auto) 0.2, Baso # (Auto) 0.1, Total Counted 100, Neutrophils % (Manual) 71, Lymphocytes % (Manual) 23, Monocytes % (Manual) 4, Eosinophils % (Manual) 2, Platelet Estimate Normal, RBC Morphology Normal, ESR 7, Sodium 138, Potassium 4.2, Chloride 111 H, Carbon Dioxide 23, Anion Gap 8.2, BUN 6 L, Creatinine 0.60 L, Estimated Creat Clear 259, Estimated GFR 140, Est GFR ( Amer) 170, Glucose 93, Calcium 8.5, C-Reactive Protein 17.5 H D I & O for Last 24 hours: Intake & Output 07/27/24 07/28/24 07/29/24 07/30/24 23:59 23:59 23:59 23:59 Intake Total 180 / 180 1920 / 1920 1720 / 1720 Output Total 0 / 0 0 / 0 Balance 180 / 180 1920 / 1920 1720 / 1720 Weight 125.702 kg 130.181 kg 130.184 kg Microbiology Reports for the Last 24 Hours: Microbiology 07/28/24 14:07 Blood Blood Culture - Preliminary NO GROWTH AFTER 48 HOURS 07/29/24 Unknown Groin Gram Stain - Final 07/29/24 Unknown Groin Abscess Culture - Preliminary 07/28/24 14:00 Blood Blood Culture - Preliminary NO GROWTH AFTER 24 HOURS Constitutional Constitutional: no acute distress, obese, chronically ill appearing and cooperative *Routine HEENT Exam Head: Present normocephalic Eye: Present EOMI and PERRL ENT: Present mucous membranes moist *Routine Neck Exam Neck: Present supple; Absent lymphadenopathy *Routine Respiratory Exam Respiratory: Present prolonged expiratory phase and rhonchi; Absent wheezes or crackles *Routine Cardiovascular Exam Cardiovascular: Present RRR *Routine Abdominal Exam Abdominal: Present soft and normoactive bowel sounds; Absent tenderness *Routine Rectal Exam Patient deferred: visual exam *Routine Exam Comments: Perineum with packing and wound. Packing bloody. Improved discomfort on palpation *Routine Extremities Exam Extremities: Present edema (1+ bilateral lower extremity); Absent cyanosis or clubbing *Routine Skin Exam Skin: Present intact and warm; Absent rash *Routine Neurological Exam Neurological: Present alert, oriented X3 and moving all extremities; Absent altered mental status Results Data Completed and Pending Labs on day of discharge: Labs from last 24 hours 07/30/24 07/30/24 07/30/24 06:45 04:13 00:26 WBC 8.9 RBC 5.52 Hgb 16.5 Hct 51.7 MCV 93.7 MCH 29.9 MCHC 31.9 RDW 15.3 Plt Count 199 MPV 10.3 Neut % (Auto) 66.4 Lymph % (Auto) 19.8 [place] % (Auto) 9.7 H Eos % (Auto) 2.4 Baso % (Auto) 0.8 Neut # (Auto) 5.9 Lymph # (Auto) 1.8 [place] # (Auto) 0.9 Eos # (Auto) 0.2 Baso # (Auto) 0.1 Total Counted 100 Neutrophils % (Manual) 71 Lymphocytes % (Manual) 23 Monocytes % (Manual) 4 Eosinophils % (Manual) 2 Platelet Estimate Normal RBC Morphology Normal ESR 7 Sodium 138 Potassium 4.2 Chloride 111 H Carbon Dioxide 23 Anion Gap 8.2 BUN 6 L Creatinine 0.60 L Estimated Creat Clear 259 Estimated GFR 140 Est GFR ( Amer) 170 Glucose 93 Calcium 8.5 C-Reactive Protein 17.5 H D Vancomycin Peak 30.0 Vancomycin Trough 12.7 H Preliminary micro results at discharge 07/28/24 14:07 Blood Culture - Preliminary Blood NO GROWTH AFTER 48 HOURS 07/29/24 Unknown Abscess Culture - Preliminary Groin 07/28/24 14:00 Blood Culture - Preliminary Blood NO GROWTH AFTER 24 HOURS DS: Diagnosis Discharge Diagnosis (1) Sepsis: Status: Acute Code(s): A41.9 - Sepsis, unspecified organism (2) Abscess of perineum: Status: Acute Code(s): L02.215 - Cutaneous abscess of perineum Problem details: Postoperative day 1 status post drainage of scrotal/perineal abscess. Doing well. Okay for discharge per surgery standpoint. Follow-up in approximately [address] Persaud. Will need daily outpatient packing of wounds. (3) TEE (generalized anxiety disorder): Status: Acute Code(s): F41.1 - Generalized anxiety disorder (4) Tobacco use disorder: Status: Acute Code(s): F17.200 - Nicotine dependence, unspecified, uncomplicated (5) Alcohol dependence: Status: Acute Code(s): F10.20 - Alcohol dependence, uncomplicated (6) Rheumatoid arthritis: Status: Acute Code(s): M06.9 - Rheumatoid arthritis, unspecified (7) Chronic steroid use: Status: Acute (8) Obesity (BMI 30-39.9): Status: Acute Code(s): E66.9 - Obesity, unspecified Meds Home Medications and Allergies Home Medications ?Medication ?Instructions ?Recorded ?Confirmed ?Type albuterol sulfate 90 mcg/actuation 2 puff inhalation QID PRN 05/27/24 07/28/24 Rx aerosol inhaler shortness of breath or wheezing #8.5 grams alprazolam 2 mg tablet 2 mg PO BID PRN anxiety #60 tabs 05/27/24 07/28/24 Rx duloxetine 60 mg capsule,delayed 60 mg PO DAILY #90 caps 07/06/24 07/28/24 Rx release (Cymbalta) testosterone (AndroGel) 2 pump topical DAILY #75 grams 07/06/24 07/28/24 Rx leflunomide 20 mg tablet 20 mg PO DAILY 07/28/24 07/28/24 History oxycodone-acetaminophen 10 mg-325 1 tab PO TID Pain 07/28/24 07/29/24 History mg tablet prednisone 20 mg tablet 20 mg PO DAILY 07/28/24 07/28/24 History clindamycin HCl 150 mg capsule 450 mg (3 x 150 mg) PO TID 5 days 07/30/24 Rx #45 caps levofloxacin 750 mg tablet 750 mg PO DAILY 5 days #5 tabs 07/30/24 Rx oxycodone-acetaminophen 10 mg-325 1 tab PO Q6HP PRN Moderate To 07/30/24 Rx mg tablet Severe Pain (4-10) 3 days #11 tabs sennosides 8.6 mg-docusate sodium 1 tab PO HS 30 days #30 tabs 07/30/24 Rx 50 mg tablet (Stimulant Laxative Plus) New Prescriptions to Start Prescriptions: clindamycin HCl Mary Kay,Misha levofloxacin Mary Kay,Misha oxycodone-acetaminophen Mary KayMisha sennosides-docusate sodium [Stimulant Laxative Plus] Misha Muñiz Allergies Allergy/AdvReac Type Severity Reaction Status Date / Time No Known Allergies Allergy Verified 07/28/24 14:05 Discharge Plan Disposition Patient Disposition: Home, Self-Care Condition: Fair Discharge Order Discharge Orders: Discharge Order (Routine); Ordered 07/30/24 Ordered By: Misha Muñiz Follow up Plan Follow up with: Sushil Mobley MD [Primary Care Provider] - 08/05/24 8:40 am Paco Harris MD [Staff Physician] - 08/03/24 10:30 am Prescriptions/Medication Reconciliation: New sennosides-docusate sodium [Stimulant Laxative Plus] 8.6-50 mg Tablet 1 tab PO HS 30 Days Qty: 30 0RF oxycodone-acetaminophen 10-325 mg Tablet 1 tab PO Q6HP PRN (Reason: Moderate To Severe Pain (4-10)) 3 Days Qty: 11 0RF clindamycin HCl 150 mg capsule 450 mg PO TID 5 Days Qty: 45 0RF levofloxacin 750 mg tablet 750 mg PO DAILY 5 Days Qty: 5 0RF Continued alprazolam 2 mg tablet 2 mg PO BID PRN (Reason: anxiety) Qty: 60 5RF albuterol sulfate 90 mcg/actuation HFA aerosol inhaler 2 puff inhalation QID PRN (Reason: shortness of breath or wheezing) Qty: 8.5 12RF duloxetine [Cymbalta] 60 mg capsule,delayed release(DR/EC) 60 mg PO DAILY Qty: 90 3RF testosterone [AndroGel] 20.25 mg/1.25 gram (1.62 %) gel in metered-dose pump 2 pump topical DAILY Qty: 75 5RF Rx Instructions: apply 1 pump amount over max area of EACH upper arm and shoulder prednisone 20 mg tablet 20 mg PO DAILY leflunomide 20 mg tablet 20 mg PO DAILY oxycodone-acetaminophen 10-325 mg tablet 1 tab PO TID Rx Instructions: 10/325MG Problem Reconciliation Problems Reviewed?: Yes Patient Discharge Instructions ACTIVITY: Continue current activity DIET: continue same diet Patient Instructions: DI for Incision and Drainage of a Skin Abscess, DI for Surgical Site Infection Print Language: Maltese Providers Primary Care Provider: Sushil Mobley Admit Provider: Misha Muñiz Attending Provider: Misha Muñiz
--- NOTE | 2024-08-01 11:42 | SW/DCPLANNER ---
Spoke with patient on the phone. Patient stated that he is doing well. Patient asked about who to call and get more pain meds and i told him he needs to get ahold of Dr. Harris. Patient stated that he was able to get his new medicine picked up from [facility]. Patient stated that he is aware of his upcoming appointments. Patient stated that he has no other questions or concerns. Cassandra Clements
== END 2024-07-30 16:27 | disposition home or self-care (01) | DRG 579 ==
LOC: ER 15:30 → 2ND 07-29 05:25
PROVIDERS: Surgery; Admitting Provider Internal Medicine Adolescent Medicine; Emergency Provider Emergency Medicine; PCP Family Medicine; Visit Provider Internal Medicine Adolescent Medicine
PROC: 0H99XZZ Drainage of Perineum Skin, External Approach (ICD-10-PCS; CPT 56405; principal; 2024-07-29 08:00)
DX: L02.215 Cutaneous abscess of perineum (principal); A41.9 Sepsis, unspecified organism; E66.9 Obesity, unspecified; F17.210 Nicotine dependence, cigarettes, uncomplicated; M06.9 Rheumatoid arthritis, unspecified; F41.9 Anxiety disorder, unspecified; F10.20 Alcohol dependence, uncomplicated; R00.0 Tachycardia, unspecified; D72.829 Elevated white blood cell count, unspecified; Z80.9 Family history of malignant neoplasm, unspecified; Z83.3 Family history of diabetes mellitus; Z68.36 Body mass index [BMI] 36.0-36.9, adult; Z79.52 Long term (current) use of systemic steroids; Z71.6 Tobacco abuse counseling; Z79.899 Other long term (current) drug therapy
CPT/HCPCS: 36415; 74177; 80048; 80053; 80202; 82803; 83036; 83605; 83735; 84443; 85007; 85014; 85018; 85025; 85048; 85049; 85651; 86140; 86803; 87040; 87070; 87075; 87077; 87205; 87389; 99291; J0131; J0736; J1100; J1171; J1885; J2250; J2270; J2405; J2543; J3010; J3370; J3372; J7120; Q9967

== ENCOUNTER 2024-07-31 11:23 | Outpatient (CLI) | payer OTHER, SELFPAY ==
[2024-07-31 11:57] VITALS: BMI 38.0
== END 2024-07-31 23:59 | disposition home or self-care (01) ==
LOC: INF 11:25
PROVIDERS: PCP Family Medicine; Visit Provider Internal Medicine Adolescent Medicine
DX: L02.91 Cutaneous abscess, unspecified (principal)
CPT/HCPCS: G0463

== ENCOUNTER 2024-08-01 11:02 | Outpatient (CLI) | payer OTHER, SELFPAY | END 2024-08-01 11:35 | disposition home or self-care (01) | LOC: INF 11:03 | PROVIDERS: PCP Family Medicine; Visit Provider Internal Medicine Adolescent Medicine | DX: L02.215 Cutaneous abscess of perineum (principal) | CPT/HCPCS: G0463 ==

== ENCOUNTER 2024-08-02 10:24 | Outpatient (CLI) | payer OTHER, SELFPAY ==
[2024-08-02] MEDS: KETOROLAC 30MG/ML VIAL 30 MG (10:45)
--- NOTE | 2024-08-02 11:24 | PC.NURSE ---
1045- 15mg toradol given IM in right glute by Demarco, nurse [employer] dining car steward/stewardess. bandaid appied. pt tolerated well and verbalized improvement in pain from 9 to 3 on numeric pain scale after 10 mins. MISAEL Horowitz notified and will call in PO toradol for pt.
== END 2024-08-02 11:19 | disposition home or self-care (01) ==
LOC: INF 10:25
PROVIDERS: PCP Family Medicine; Visit Provider Internal Medicine Adolescent Medicine
DX: S36.60XA Unspecified injury of rectum, initial encounter (principal)
CPT/HCPCS: 96372; G0463; J1885

== ENCOUNTER 2024-08-04 10:56 | Outpatient (CLI) | payer OTHER, SELFPAY | END 2024-08-04 11:33 | disposition home or self-care (01) | LOC: INF 10:56 | PROVIDERS: PCP Family Medicine; Visit Provider Internal Medicine Adolescent Medicine | DX: N49.2 Inflammatory disorders of scrotum (principal) | CPT/HCPCS: G0463 ==

== ENCOUNTER 2024-08-06 10:15 | Outpatient (CLI) | payer OTHER, SELFPAY | END 2024-08-06 10:43 | disposition home or self-care (01) | LOC: INF 10:16 | PROVIDERS: PCP Family Medicine; Visit Provider Internal Medicine Adolescent Medicine | DX: Z48.817 Encounter for surgical aftercare following surgery on the skin and subcutaneous tissue (principal) | CPT/HCPCS: G0463 ==

== ENCOUNTER 2024-08-07 09:43 | Outpatient (CLI) | payer OTHER, SELFPAY | END 2024-08-07 09:45 | disposition home or self-care (01) | LOC: INF 09:44 | PROVIDERS: PCP Family Medicine; Visit Provider Internal Medicine Adolescent Medicine | DX: Z48.817 Encounter for surgical aftercare following surgery on the skin and subcutaneous tissue (principal) | CPT/HCPCS: G0463 ==

== ENCOUNTER 2024-08-08 10:26 | Outpatient (CLI) | payer OTHER, SELFPAY | END 2024-08-08 10:55 | disposition home or self-care (01) | LOC: INF 10:26 | PROVIDERS: PCP Family Medicine; Visit Provider Internal Medicine Adolescent Medicine | DX: N49.2 Inflammatory disorders of scrotum (principal) | CPT/HCPCS: G0463 ==

== ENCOUNTER 2024-08-09 09:51 | Outpatient (CLI) | payer OTHER, SELFPAY | END 2024-08-09 10:15 | disposition home or self-care (01) | LOC: INF 09:52 | PROVIDERS: PCP Family Medicine; Visit Provider Internal Medicine Adolescent Medicine | DX: Z09 Encounter for follow-up examination after completed treatment for conditions other than malignant neoplasm (principal) ==

== ENCOUNTER 2024-08-10 09:35 | Outpatient (CLI) | payer OTHER, SELFPAY | END 2024-08-10 10:00 | disposition home or self-care (01) | LOC: INF 09:36 | PROVIDERS: PCP Family Medicine; Visit Provider Internal Medicine Adolescent Medicine | DX: Z09 Encounter for follow-up examination after completed treatment for conditions other than malignant neoplasm (principal) | CPT/HCPCS: G0463 ==

== ENCOUNTER 2024-08-11 10:06 | Outpatient (CLI) | payer OTHER, SELFPAY | END 2024-08-11 10:20 | disposition home or self-care (01) | LOC: INF 10:06 | PROVIDERS: PCP Family Medicine; Visit Provider Internal Medicine Adolescent Medicine | DX: Z09 Encounter for follow-up examination after completed treatment for conditions other than malignant neoplasm (principal) | CPT/HCPCS: G0463 ==

== ENCOUNTER 2024-08-12 10:13 | Outpatient (CLI) | payer OTHER, SELFPAY | END 2024-08-12 10:59 | disposition home or self-care (01) | LOC: INF 10:14 | PROVIDERS: PCP Family Medicine; Visit Provider Internal Medicine Adolescent Medicine | DX: Z09 Encounter for follow-up examination after completed treatment for conditions other than malignant neoplasm (principal) | CPT/HCPCS: G0463 ==

== ENCOUNTER 2024-08-13 10:08 | Outpatient (CLI) | payer OTHER, SELFPAY | END 2024-08-13 23:59 | disposition home or self-care (01) | LOC: INF 10:08 | PROVIDERS: PCP Family Medicine; Visit Provider Internal Medicine Adolescent Medicine | DX: Z09 Encounter for follow-up examination after completed treatment for conditions other than malignant neoplasm (principal) | CPT/HCPCS: G0463 ==

== ENCOUNTER 2024-08-14 10:16 | Outpatient (CLI) | payer OTHER, SELFPAY | END 2024-08-14 10:40 | disposition home or self-care (01) | LOC: INF 10:17 | PROVIDERS: PCP Family Medicine; Visit Provider Internal Medicine Adolescent Medicine | DX: Z09 Encounter for follow-up examination after completed treatment for conditions other than malignant neoplasm (principal) | CPT/HCPCS: G0463 ==

== ENCOUNTER 2024-08-15 09:47 | Outpatient (CLI) | payer OTHER, SELFPAY | END 2024-08-15 09:55 | disposition home or self-care (01) | LOC: INF 09:47 | PROVIDERS: PCP Family Medicine; Visit Provider Internal Medicine Adolescent Medicine | DX: Z09 Encounter for follow-up examination after completed treatment for conditions other than malignant neoplasm (principal) | CPT/HCPCS: G0463 ==

== ENCOUNTER 2024-08-16 11:09 | Outpatient (CLI) | payer OTHER, SELFPAY | END 2024-08-16 11:30 | disposition home or self-care (01) | LOC: INF 11:09 | PROVIDERS: PCP Family Medicine; Visit Provider Internal Medicine Adolescent Medicine | DX: Z09 Encounter for follow-up examination after completed treatment for conditions other than malignant neoplasm (principal) | CPT/HCPCS: G0463 ==

== ENCOUNTER 2024-08-18 09:39 | Outpatient (CLI) | payer OTHER, SELFPAY | END 2024-08-18 09:58 | disposition home or self-care (01) | LOC: INF 09:39 | PROVIDERS: PCP Family Medicine; Visit Provider Internal Medicine Adolescent Medicine | DX: L02.215 Cutaneous abscess of perineum (principal) | CPT/HCPCS: G0463 ==

== ENCOUNTER 2024-08-19 11:08 | Outpatient (CLI) | payer OTHER, SELFPAY | END 2024-08-19 11:28 | disposition home or self-care (01) | LOC: INF 11:09 | PROVIDERS: PCP Family Medicine; Visit Provider Internal Medicine Adolescent Medicine | DX: N49.2 Inflammatory disorders of scrotum (principal) | CPT/HCPCS: G0463 ==

== ENCOUNTER 2024-08-20 11:26 | Outpatient (CLI) | payer OTHER, SELFPAY | END 2024-08-20 11:58 | disposition home or self-care (01) | LOC: INF 11:27 | PROVIDERS: PCP Family Medicine; Visit Provider Internal Medicine Adolescent Medicine | DX: L02.215 Cutaneous abscess of perineum (principal) | CPT/HCPCS: G0463 ==

== ENCOUNTER 2024-08-21 09:51 | Outpatient (CLI) | payer OTHER, SELFPAY | END 2024-08-21 23:59 | disposition home or self-care (01) | LOC: INF 09:52 | PROVIDERS: PCP Family Medicine; Visit Provider Internal Medicine Adolescent Medicine | DX: L02.215 Cutaneous abscess of perineum (principal) ==

== ENCOUNTER → 2024-08-22 10:45 | Outpatient (CLI) | payer OTHER, SELFPAY | END | disposition home or self-care (01) | LOC: INF 10:46 | PROVIDERS: PCP Family Medicine; Visit Provider Internal Medicine Adolescent Medicine | DX: L02.215 Cutaneous abscess of perineum (principal) | CPT/HCPCS: G0463 ==

== ENCOUNTER 2024-08-23 09:58 | Outpatient (CLI) | payer OTHER, SELFPAY | END 2024-08-23 10:20 | disposition home or self-care (01) | LOC: INF 09:58 | PROVIDERS: PCP Family Medicine; Visit Provider Surgery | DX: L02.215 Cutaneous abscess of perineum (principal) | CPT/HCPCS: G0463 ==

== ENCOUNTER 2024-08-24 10:31 | Outpatient (CLI) | payer OTHER, SELFPAY | END 2024-08-24 10:40 | disposition home or self-care (01) | LOC: INF 10:32 | PROVIDERS: PCP Family Medicine; Visit Provider Internal Medicine Adolescent Medicine | DX: L02.215 Cutaneous abscess of perineum (principal) | CPT/HCPCS: G0463 ==

== ENCOUNTER 2024-08-25 09:43 | Outpatient (CLI) | payer OTHER, SELFPAY | END 2024-08-25 10:00 | disposition home or self-care (01) | LOC: INF 09:44 | PROVIDERS: PCP Family Medicine; Visit Provider Internal Medicine Adolescent Medicine | DX: L02.215 Cutaneous abscess of perineum (principal) | CPT/HCPCS: G0463 ==

== ENCOUNTER 2024-08-26 08:58 | Outpatient (CLI) | payer OTHER, SELFPAY | END 2024-08-26 09:18 | disposition home or self-care (01) | LOC: INF 08:58 | PROVIDERS: PCP Family Medicine; Visit Provider Internal Medicine Adolescent Medicine | DX: L02.215 Cutaneous abscess of perineum (principal) | CPT/HCPCS: G0463 ==

== ENCOUNTER 2024-08-27 09:50 | Outpatient (CLI) | payer OTHER, SELFPAY | END 2024-08-27 23:59 | disposition home or self-care (01) | LOC: INF 09:51 | PROVIDERS: PCP Family Medicine; Visit Provider Internal Medicine Adolescent Medicine | DX: L02.215 Cutaneous abscess of perineum (principal) | CPT/HCPCS: G0463 ==

== ENCOUNTER 2024-08-28 10:28 | Outpatient (CLI) | payer OTHER, SELFPAY | END 2024-08-28 23:59 | disposition home or self-care (01) | LOC: INF 10:29 | PROVIDERS: PCP Family Medicine; Visit Provider Internal Medicine Adolescent Medicine | DX: L02.215 Cutaneous abscess of perineum (principal) | CPT/HCPCS: G0463 ==

== ENCOUNTER 2024-08-29 10:45 | Outpatient (CLI) | payer OTHER, SELFPAY | END 2024-08-29 10:59 | disposition home or self-care (01) | LOC: INF 10:46 | PROVIDERS: PCP Family Medicine; Visit Provider Internal Medicine Adolescent Medicine | DX: L02.215 Cutaneous abscess of perineum (principal) | CPT/HCPCS: G0463 ==

== ENCOUNTER 2024-08-30 11:36 | Outpatient (CLI) | payer OTHER, SELFPAY | END 2024-08-30 12:00 | disposition home or self-care (01) | LOC: INF 11:37 | PROVIDERS: PCP Family Medicine; Visit Provider Internal Medicine Adolescent Medicine | DX: L02.215 Cutaneous abscess of perineum (principal) | CPT/HCPCS: G0463 ==

== ENCOUNTER 2024-08-31 10:32 | Outpatient (CLI) | payer OTHER, SELFPAY | END 2024-08-31 10:51 | disposition home or self-care (01) | LOC: INF 10:33 | PROVIDERS: PCP Family Medicine; Visit Provider Internal Medicine Adolescent Medicine | DX: L02.215 Cutaneous abscess of perineum (principal) | CPT/HCPCS: G0463 ==

== ENCOUNTER 2024-09-01 10:34 | Outpatient (CLI) | payer OTHER, SELFPAY | END 2024-09-01 11:00 | disposition home or self-care (01) | LOC: INF 10:34 | PROVIDERS: PCP Family Medicine; Visit Provider Internal Medicine Adolescent Medicine | DX: L02.215 Cutaneous abscess of perineum (principal) | CPT/HCPCS: G0463 ==

== ENCOUNTER 2024-09-02 10:10 | Outpatient (CLI) | payer OTHER, SELFPAY | END 2024-09-02 10:15 | disposition home or self-care (01) | LOC: INF 10:11 | PROVIDERS: PCP Family Medicine; Visit Provider Internal Medicine Adolescent Medicine | DX: L02.215 Cutaneous abscess of perineum (principal) | CPT/HCPCS: G0463 ==

== ENCOUNTER 2024-09-03 10:38 | Outpatient (CLI) | payer OTHER, SELFPAY | END 2024-09-03 11:00 | disposition home or self-care (01) | LOC: INF 10:38 | PROVIDERS: PCP Family Medicine; Visit Provider Internal Medicine Adolescent Medicine | DX: L02.215 Cutaneous abscess of perineum (principal) | CPT/HCPCS: G0463 ==

== ENCOUNTER 2024-09-05 11:02 | Outpatient (CLI) | payer OTHER, SELFPAY | END 2024-09-05 11:10 | disposition home or self-care (01) | LOC: INF 11:04 | PROVIDERS: PCP Family Medicine; Visit Provider Internal Medicine Adolescent Medicine | DX: L02.215 Cutaneous abscess of perineum (principal) | CPT/HCPCS: G0463 ==

== ENCOUNTER 2024-09-06 13:17 | Outpatient (RCR) | payer OTHER, SELFPAY | END 2024-09-06 13:30 | LOC: INF 13:17 | PROVIDERS: PCP Family Medicine; Visit Provider Internal Medicine Adolescent Medicine | DX: L02.215 Cutaneous abscess of perineum (principal) | CPT/HCPCS: G0463 ==

== ENCOUNTER 2024-09-07 11:50 | Outpatient (CLI) | payer OTHER, SELFPAY | END 2024-09-07 12:05 | disposition home or self-care (01) | LOC: INF 11:51 | PROVIDERS: PCP Family Medicine; Visit Provider Internal Medicine Adolescent Medicine | DX: L02.215 Cutaneous abscess of perineum (principal) | CPT/HCPCS: G0463 ==

== ENCOUNTER 2025-02-03 11:54 | Outpatient (CLI) | payer OTHER, SELFPAY ==
--- OUTSIDE RECORDS SUMMARY | 2024-12-19 09:30 | XMS_ITS | Encounter Summary ---
Author Organization [facility] Address [address] [id number] Care Team Providers Care Wire Puller Name Role Phone Sushil Mobley MD Primary Care Provider [phone] Reason for Referral * Consultation (Routine) - Authorized Specialty Diagnoses / Procedures Referred By Sammy doshi Referred To Contact Physical Therapy Diagnoses Chronic pain of both ankles Marco Lugo APRN [address] [address] Phone: tel: fax: Referral ID Status Reason Start Date Expiration Date Visits Requested Visits Authorized [id number] Authorized Consult and Treat 12/19/2024 06/20/2026 1 1 * Imaging (Routine) - Closed Specialty Diagnoses / Procedures Referred By Sammy doshi Referred To Contact Cardiology Diagnoses Ankle swelling, unspecified laterality Procedures Echo, Adult Transthoracic Complete Marco Lugo APRN [address] [address] Phone: tel: fax: Referral ID Status Reason Start Date Expiration Date V isits Requested Visits Authorized [id number] Closed Perform Procedure 12/19/2024 06/20/2026 1 1 Reason for Visit * Reason Comments Consult Rheumatoid arthritis with rheumatoid factor, unspecified * Consultation (Routine) - Closed Specialty Diagnoses / Procedures Referred By Contac t Referred To Contact Rheumatology Diagnoses Rheumatoid arthritis with rheumatoid factor, unspecified ([facility]) Jason Barnett MD [address] [place] [address] Phone: tel: fax: [facility] Medicine Specialties [address] [place] [address] Phone: tel: fax: Referral ID Status Reason Start Date Expiration Date V isits Requested Visits Authorized [id number] Closed Specialty Services Required 12/06/2024 06/07/2026 1 1 Encounter Details Date Type Department Care Team (Late st Contact Info) Description 12/19/2024 9:30 AM EDT Consult [facility] Medicine Specialties [address] [place] [address] Marco Lugo, KIRK [address] [place] [address] Chronic pain of both ankles (Primary Dx); Seropositive rheumatoid arthritis of multiple sites (CMS/HCC); Ankle swelling, unspecified laterality; Other fatigue; ETOH abuse; Shortness of breath; Long-term use of hydroxychloroquine; Tobacco abuse Social History Tobacco Use Types Packs/Day Years Used Date Smoking Tobacco: Every Day Cigarettes 2 41.7 Started: 1983 Passive Smoke Exposure: Current Smokeless Tobacco: Never Tobacco Cessation:Ready to Q uit: Not Asked; Counseling Given: Not Answered Alcohol Use Standard Drinks/Week Comments Yes 40 (1 standard drink = 0.6 oz pu re alcohol) PHQ-2 Answer Date Recorded Patient Health Questionnaire-2 Score 0 12/19/2024 AUDIT-C Answer Date Recorded Q1: How often do you have a drink containing alcohol? 4 or more times a week 12/19/2024 Q2: How many drinks containi ng alcohol do you have on a typical day when you are drinking? 10 or more Q3: How often do you have si x or more drinks on one occasion? Daily or almost daily 12/19/2024 Sex and Gender Information Value Date Recorded Sex Assigned at Not on file Legal Sex Male 8:09 AM EDT Gender Identity Not on file Sexual Orientation Not on file documented as of this encounter Last Filed Vital Signs Vital Sign Reading Time Taken Comments Blood Pressure 162/93 12/19/2024 10:38 AM EDT Pulse 109 12/19/2024 9:36 AM EDT Temperature 36.8 C (98.2 F) 12/19/2024 9:36 AM EDT Respiratory Rate 20 12/19/2024 9:36 AM EDT Oxygen Saturation 93% 12/19/2024 9:36 AM EDT Inhaled Oxygen Concentration - - Weight 123 kg (270 lb 8.1 oz) 12/19/2024 9:36 AM EDT Height 188 cm (6' 2 ) 12/19/2024 9:36 AM EDT Body Mass Index 34.73 12/19/2024 9:36 AM EDT documented in this encounter Functional Status * AUDIT-C Score Answer Date of Assessment Author 12 12/19/2024 9:41 AM EDT Fatemeh Diaz * Question Answer Date of Assessment Author Q1: How often do you have a drink containing alcohol? 4 or more times a week 12/19/2024 9:41 AM EDT Kelley Diaz Q2: How many drinks containing alcohol do you have on a typical day when you are drinking? 10 or more 12/19/2024 9:41 AM EDT Kelley Diaz Q3: How often do you have six or more drinks on one occasion? Daily or almost daily 12/19/2024 9:41 AM EDT Kelley Diaz * Over the past 2 weeks, how often have you been bothered by any of the following problems? Question Answer Date of Assessment Author Little interest or pleasure in doing things Not at all 12/19/2024 9:39 AM EDT Kelley Diaz Feeling down, depressed, or hopeless Not at all 12/19/2024 9:39 AM CELINET Kelley Diaz Patient Health Questionnaire -2 Score 0 12/19/2024 9:39 AM EDT Kelley Diaz documented as of this encounter Miscellaneous Notes * Progress Notes - Marco Lugo APRN - 12/19/2024 9:30 AM EDT Images from the original note were not included. Marco Lugo APRN Rheumatology Subjective Bird Vaughan is a 54 y.o. male with PMH significant for polycythemia, COPD, ?ILD, ANN-MARIE, seen today for sero+ RA appears to be on hcq, leflunomide, ssz and has not progressed to biologics per insurer decline. Pt was referred by Jason Barnett. Ankle pain*. Feels like he is walking on 2 sprained ankles- has had a lot of pain. Bilateral atraumatic. Swelling noted. Wakes up in pain, activity makes this worse. No xrays, on prednisone which helped initially but then stopped. Has been on prednisone since 03/02. Had an echo 10 years ago that was reportedly neg. Rheumatoid arthritis/high inflammation- on triple csdmard. Dx 03/02 and was started on prednisone after throwing out his shoulders sequentially, then moved pain/swelling to his hands, wrists and knees. RF at that time was 451 he tells me. Never tried Methotrexate. Has noted mild help since the onset with his treatment. Notes chronic fatigue. Notes issues with recent sob (chronic copd) and tmj. Tobacco abuse. Wants to quit. Joints affected: Shoulders- ams 3-4 hours; activity can help but also hurts if significant enough Hands- am swelling noted; am stiffness3-4 hours if not more; activity makes this worse Ankles- pain is constant Vitals: 12/19/24 0936 BP: (!) 155/96 Pulse: 109 Resp: 20 Temp: 36.8 ??C (98.2 ??F) SpO2: 93% Allergies[1] Current Medications[2] Initial Rheum ROS Rheumatological ROS positive for dry mouth, rare oral ulcers, Family History: FH of autoimmune diseases? N/a Social History: Exposure to HCV, HBV, HIV or TB. no hx IV drug use. no hx of tobacco use. Smokes x40 years hx of alcohol use or abuse. 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 Negative for chills and fever. Respiratory: Positive for cough, shortness of breath and wheezing. Genitourinary: Negative for hematuria. Musculoskeletal: Positive for arthralgias and joint swelling. Skin: Negative for rash. Neurological: Negative for seizures. Physical Exam Vitals reviewed. Constitutional: General: He is not in acute distress. Appearance: Normal appearance. He is normal weight. He is not ill-appearing, toxic-appearing or diaphoretic. HENT: Head: Normocephalic and atraumatic. Eyes: Extraocular Movements: Extraocular movements intact. Conjunctiva/sclera: Conjunctivae normal. Cardiovascular: Rate and Rhythm: Normal rate and regular rhythm. Pulses: Normal pulses. Heart sounds: Normal heart sounds. Pulmonary: Effort: Pulmonary effort is normal. No respiratory distress. Breath sounds: Wheezing present. Musculoskeletal: General: Swelling and tenderness present. No deformity. Normal range of motion. Cervical back: Normal range of motion. Right lower leg: No edema. Left lower leg: No edema. Skin: General: Skin is warm and dry. Capillary Refill: Capillary refill takes less than 2 seconds. Coloration: Skin is not jaundiced or pale. Findings: No lesion or rash. Neurological: General: No focal deficit present. Mental Status: He is alert and oriented to person, place, and time. Gait: Gait normal. Psychiatric: Mood and Affect: Mood normal. Behavior: Behavior normal. Thought Content: Thought content normal. The following portions of the chart were reviewed this encounter and updated as appropriate: Patient global assessment: 5/10 Swollen Joint Count: Swollen: 6 Tender Joint Count: Tender: 6 = (x2) CDAI:17 Rapid 3 score: 18/30 CDAI Interpretation: 0-2.8 Remission 2.9 -10 Low disease activity 10.1-22.0 Moderate Activity 22.1-76.0 High Activity Assessment and Plan of Care: Plan of care developed with Bird Vaughan on (12/19/24): 1. Chronic pain of both ankles (Primary) 2. Sero+ RA 4. 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 On exam he has synovitis as well as generalized swelling of bilateral ankles, 2nd MCPs as well as a right index finger in general. He needs more aggressive medication in his review of systems is fairly unremarkable but does have a history of oral ulcers as well as dry mouth so we will sendoff lupus workup for completeness to rule out overlap syndrome. Can not use methotrexate in light of his alcohol abuse and we will start him on a TNF, after discussion with pharmacy. I am going to actively tried to taper off his prednisone 2.5 mg every 2 weeks and we will refill this here today. This likely we will take the better part of a few months and he is understanding of this. I will also obtain x-rays of his most painful joints at this point. - C-Reactive Protein, Plasma; Future - Sedimentation Rate, Automated; Future - XR Hand and Wrist Bilateral 2 Views; Future - Cyclic Citrul Peptide Antibody IgG; Future - Rheumatoid Factor, Plasma; Future - Acute Hepatitis Panel; Future - XR Chest 2 Views; Future - Histoplasma Galactomannan EIA, Urine (SO); Future - Quantiferon TB Gold Plus; Future - Acute Hepatitis Panel; Future - Antinuclear Antibody (LISA), HEp-2, IgG; Future - Double-Stranded DNA (dsDNA) Antibody, IgG by IFA; Future - C3 Complement; Future - C4 Complement; Future - ENAI; Future - ENAII; Future - Protein, Random, Urine with Creatinine; Future - Nguyen (ADALI) Antibody, IgG; Future - Thyroid Peroxidase Antibody; Future - XR Ankle Right 2 Views; Future - XR Ankle Left 2 Views; Future - XR Shoulder Right 2+ Views; Future - XR Shoulder Left 2+ Views; Future 3. Ankle swelling, unspecified laterality Seems to be more pitting edema but with pain noted in the ankle. We will obtain ankle x-rays as well as the above workup but we will send off for an echo in light of his alcohol abuse to rule out potential cardiogenic issues such as heart failure. - Echo, Adult Transthoracic Complete; Future 5. ETOH abuse Twelve beers a day per his report Likely triggered in the setting of pain Hopefully of treated with 1. We can taper this down 6. Shortness of breath Some wheezes noted on exam today which she states can kind of come and go he is also a tobacco abuser. I will obtain a chest x-ray but I have a very short/low threshold to obtain a high-resolution CTof his chest in light of his reported rheumatoid arthritis history. If he is indeed seropositive I will likely move forward with an HRCT pending his x-ray. - XR Chest 2 Views; Future 7. Long-term use of hydroxychloroquine To see ophtho yearly. 8. Tobacco abuse 40 year smoker RTC 4 months Patient is agreeable to the above treatment plan and had no further questions. Thanks for the opportunity to participate in the care of this patient! If there are any questions or concerns, please reach out to me personally. Thanks! Marco Lugo APRN Parts of this note were dictated using [employer] voice recognition software. As a result, errors may occur. When identified, these embedder errors are corrected, but while every attempt is made to prevent/correct these, errors may still exist. Time Spent: I personally spent a total of minutes on this encounter. This time includes face to face with patient, counseling and discussion and/or coordination of care. minutes on the encounter. Thepatient was counseled about diagnostic results, instruction for management, risk factors reduction, prognosis, compliance with visits and treatment, risks and benefits of treatments options. Prior notes (by external physicians) and results were reviewed by me with independent interpretation of labsand imaging. My note will be sent to PCP and other consulting physicians. [1] No Known Allergies [2] Current Outpatient Medications Medication Sig Dispense Refill ALPRAZolam (Xanax) 2 MG tablet Take 1 tablet by mouth. diclofenac-miSOPROStol (Arthrotec 50) 50-0.2 MG EC tablet Take by mouth twice a day. DULoxetine (Cymbalta) [address] capsule hydroxychloroquine (Plaquenil) 200 MG tablet Take 1 tablet by mouth twice a day. leflunomide (Arava) 20 MG tablet Take 1 tablet by mouth 1 time each day. predniSONE (Deltasone) 5 MG tablet Take 4 tablets by mouth As Directed (flare symptoms). Taper by 2.5mg (0.5 tabs) every day every 2 weeks until done starting 01/02 200 tablet 0 sulfaSALAzine (Azulfidine) 500 MG tablet Testosterone (Androgel) 1.62 % transdermal gel pump No current facility-administered medications for this visit. documented in this encounter Plan of Treatment Upcoming Encounters Date Type Department Care Team (Late st Contact Info) Description 04/25/2025 10:30 AM EST Office Visit [facility] Medicine Specialties [address] [place] [address] BiMarco fernando W, PRODUCTION TESTER [address] [place] [address] Scheduled Referrals Name Type Priority Associated Diagnoses Order Schedule Physical Therapy Outpatient Referral Routine Chronic pain of both ankles 1 Occurrences starting 12/19/2024 until 06/22/2026 documented as of this encounter Results * ECHO, ADULT TRANSTHORACIC COMPLETE (01/17/2025 8:45 AM EDT) Height 188.0 LEILA ISCV Weight 122.5 LEILA ISCV BSA 2.47 m2 LEILA ISCV LVLs ap2 8.3 mm LEILA ISCV Ao V2 VTI 24.5 cm LEILA ISCV Ao mean PG 5 mmHg LEILA ISCV Ao V2 Vmax 156.1 cm/s LEILA ISCV Ao max PG 10 mmHg LEILA ISCV Ao V2 mean 110.2 cm/s LEILA ISCV LV V1 VTI 20.2 cm LEILA ISCV LV V1 Vmax 120.7 cm/s LEILA ISCV AV VTI Index 0.82 LEILA ISCV LV mean PG 3.2 mmHG LEILA ISCV LV V1 mean 85.7 cm/sec LEILA ISCV LV max PG 5.8 mmHg LEILA ISCV TAPSE 27 mm LEILA ISCV RV base 34 mm LEILA ISCV LAV(MOD-4ch) 76 mL LEILA ISCV LAV(MOD-bp) Indexed 29 mL/m2 LEILA ISCV LAV(MOD-2ch) 68 mL LEILA ISCV Ao Root Diam 33 mm LEILA ISCV LVOT diam 21 mm LEILA ISCV LVOT AREA 3.5 cm2 LEILA ISCV SV(LVOT) 70 mL LEILA ISCV DANIEL(I,D) 2.9 cm2 LEILA ISCV DANIEL(VTI)/BSA_p hl 1.2 cm2/m2 LEILA ISCV PA KS(ACCEL) 45.7 mmHg LEILA ISCV PA acc slope 1,345.0 cm/s2 LEILA ISCV Anatomical Region Laterality Modality Echocardiography Narrative 01/17/2025 8:59 AM EDT Left Ventricle: The left ventricle is normal size. The LVEF cannot be measured due to poor image quality but is grossly normal (>50%). Due to poor image quality, regional wall motion was not interpretable. Right Ventricle: The right ventricle was not well visualized. The right ventricular systolic function is grossly normal. Pericardium: No pericardial effusion. There is no recent study available for direct qthg-xo-ieet comparison. Left Ventricle The left ventricle is normal size. The LVEF cannot be measured due to poor image quality but is grossly normal (>50%). Unable to assess diastolic function due to poor image quality and tachycardia. Due to poor image quality, regional wall motion was not interpretable. Right Ventricle The right ventricle was not well visualized. The right ventricular systolic function is grossly normal. Unable to estimate the right ventricular systolic pressure (RVSP) due to inadequate TR signal. Left Atrium The left atrial size is normal with an indexed volume of 16-34 mL/m2. The interatrial septum is intact with no evidence for an atrial septal defect. Right Atrium The right atrium was not well visualized. IVC/SVC The IVC was not well visualized, and an assumed pressure of 8mmHg was used for calculations. Mitral Valve The mitral valve is grossly normal. There is no mitral regurgitation. There is no mitral stenosis. Tricuspid Valve The tricuspid valve is grossly normal in appearance. There is no tricuspid regurgitation. There is no tricuspid stenosis. Aortic Valve The aortic valve appears grossly normal. There is no valvular regurgitation. There is no hemodynamically significant valvular aortic stenosis. Pulmonic Valve The pulmonic valve was not well visualized. There is no pulmonic regurgitation. There is no pulmonic stenosis. Pericardium No pericardial effusion. Great Vessels The aortic root is normal in size. The sinus of Valsalva (aortic root) diameter is 33 mm by leading edge to leading edge method. The main pulmonary artery is not well visualized. Study Details A complete transthoracic echocardiogram using two-dimensional (2D), m-mode, color and spectral flow Doppler imaging was performed. During the study the apical, parasternal, subcostal and suprasternal view was captured. Overall the study quality was poor. The study was technically difficult. The study was technically difficult due to patient's body habitus. Heart rate was tachycardic. Height: 188.0 cm. Weight: 122.5 kg. BSA: 2.47 m2. The heart rhythm during this exam was most suggestive of a sinus rhythm. Study Recommendation There is no recent study available for direct [id number] comparison. us Marco Begum Brittney PRODUCTION TESTER CV ECHO PROCEDURES Final Resul t * XR Shoulder Left 2+ Views (12/19/2024 12:18 PM EDT) Anatomical Region Laterality Modality Upper Extremities, Shoulder Left Digi graciela Radiography Impressions 12/19/2024 12:46 PM EDT Erosive changes involving the right medial and lateral malleolus with irregularity of the bilateral talar neck concerning for erosive changes. Interphalangeal joint space narrowing with soft tissue swelling of the fingers bilaterally. Small finger PIP joint irregularity and narrowing on the left concerning for erosive change. Erosive change at the right ring finger PIP joint. CRITICAL RESULT: No. COMMUNICATION: Per this written report. Drafted by William Paris MD on 12/19/2024 12:40 PM Final report signed by William Paris MD on 12/19/2024 12:46 PM Narrative 12/19/2024 12:46 PM EDT CLINICAL INDICATION: pain/swelling TECHNIQUE: XR ANKLE LEFT 3+ VIEWS, XR SHOULDER RIGHT 2+ VIEWS, XR SHOULDER LEFT 2+ VIEWS, XR CHEST 2 VIEWS, XR HAND WRIST BILATERAL 2 VIEWS, XR ANKLE RIGHT 3+ VIEWS COMPARISON: None. FINDINGS: Right hand and wrist: Small focus of mineralization at the ulnar styloid. Mild radiocarpal joint space narrowing. No carpal bone erosions. No metacarpal erosions. Interphalangeal joint space narrowing and osteophytosis is noted. Flexion at the small finger PIP joint with narrowing and osteophytosis. Radiopaque density is seen in the radial soft tissues at the middle finger middle phalanx containing punctate increased density. Marked soft tissue swelling of the index finger. Subtle erosion at the ring finger PIP joint. Mild middle and small finger soft tissue swelling. Left hand and wrist: Distal radius and ulna are unremarkable. Mild triscaphe osteoarthrosis. No metacarpal erosions. Small linear densities seen in the soft tissues along the radial aspect of the base of the index finger proximal phalanx. Flexion of the small finger PIP joint. Interphalangeal joint space narrowing is noted. Metallic foreign body at the level of the index finger middle phalanx. Soft tissue swelling and irregularity of the small finger PIP joint. Index, middle, and small finger soft tissue swelling. Left ankle: Severe soft tissue swelling. Ankle mortise and talar dome are intact. Calcaneal enthesopathy. Irregularity of the dorsal aspect of the talus. Right ankle: Severe ankle swelling. Lucency at the lateral malleolus consistent with erosive change. Irregularity of the medial malleolus. Moderate irregularity of the dorsal talar neck. Moderate talonavicular osteoarthrosis. Right shoulder: Imaged chest is unremarkable. Humeral head well positioned in the glenoid. Mild glenohumeral joint space narrowing. Moderate to severe AC joint space narrowing with bulky osteophytosis superiorly. No erosions. Left shoulder: Imaged chest is unremarkable. Moderate AC joint space narrowing with osteophytosis. Humeral head well positioned in the glenoid. No fracture or dislocation. Procedure Note William Paris MD - 12/19/2024 CLINICAL INDICATION: pain/swelling TECHNIQUE: XR ANKLE LEFT 3+ VIEWS, XR SHOULDER RIGHT 2+ VIEWS, XR SHOULDER LEFT 2+VIEWS, XR CHEST 2 VIEWS, XR HAND WRIST BILATERAL 2 VIEWS, XR ANKLE RIGHT3+ VIEWS COMPARISON: None. FINDINGS: Right hand and wrist: Small focus of mineralization at the ulnar styloid.Mild radiocarpal joint space narrowing. No carpal bone erosions. Nometacarpal erosions. Interphalangeal joint space narrowing andosteophytosis is noted. Flexion at the small finger PIP joint withnarrowing and osteophytosis. Radiopaque density is seen in the radial softtissues at the middle finger middle phalanx containing punctate increaseddensity. Marked soft tissue swelling of the index finger. Subtle erosionat the ring finger PIP joint. Mild middle and small finger soft tissueswelling. Left hand and wrist: Distal radius and ulna are unremarkable. Mildtriscaphe osteoarthrosis. No metacarpal erosions. Small linear densitiesseen in the soft tissues along the radial aspect of the base of the indexfinger proximal phalanx. Flexion of the small finger PIP joint.Interphalangeal joint space narrowing is noted. Metallic foreign body atthe level of the index finger middle phalanx. Soft tissue swelling andirregularity of the small finger PIP joint. Index, middle, and smallfinger soft tissue swelling. Left ankle: Severe soft tissue swelling. Ankle mortise and talar dome areintact. Calcaneal enthesopathy. Irregularity of the dorsal aspect of thetalus. Right ankle: Severe ankle swelling. Lucency at the lateral malleolusconsistent with erosive change. Irregularity of the medial malleolus.Moderate irregularity of the dorsal talar neck. Moderate talonavicularosteoarthrosis. Right shoulder: Imaged chest is unremarkable. Humeral head well positionedin the glenoid. Mild glenohumeral joint space narrowing. Moderate tosevere AC joint space narrowing with bulky osteophytosis superiorly. Noerosions. Left shoulder: Imaged chest is unremarkable. Moderate AC joint spacenarrowing with osteophytosis. Humeral head well positioned in the glenoid.No fracture or dislocation. IMPRESSION: Erosive changes involving the right medial and lateral malleolus withirregularity of the bilateral talar neck concerning for erosive changes. Interphalangeal joint space narrowing with soft tissue swelling of thefingers bilaterally. Small finger PIP joint irregularity and narrowing onthe left concerning for erosive change. Erosive change at the right ring finger PIP joint. CRITICAL RESULT: No. COMMUNICATION: Per this written report. Drafted by William Paris MD on 12/19/2024 12:40 PM Final report signed by William Paris MD on 12/19/2024 12:46 PM Marco Lugo APRN IMG XR PROCEDURES Final Result * XR Shoulder Right 2+ Views (12/19/2024 12:18 PM EDT) Anatomical Region Laterality Modality Upper Extremities, Shoulder Right Digi graciela Radiography Impressions 12/19/2024 12:46 PM EDT Erosive changes involving the right medial and lateral malleolus with irregularity of the bilateral talar neck concerning for erosive changes. Interphalangeal joint space narrowing with soft tissue swelling of the fingers bilaterally. Small finger PIP joint irregularity and narrowing on the left concerning for erosive change. Erosive change at the right ring finger PIP joint. CRITICAL RESULT: No. COMMUNICATION: Per this written report. Drafted by William Paris MD on 12/19/2024 12:40 PM Final report signed by William Paris MD on 12/19/2024 12:46 PM Narrative 12/19/2024 12:46 PM EDT CLINICAL INDICATION: pain/swelling TECHNIQUE: XR ANKLE LEFT 3+ VIEWS, XR SHOULDER RIGHT 2+ VIEWS, XR SHOULDER LEFT 2+ VIEWS, XR CHEST 2 VIEWS, XR HAND WRIST BILATERAL 2 VIEWS, XR ANKLE RIGHT 3+ VIEWS COMPARISON: None. FINDINGS: Right hand and wrist: Small focus of mineralization at the ulnar styloid. Mild radiocarpal joint space narrowing. No carpal bone erosions. No metacarpal erosions. Interphalangeal joint space narrowing and osteophytosis is noted. Flexion at the small finger PIP joint with narrowing and osteophytosis. Radiopaque density is seen in the radial soft tissues at the middle finger middle phalanx containing punctate increased density. Marked soft tissue swelling of the index finger. Subtle erosion at the ring finger PIP joint. Mild middle and small finger soft tissue swelling. Left hand and wrist: Distal radius and ulna are unremarkable. Mild triscaphe osteoarthrosis. No metacarpal erosions. Small linear densities seen in the soft tissues along the radial aspect of the base of the index finger proximal phalanx. Flexion of the small finger PIP joint. Interphalangeal joint space narrowing is noted. Metallic foreign body at the level of the index finger middle phalanx. Soft tissue swelling and irregularity of the small finger PIP joint. Index, middle, and small finger soft tissue swelling. Left ankle: Severe soft tissue swelling. Ankle mortise and talar dome are intact. Calcaneal enthesopathy. Irregularity of the dorsal aspect of the talus. Right ankle: Severe ankle swelling. Lucency at the lateral malleolus consistent with erosive change. Irregularity of the medial malleolus. Moderate irregularity of the dorsal talar neck. Moderate talonavicular osteoarthrosis. Right shoulder: Imaged chest is unremarkable. Humeral head well positioned in the glenoid. Mild glenohumeral joint space narrowing. Moderate to severe AC joint space narrowing with bulky osteophytosis superiorly. No erosions. Left shoulder: Imaged chest is unremarkable. Moderate AC joint space narrowing with osteophytosis. Humeral head well positioned in the glenoid. No fracture or dislocation. Procedure Note William Paris MD - 12/19/2024 CLINICAL INDICATION: pain/swelling TECHNIQUE: XR ANKLE LEFT 3+ VIEWS, XR SHOULDER RIGHT 2+ VIEWS, XR SHOULDER LEFT 2+VIEWS, XR CHEST 2 VIEWS, XR HAND WRIST BILATERAL 2 VIEWS, XR ANKLE RIGHT3+ VIEWS COMPARISON: None. FINDINGS: Right hand and wrist: Small focus of mineralization at the ulnar styloid.Mild radiocarpal joint space narrowing. No carpal bone erosions. Nometacarpal erosions. Interphalangeal joint space narrowing andosteophytosis is noted. Flexion at the small finger PIP joint withnarrowing and osteophytosis. Radiopaque density is seen in the radial softtissues at the middle finger middle phalanx containing punctate increaseddensity. Marked soft tissue swelling of the index finger. Subtle erosionat the ring finger PIP joint. Mild middle and small finger soft tissueswelling. Left hand and wrist: Distal radius and ulna are unremarkable. Mildtriscaphe osteoarthrosis. No metacarpal erosions. Small linear densitiesseen in the soft tissues along the radial aspect of the base of the indexfinger proximal phalanx. Flexion of the small finger PIP joint.Interphalangeal joint space narrowing is noted. Metallic foreign body atthe level of the index finger middle phalanx. Soft tissue swelling andirregularity of the small finger PIP joint. Index, middle, and smallfinger soft tissue swelling. Left ankle: Severe soft tissue swelling. Ankle mortise and talar dome areintact. Calcaneal enthesopathy. Irregularity of the dorsal aspect of thetalus. Right ankle: Severe ankle swelling. Lucency at the lateral malleolusconsistent with erosive change. Irregularity of the medial malleolus.Moderate irregularity of the dorsal talar neck. Moderate talonavicularosteoarthrosis. Right shoulder: Imaged chest is unremarkable. Humeral head well positionedin the glenoid. Mild glenohumeral joint space narrowing. Moderate tosevere AC joint space narrowing with bulky osteophytosis superiorly. Noerosions. Left shoulder: Imaged chest is unremarkable. Moderate AC joint spacenarrowing with osteophytosis. Humeral head well positioned in the glenoid.No fracture or dislocation. IMPRESSION: Erosive changes involving the right medial and lateral malleolus withirregularity of the bilateral talar neck concerning for erosive changes. Interphalangeal joint space narrowing with soft tissue swelling of thefingers bilaterally. Small finger PIP joint irregularity and narrowing onthe left concerning for erosive change. Erosive change at the right ring finger PIP joint. CRITICAL RESULT: No. COMMUNICATION: Per this written report. Drafted by William Paris MD on 12/19/2024 12:40 PM Final report signed by William Paris MD on 12/19/2024 12:46 PM Marco Begum Zachariahkassie PRODUCTION TESTER IMG XR PROCEDURES Final Result * XR Chest 2 Views (12/19/2024 12:18 PM EDT) Anatomical Region Laterality Modality Chest Digital Radiogra phy Impressions 12/19/2024 12:46 PM EDT Erosive changes involving the right medial and lateral malleolus with irregularity of the bilateral talar neck concerning for erosive changes. Interphalangeal joint space narrowing with soft tissue swelling of the fingers bilaterally. Small finger PIP joint irregularity and narrowing on the left concerning for erosive change. Erosive change at the right ring finger PIP joint. CRITICAL RESULT: No. COMMUNICATION: Per this written report. Drafted by William Paris MD on 12/19/2024 12:40 PM Final report signed by William Paris MD on 12/19/2024 12:46 PM Narrative 12/19/2024 12:46 PM EDT CLINICAL INDICATION: pain/swelling TECHNIQUE: XR ANKLE LEFT 3+ VIEWS, XR SHOULDER RIGHT 2+ VIEWS, XR SHOULDER LEFT 2+ VIEWS, XR CHEST 2 VIEWS, XR HAND WRIST BILATERAL 2 VIEWS, XR ANKLE RIGHT 3+ VIEWS COMPARISON: None. FINDINGS: Right hand and wrist: Small focus of mineralization at the ulnar styloid. Mild radiocarpal joint space narrowing. No carpal bone erosions. No metacarpal erosions. Interphalangeal joint space narrowing and osteophytosis is noted. Flexion at the small finger PIP joint with narrowing and osteophytosis. Radiopaque density is seen in the radial soft tissues at the middle finger middle phalanx containing punctate increased density. Marked soft tissue swelling of the index finger. Subtle erosion at the ring finger PIP joint. Mild middle and small finger soft tissue swelling. Left hand and wrist: Distal radius and ulna are unremarkable. Mild triscaphe osteoarthrosis. No metacarpal erosions. Small linear densities seen in the soft tissues along the radial aspect of the base of the index finger proximal phalanx. Flexion of the small finger PIP joint. Interphalangeal joint space narrowing is noted. Metallic foreign body at the level of the index finger middle phalanx. Soft tissue swelling and irregularity of the small finger PIP joint. Index, middle, and small finger soft tissue swelling. Left ankle: Severe soft tissue swelling. Ankle mortise and talar dome are intact. Calcaneal enthesopathy. Irregularity of the dorsal aspect of the talus. Right ankle: Severe ankle swelling. Lucency at the lateral malleolus consistent with erosive change. Irregularity of the medial malleolus. Moderate irregularity of the dorsal talar neck. Moderate talonavicular osteoarthrosis. Right shoulder: Imaged chest is unremarkable. Humeral head well positioned in the glenoid. Mild glenohumeral joint space narrowing. Moderate to severe AC joint space narrowing with bulky osteophytosis superiorly. No erosions. Left shoulder: Imaged chest is unremarkable. Moderate AC joint space narrowing with osteophytosis. Humeral head well positioned in the glenoid. No fracture or dislocation. Procedure Note William Paris MD - 12/19/2024 CLINICAL INDICATION: pain/swelling TECHNIQUE: XR ANKLE LEFT 3+ VIEWS, XR SHOULDER RIGHT 2+ VIEWS, XR SHOULDER LEFT 2+VIEWS, XR CHEST 2 VIEWS, XR HAND WRIST BILATERAL 2 VIEWS, XR ANKLE RIGHT3+ VIEWS COMPARISON: None. FINDINGS: Right hand and wrist: Small focus of mineralization at the ulnar styloid.Mild radiocarpal joint space narrowing. No carpal bone erosions. Nometacarpal erosions. Interphalangeal joint space narrowing andosteophytosis is noted. Flexion at the small finger PIP joint withnarrowing and osteophytosis. Radiopaque density is seen in the radial softtissues at the middle finger middle phalanx containing punctate increaseddensity. Marked soft tissue swelling of the index finger. Subtle erosionat the ring finger PIP joint. Mild middle and small finger soft tissueswelling. Left hand and wrist: Distal radius and ulna are unremarkable. Mildtriscaphe osteoarthrosis. No metacarpal erosions. Small linear densitiesseen in the soft tissues along the radial aspect of the base of the indexfinger proximal phalanx. Flexion of the small finger PIP joint.Interphalangeal joint space narrowing is noted. Metallic foreign body atthe level of the index finger middle phalanx. Soft tissue swelling andirregularity of the small finger PIP joint. Index, middle, and smallfinger soft tissue swelling. Left ankle: Severe soft tissue swelling. Ankle mortise and talar dome areintact. Calcaneal enthesopathy. Irregularity of the dorsal aspect of thetalus. Right ankle: Severe ankle swelling. Lucency at the lateral malleolusconsistent with erosive change. Irregularity of the medial malleolus.Moderate irregularity of the dorsal talar neck. Moderate talonavicularosteoarthrosis. Right shoulder: Imaged chest is unremarkable. Humeral head well positionedin the glenoid. Mild glenohumeral joint space narrowing. Moderate tosevere AC joint space narrowing with bulky osteophytosis superiorly. Noerosions. Left shoulder: Imaged chest is unremarkable. Moderate AC joint spacenarrowing with osteophytosis. Humeral head well positioned in the glenoid.No fracture or dislocation. IMPRESSION: Erosive changes involving the right medial and lateral malleolus withirregularity of the bilateral talar neck concerning for erosive changes. Interphalangeal joint space narrowing with soft tissue swelling of thefingers bilaterally. Small finger PIP joint irregularity and narrowing onthe left concerning for erosive change. Erosive change at the right ring finger PIP joint. CRITICAL RESULT: No. COMMUNICATION: Per this written report. Drafted by William Paris MD on 12/19/2024 12:40 PM Final report signed by William Paris MD on 12/19/2024 12:46 PM Marco Lugo APRN IMG XR PROCEDURES Final Result * XR Hand and Wrist Bilateral 2 Views (12/19/2024 12:18 PM EDT) Anatomical Region Laterality Modality Hand, Wrist Bilateral Digital Radiogra phy Impressions 12/19/2024 12:46 PM EDT Erosive changes involving the right medial and lateral malleolus with irregularity of the bilateral talar neck concerning for erosive changes. Interphalangeal joint space narrowing with soft tissue swelling of the fingers bilaterally. Small finger PIP joint irregularity and narrowing on the left concerning for erosive change. Erosive change at the right ring finger PIP joint. CRITICAL RESULT: No. COMMUNICATION: Per this written report. Drafted by William Paris MD on 12/19/2024 12:40 PM Final report signed by William Paris MD on 12/19/2024 12:46 PM Narrative 12/19/2024 12:46 PM EDT CLINICAL INDICATION: pain/swelling TECHNIQUE: XR ANKLE LEFT 3+ VIEWS, XR SHOULDER RIGHT 2+ VIEWS, XR SHOULDER LEFT 2+ VIEWS, XR CHEST 2 VIEWS, XR HAND WRIST BILATERAL 2 VIEWS, XR ANKLE RIGHT 3+ VIEWS COMPARISON: None. FINDINGS: Right hand and wrist: Small focus of mineralization at the ulnar styloid. Mild radiocarpal joint space narrowing. No carpal bone erosions. No metacarpal erosions. Interphalangeal joint space narrowing and osteophytosis is noted. Flexion at the small finger PIP joint with narrowing and osteophytosis. Radiopaque density is seen in the radial soft tissues at the middle finger middle phalanx containing punctate increased density. Marked soft tissue swelling of the index finger. Subtle erosion at the ring finger PIP joint. Mild middle and small finger soft tissue swelling. Left hand and wrist: Distal radius and ulna are unremarkable. Mild triscaphe osteoarthrosis. No metacarpal erosions. Small linear densities seen in the soft tissues along the radial aspect of the base of the index finger proximal phalanx. Flexion of the small finger PIP joint. Interphalangeal joint space narrowing is noted. Metallic foreign body at the level of the index finger middle phalanx. Soft tissue swelling and irregularity of the small finger PIP joint. Index, middle, and small finger soft tissue swelling. Left ankle: Severe soft tissue swelling. Ankle mortise and talar dome are intact. Calcaneal enthesopathy. Irregularity of the dorsal aspect of the talus. Right ankle: Severe ankle swelling. Lucency at the lateral malleolus consistent with erosive change. Irregularity of the medial malleolus. Moderate irregularity of the dorsal talar neck. Moderate talonavicular osteoarthrosis. Right shoulder: Imaged chest is unremarkable. Humeral head well positioned in the glenoid. Mild glenohumeral joint space narrowing. Moderate to severe AC joint space narrowing with bulky osteophytosis superiorly. No erosions. Left shoulder: Imaged chest is unremarkable. Moderate AC joint space narrowing with osteophytosis. Humeral head well positioned in the glenoid. No fracture or dislocation. Procedure Note William Paris MD - 12/19/2024 CLINICAL INDICATION: pain/swelling TECHNIQUE: XR ANKLE LEFT 3+ VIEWS, XR SHOULDER RIGHT 2+ VIEWS, XR SHOULDER LEFT 2+VIEWS, XR CHEST 2 VIEWS, XR HAND WRIST BILATERAL 2 VIEWS, XR ANKLE RIGHT3+ VIEWS COMPARISON: None. FINDINGS: Right hand and wrist: Small focus of mineralization at the ulnar styloid.Mild radiocarpal joint space narrowing. No carpal bone erosions. Nometacarpal erosions. Interphalangeal joint space narrowing andosteophytosis is noted. Flexion at the small finger PIP joint withnarrowing and osteophytosis. Radiopaque density is seen in the radial softtissues at the middle finger middle phalanx containing punctate increaseddensity. Marked soft tissue swelling of the index finger. Subtle erosionat the ring finger PIP joint. Mild middle and small finger soft tissueswelling. Left hand and wrist: Distal radius and ulna are unremarkable. Mildtriscaphe osteoarthrosis. No metacarpal erosions. Small linear densitiesseen in the soft tissues along the radial aspect of the base of the indexfinger proximal phalanx. Flexion of the small finger PIP joint.Interphalangeal joint space narrowing is noted. Metallic foreign body atthe level of the index finger middle phalanx. Soft tissue swelling andirregularity of the small finger PIP joint. Index, middle, and smallfinger soft tissue swelling. Left ankle: Severe soft tissue swelling. Ankle mortise and talar dome areintact. Calcaneal enthesopathy. Irregularity of the dorsal aspect of thetalus. Right ankle: Severe ankle swelling. Lucency at the lateral malleolusconsistent with erosive change. Irregularity of the medial malleolus.Moderate irregularity of the dorsal talar neck. Moderate talonavicularosteoarthrosis. Right shoulder: Imaged chest is unremarkable. Humeral head well positionedin the glenoid. Mild glenohumeral joint space narrowing. Moderate tosevere AC joint space narrowing with bulky osteophytosis superiorly. Noerosions. Left shoulder: Imaged chest is unremarkable. Moderate AC joint spacenarrowing with osteophytosis. Humeral head well positioned in the glenoid.No fracture or dislocation. IMPRESSION: Erosive changes involving the right medial and lateral malleolus withirregularity of the bilateral talar neck concerning for erosive changes. Interphalangeal joint space narrowing with soft tissue swelling of thefingers bilaterally. Small finger PIP joint irregularity and narrowing onthe left concerning for erosive change. Erosive change at the right ring finger PIP joint. CRITICAL RESULT: No. COMMUNICATION: Per this written report. Drafted by William Paris MD on 12/19/2024 12:40 PM Final report signed by William Pairs MD on 12/19/2024 12:46 PM us Marco Lugo APRN IMG XR PROCEDURES Final Result * Protein, Random, Urine with Creatinine (12/19/2024 10:55 AM EDT) Protein, Urine 37 mg/dL 12/19/2024 1:10 PM EDT [facility] Creatinine, Urine 117 mg/dL 12/19/2024 1:10 PM EDT [facility] Protein/Creatin ine Ratio 0.3 mg/mg Creat 12/19/2024 1:10 PM EDT [facility] Urine Urine specimen obtained by clean catch procedure / Unknown Non-blood Collection / Unknown 12/19/2024 10:55 AM EDT 12/19/2024 10:55 AM EDT Marco Lugo APRN LAB URINE ORDERABLES Final Res ult [facility] [address] [place] [address] * Histoplasma Galactomannan EIA, Urine (SO) (12/19/2024 10:55 AM EDT) Histoplasma Galactomannan EIA, Urine <0.3 <0.3 ng/mL 12/20/2024 3:37 PM EDT [facility]) Comment: This test is used for the measurement of Histoplasma Galactomannan in urine samples. Patients with a value greater than or equal to 0.3 ng/mL are considered to be positive for Histoplasma Galactomannan. Values greater than 25 ng/mL are considered positive and above the limit of quantitation. However, all test results should be reviewed in light of other clinical data by the physician. Specimens should be repeated if the results are positive and inconsistent with clinical findings. Patients with a value less than 0.3 ng/mL are considered to be negative for Histoplasma Galactomannan. A negative result does not rule out the diagnosis of disease as the specimen may be drawn before detectable Galactomannan antigen is present. The clarus Histoplasma Galactomannan EIA was found to be cross-reactive with Paracoccidioides, Blastomyces, and some Paola specimens. Positive tests should be confirmed in areas or patient groups where these organisms are endemic or a risk. Even though it was not tested in the clarus Histoplasma Galactomannan EIA, Talaromyces marneffei is known to cross-react with Histoplasma. The clarus Histoplasma Galactomannan EIA is not intended for monitoring therapy. Testing should not be performed as a screening procedure for the general population. The predictive value of a positive or negative result depends on the pretest likelihood of histoplasmosis disease being present. Testing should only be done when clinical evidence suggests the diagnosis of histoplasmosis disease. The clarus Histoplasma Galactomannan EIA is a product of [employer] and is labeled for in-vitro diagnostic use. This test has been registered with the FDA and is considered safe and effective for the detection of Histoplasma Galactomannan. Testing Performed at: [facility] [address] [place] [address], [address] [place] [address] Java Web Engineer: Doroteo Bolivar, PhD WAYNE (ABB) CLIA # [id number] FLAG Interpretation: A = Abnormal, H = High, L = Low Urine Urine specimen obtained by clean catch procedure / Unknown Non-blood Collection / Unknown 12/19/2024 10:55 AM EDT 12/19/2024 10:55 AM EDT [facility] (JW) - 12/20/2024 3:37 PM EDT [facility]->Immediate Marco Begum Zachariahkassie [facility] REF LAB BLOOD AND FLUID OR D Final Result [facility] JOSE ALEJANDRO) * Thyroid Peroxidase Antibody (12/19/2024 10:51 AM EDT) Thyroid Peroxidase Antibody <5 <=8 IU/mL 12/19/2024 2:54 PM EDT [facility] Blood Venous blood specimen / Unknown Venipuncture / Unknown 12/19/2024 10:51 AM EDT 12/19/2024 10:53 AM EDT Marco Lugo PRODUCTION TESTER LAB BLOOD ORDERABLES Final Res ult Performing Organization Address City/[facility]/ZIP Co de Phone Number [facility] [address] [place] [address] * Nguyen (ADALI) Antibody, IgG (12/19/2024 10:51 AM EDT) Nguyen (ADALI) Antibody, IgG 1 0 - 40 AU/mL 12/21/2024 5:37 AM EDT [facility] (JW) Serum 12/19/2024 10:5 1 AM EDT 12/19/2024 10:53 AM EDT Narrative [facility] JOSE ALEJANDRO) - 12/21/2024 5:37 AM EDT INTERPRETIVE INFORMATION: Nguyen (ADALI) Antibody, IgG 29 AU/mL or Less ............. Negative 30 - 40 AU/mL ................ Equivocal 41 AU/mL or Greater .......... Positive Nguyen antibody is highly specific (greater than 90 percent) for systemic lupus erythematosus (SLE) but only occurs in 30-35 percent of SLE cases. The presence of antibodies to Nguyen has variable associations with SLE clinical manifestations. Performed By: [facility] [address] [place] [address] Legal Entity Controller: Martin Carbajal MD, PhD CLIA Number: [id number] Marco Begum Zachariahkassie PRODUCTION TESTER LAB REF LAB BLOOD AND FLUID OR D Final Result [facility] ([place]) [address] [place] [address] * ENAII (12/19/2024 10:51 AM EDT) SSA-52 (RO52) (ADALI) Antibody, IgG 0 0 - 40 AU/mL 12/21/2024 5:37 AM EDT [facility] ([place]) SSA-60 (RO60) (ADALI) Antibody, IgG 1 0 - 40 AU/mL 12/21/2024 5:37 AM EDT [facility] ([place]) SSB ([place]) (ADALI) Antibody, IgG 0 0 - 40 AU/mL 12/21/2024 5:37 AM EDT [facility] ([place]) Blood Venous blood specimen / Unknown Venipuncture / Unknown 12/19/2024 10:51 AM EDT 12/19/2024 10:53 AM EDT Narrative [facility] ([place]) - 12/21/2024 5:37 AM EDT INTERPRETIVE INFORMATION: SSA-52 (Ro52) (ADALI) Antibody, IgG 29 AU/mL or Less ............. Negative 30 - 40 AU/mL ................ Equivocal 41 AU/mL or Greater .......... Positive SSA-52 (Ro52) and/or SSA-60 (Ro60) antibodies are associated with a diagnosis of Sjogren syndrome, systemic lupus erythematosus (SLE), and systemic sclerosis. SSA-52 antibody overlaps significantly with the major SSc-related antibodies. SSA-52 (Ro52) antibody occurs frequently in patients with inflammatory myopathies, often in the presence of interstitial lung disease. REFERENCE INTERVAL: SSA-60 (Ro60) (ADALI) Antibody, IgG 29 AU/mL or Less ............. Negative 30 - 40 AU/mL ................ Equivocal 41 AU/mL or Greater .......... Positive INTERPRETIVE INFORMATION: SSB ([place]) (ADALI) Ab, IgG 29 AU/mL or Less ............. Negative 30 - 40 AU/mL ................ Equivocal 41 AU/mL or Greater .......... Positive SSB (La) antibody is seen in 50-60% of Sjogren syndrome cases and is specific if it is the only ADALI antibody present. 15-25% of patients with systemic lupus erythematosus (SLE) and 5-10% of patients with progressive systemic sclerosis (PSS) also have this antibody. Performed By: [facility] [address] [place] [address] Legal Entity Controller: Martin Carbajal MD, PhD CLIA Number: [id number] Marco Lugo APRN LAB BLOOD ORDERABLES Final Res ult [facility] ([place]) [address] [place] [id number] * ENAI (12/19/2024 10:51 AM EDT) Nguyen/INSTRUCTIONAL RESOURCE TEACHER (ADALI) Ab, IgG 2 0 - 19 Units 12/21/2024 5:38 AM EDT [facility] ([place]) Blood Venous blood specimen / Unknown Venipuncture / Unknown 12/19/2024 10:51 AM EDT 12/19/2024 10:53 AM EDT Narrative [facility] ([facility]) - 12/21/2024 5:38 AM EDT INTERPRETIVE INFORMATION: Nguyen/INSTRUCTIONAL RESOURCE TEACHER (ADALI) Antibody, IgG 19 Units or Less ............. Negative 20 to 39 Units ............... Weak Positive 40 to 80 Units ............... Moderate Positive 81 Units or greater .......... Strong Positive Nguyen/INSTRUCTIONAL RESOURCE TEACHER antibodies are frequently seen in patients with mixed connective tissue disease (MCTD) and are also associated with other systemic autoimmune rheumatic diseases (SARDs) such as systemic lupus erythematosus (SLE), systemic sclerosis, and myositis. Antibodies targeting the Nguyen/INSTRUCTIONAL RESOURCE TEACHER antigenic complex also recognize Nguyen antigens, therefore, the Nguyen antibody response must be considered when interpreting these results. Performed By: [facility] [address] [place] [address] Legal Entity Controller: Martin Carbajal MD, PhD CLIA Number: [id number] Marco Sonikassie BRADLEY LAB BLOOD ORDERABLES Final Res ult Performing Organization Address City/[facility]/ZIP Co de Phone Number [facility] ([place]) [address] [place] [address] * C4 Complement (12/19/2024 10:51 AM EDT) C4 Complement 15 13 - 36 mg/dL 12/19/2024 1:05 PM EDT [facility] Blood Venous blood specimen / Unknown Venipuncture / Unknown 12/19/2024 10:51 AM EDT 12/19/2024 10:53 AM EDT Marco Sonikassie PRODUCTION TESTER LAB BLOOD ORDERABLES Final Res ult Performing Organization Address City/[facility]/ZIP Co de Phone Number [facility] [address] [place] [address] * C3 Complement (12/19/2024 10:51 AM EDT) C3 Complement 131 84 - 166 mg/dL 12/19/2024 1:05 PM EDT [facility] Blood Venous blood specimen / Unknown Venipuncture / Unknown 12/19/2024 10:51 AM EDT 12/19/2024 10:53 AM EDT Marco Lugo APRN LAB BLOOD ORDERABLES Final Res ult Performing Organization Address City/[facility]/ZIP Co de Phone Number [facility] [address] [place] [address] * Double-Stranded DNA (dsDNA) Antibody, IgG by IFA (12/19/2024 10:51 AM EDT) Double-Strande d DNA (dsDNA) Ab IgG IFA <1:10 <1:10 12/22/2024 3:34 PM EDT [facility] Invenias (MESSIAusra) Blood Venous blood specimen / Unknown Venipuncture / Unknown 12/19/2024 10:51 AM EDT 12/19/2024 10:53 AM EDT Narrative [facility] JOSE ALEJANDRO) - 12/22/2024 3:34 PM EDT INTERPRETIVE INFORMATION: Double-Stranded DNA (dsDNA) Antibody, IgG by IFA (using Crithidia luciliae) Positivity for anti-double stranded DNA (anti-dsDNA) IgG antibody is a diagnostic criterion of systemic lupus erythematosus (SLE). The presence of the anti-dsDNA IgG antibody is identified by IFA titer (Crithidia luciliae indirect fluorescent test [JULIO]). JULIO is highly specific for SLE with a sensitivity of 50-60 percent. Some patients with early or inactive SLE may be positive for anti-dsDNA IgG by ROYA but negative by JULIO. If the JULIO result is negative but the patient has a positive ROYA and clinical suspicion remains, consider antinuclear antibody (LISA) testing by IFA. Additional information and recommendations for testing may be found at [email or web address]. Performed By: [facility] [address] [place] [address] Legal Entity Controller: Martin Carbajal MD, PhD CLIA Number: [id number] Marco Lugo APRN LAB BLOOD ORDERABLES Final Res ult [facility] [employer]) [address] [phone] * Antinuclear Antibody (LISA), HEp-2, IgG (12/19/2024 10:51 AM EDT) LISA INTERPRETIVE COMMENT See Note 12/21/2024 6:04 AM EDT [facility] (JW) Anti Nuc Ab Screen <1:80 <1:80 12/21/2024 6:04 AM EDT [facility] ([place]) Blood Venous blood specimen / Unknown Venipuncture / Unknown 12/19/2024 10:51 AM EDT 12/19/2024 10:53 AM EDT Narrative [facility] RONA (JW) - 12/21/2024 6:04 AM EDT Clinical Interpretation: Antinuclear antibodies by IFA negative for homogeneous, speckled, nucleolar, centromere, and nuclear dots patterns. Cytoplasmic antibodies by IFA negative for reticular/AMA, discrete/GW body-like, polar/golgi-like, rods and rings, and cytoplasmic speckled patterns. INTERPRETIVE INFORMATION: LISA Interpretive Comment Presence of antinuclear antibodies (LISA) is a hallmark feature of systemic autoimmune rheumatic diseases (SARD). However, LISA lacks diagnostic specificity and is associated with a variety of diseases (cancers, autoimmune, infectious, and inflammatory conditions) and may also occur in healthy individuals in varying prevalence. The lack of diagnostic specificity requires confirmation of positive LISA by more specific serologic tests. LISA (nuclear reactivity) positive patterns reported include centromere, homogeneous, nuclear dots, nucleolar, or speckled. LISA (cytoplasmic reactivity) positive patterns reported include reticular/AMA, discrete/GW body-like, polar/golgi-like, cytoplasmic speckled or rods and rings. All positive patterns are reported to endpoint titers (1:2560). Reported patterns may help guide differential diagnosis, although they may not be specific for individual antibodies or diseases. Mitotic staining patterns not reported. Negative results do not necessarily rule out SARD. Performed By: [facility] [address] [place] [address] Legal Entity Controller: Martin Carbajal MD, PhD CLIA Number: [id number] Marco Lugo APRN LAB BLOOD ORDERABLES Final Res ult [facility] (JW) [address] [phone] * Acute Hepatitis Panel (12/19/2024 10:51 AM EDT) Hepatitis B Surf Antigen Negative Negative 12/19/2024 2:54 PM EDT [facility] Hepatitis C Antibody Negative Negative 12/19/2024 2:54 PM EDT [facility] Hepatitis A Antibody IgM Negative Negative 12/19/2024 2:54 PM EDT [facility] Hepatitis B Core Antibody IgM Negative Negative 12/19/2024 2:54 PM EDT [facility] Blood Venous blood specimen / Unknown Venipuncture / Unknown 12/19/2024 10:51 AM EDT 12/19/2024 10:53 AM EDT Marco Lugo PRODUCTION TESTER LAB BLOOD ORDERABLES Final Res ult Performing Organization Address [facility] [[email or web address]] Co de Phone Number [facility] [address] [place] [address] * Quantiferon TB Gold Plus (12/19/2024 10:51 AM EDT) Quantiferon TB Gold Plus Result Negative Negative 12/20/2024 8:10 PM EDT [facility] TB Nill Value 0.0370 IU/mL 12/20/2024 8:10 PM EDT [facility] TB Antigen 1 -0.0103 IU/mL 12/20/2024 8:10 PM EDT [facility] TB Antigen 2 -0.0096 IU/mL 12/20/2024 8:10 PM EDT [facility] TB Mitogen 5.223 IU/mL 12/20/2024 8:10 PM EDT [facility] Blood Venous blood specimen / Unknown Venipuncture / Unknown 12/19/2024 10:51 AM EDT 12/19/2024 10:53 AM EDT Narrative [facility] - 12/20/2024 8:10 PM EDT Responses to the Mitogen positive control and occasionally to TB antigen can be above the assay range. For calculation purposes: IFN-gamma values > 10 IU/mL are handled as 10 IU/mL. Marco Lugo PRODUCTION TESTER LAB BLOOD ORDERABLES Final Res ult Performing Organization Address City/[facility] [[email or web address]] Co de Phone Number [facility] [address] [place] [address] * (ABNORMAL) Rheumatoid Factor, Plasma (12/19/2024 10:51 AM EDT) Rheumatoid Factor, Plasma 392(H) <14 IU/mL 12/19/2024 12:23 PM EDT [facility] Blood Venous blood specimen / Unknown Venipuncture / Unknown 12/19/2024 10:51 AM EDT 12/19/2024 10:53 AM EDT Marco Lugo APRN LAB BLOOD ORDERABLES Final Res ult Performing Organization Address [facility]/ZIP Co de Phone Number [facility] [address] [place] [address] * (ABNORMAL) Cyclic Citrul Peptide Antibody IgG (12/19/2024 10:51 AM EDT) Cyclic Citrul Peptide Antibody IgG 22.7(H) <=5.0 U/mL 12/19/2024 3:17 PM EDT [facility] Blood Venous blood specimen / Unknown Venipuncture / Unknown 12/19/2024 10:51 AM EDT 12/19/2024 10:53 AM EDT Marco Lugo PRODUCTION TESTER LAB BLOOD ORDERABLES Final Res ult Performing Organization Address [facility]/ZIP Co de Phone Number [facility] [address] [place] [address] * (ABNORMAL) Sedimentation Rate, Automated (12/19/2024 10:51 AM EDT) Sedimentation Rate 34(H) <20 mm/hr 2024 11:45 AM EDT [facility] Blood Venous blood specimen / Unknown Venipuncture / Unknown 12/19/2024 10:51 AM EDT 12/19/2024 10:53 AM EDT Marco Lugo PRODUCTION TESTER LAB BLOOD ORDERABLES Final Res ult Performing Organization Address City/[facility]/ZIP Co de Phone Number [facility] [address] [place] [address] * (ABNORMAL) C-Reactive Protein, Plasma (12/19/2024 10:51 AM EDT) CRP, Plasma 19.1(H) <=8.0 mg/L 12/19/2024 12:09 PM EDT [facility] Blood Venous blood specimen / Unknown Venipuncture / Unknown 12/19/2024 10:51 AM EDT 12/19/2024 10:53 AM EDT Narrative [facility] - 12/19/2024 12:09 PM EDT This CRP test is appropriate for assessment of infection, systemic inflammation and/or tissue injury. To assess cardiovascular disease risk order high sensitivity CRP (CRPH). Marco Lugo APRN LAB BLOOD ORDERABLES Final Res ult [facility] [address] [place] [address] documented in this encounter Visit Diagnoses Diagnosis Chronic pain of both ankles- Primary Seropositive rheumatoid arthritis of multiple sites (CMS/HCC) Ankle swelling, unspecified laterality Other fatigue ETOH abuse Nondependent alcohol abuse, unspecified drinking behavior Shortness of breath Long-term use of hydroxychloroquine Tobacco abuse Tobacco use disorder Chronic pain of both ankles Seropositive rheumatoid arthritis of multiple sites (CMS/HCC) Shortness of breath Ankle swelling, unspecified laterality documented in this encounter Additional Health Concerns Assessment Noted Time A fall risk assessment has been complete d for the patient 12/19/2024 9:39 AM EDT A Body Mass Index follow-up plan has been documented for the patient 12/19/2024 10:35 AM EDT documented as of this encounter Care Teams Wire Puller Relationship Specialty Start Date End Date Sushil Mobley MD [address] [place] [id number] PCP - General 12/19/24 documented as of this encounter
--- OUTSIDE RECORDS SUMMARY | 2024-12-19 11:00 | XMS_ITS | Encounter Summary ---
Author Organization Healthcare Address [address] [place] [address] Care Team Providers Care Table Worker Name Role Phone Sushil Mobley MD Primary Care Provider [phone] Encounter Details Date Type Department Care Team (Latest Contact Info) Description 12/19/2024 11:00 AM EDT - 12/19/2024 11:59 PM EDT [facility] Encounter [facility] [address] [place] [address] Chronic pain of both ankles; Seropositive rheumatoid arthritis of multiple sites (CMS/HCC); Shortness of breath Discharge Disposition: Home or Self Care Social History Tobacco Use Types Packs/Day Years Used Date Smoking Tobacco: Every Day Cigarettes 2 41.7 Started: 1983 Passive Smoke Exposure: Current Smokeless Tobacco: Never Alcohol Use Standard Drinks/Week Comments Yes 40 [...] on file documented as of this encounter Functional Status * AUDIT-C Score Answer Date of Assessment Author 12 12/19/2024 9:41 AM EDT Fatemeh Diaz * Question Answer Date of Assessment Author Q1: How often do you have a drink containing alcohol? 4 or more times a week 12/19/2024 9:41 AM [place] Q2: How many drinks containing alcohol do you have on a typical day when you are drinking? 10 or more 12/19/2024 9:41 AM Kelley Hill Q3: How often do you have six or more drinks on one occasion? Daily or almost daily 12/19/2024 9:41 AM Kelley [place] * Over the past 2 weeks, how often have you been bothered by any of the following problems? Question Answer Date of Assessment Author Little interest or pleasure in doing things Not at all 12/19/2024 9:39 AM Kelley Hill Feeling down, depressed, or hopeless Not at all 12/19/2024 9:39 AM Kelley Hill Patient Health Questionnaire -2 Score 0 12/19/2024 9:39 AM Kelley Hill documented as of this encounter Medications at Time of Discharge ALPRAZolam (Xanax) 2 MG tablet Take 1 tablet by mouth. diclofenac-miSOPR OStol (Arthrotec 50) 50-0.2 MG EC tablet Take by mouth twice a day. DULoxetine (Cymbalta) [address] capsule 12/03/2024 etanercept (Enbrel SureClick) 50 MG/ML injectionIndicati ons:Seropositive rheumatoid arthritis of multiple sites (CMS/HCC) Inject 1 mL under the skin 1 time per week. 4 mL 4 12/19/2024 hydroxychloroquin e (Plaquenil) 200 MG tablet Take 1 tablet by mouth twice a day. leflunomide (Arava) 20 MG tablet Take 1 tablet by mouth 1 time each day. predniSONE (Deltasone) 5 MG tablet Take 4 tablets by mouth As Directed (flare symptoms). Taper by 2.5mg (0.5 tabs) every day every 2 weeks until done starting 01/02 200 tablet 12/19/2024 sulfaSALAzine (Azulfidine) 500 MG tablet 11/28/2024 Testosterone (Androgel) 1.62 % transdermal gel pump 10/31/2024 documented as of this encounter Plan of Treatment Upcoming Encounters Date Type Department Care Team (Late st Contact Info) Description 04/25/2025 10:30 AM EST Office Visit [place] [facility] [address] [place] [address] Marco Lugo, POWER BARKER [address] [place] [address] documented as of this encounter Procedures Procedure Name Priority Date/Time Associated Diagnosis Comments XR HAND WRIST BILATERAL 2 VIEWS Routine 12/19/2024 12:18 PM EDT Chronic pain of both ankles Seropositive rheumatoid arthritis of multiple sites (CMS/HCC) XR ANKLE RIGHT 3+ VIEWS Routine 12/19/2024 12:18 PM EDT Chronic pain of both ankles Seropositive rheumatoid arthritis of multiple sites (CMS/HCC) XR ANKLE LEFT 3+ VIEWS Routine 12/19/2024 12:18 PM EDT Chronic pain of both ankles Seropositive rheumatoid arthritis of multiple sites (CMS/HCC) XR SHOULDER RIGHT 2+ VIEWS Routine 12/19/2024 12:18 PM EDT Chronic pain of both ankles Seropositive rheumatoid arthritis of multiple sites (CMS/HCC) XR SHOULDER LEFT 2+ VIEWS Routine 12/19/2024 12:18 PM EDT Chronic pain of both ankles Seropositive rheumatoid arthritis of multiple sites (CMS/HCC) XR CHEST 2 VIEWS Routine 12/19/2024 12:1 8 PM EDT Chronic pain of both ankles Seropositive rheumatoid arthritis of multiple sites (CMS/HCC) Shortness of breath documented in this encounter Results * XR Ankle Left 3+ Views (12/19/2024 12:18 PM EDT) Anatomical Region Laterality Modality Lower Extremities, Ankle Left Digital Radiography Impressions 12/19/2024 12:46 PM EDT Erosive [...] IMG XR PROCEDURES Final Result * XR Ankle Right 3+ Views (12/19/2024 12:18 PM EDT) Anatomical Region Laterality Modality Lower Extremities, Ankle Right Digital Radiography Impressions 12/19/2024 12:46 PM EDT Erosive [...] Paris MD on 12/19/2024 12:46 PM Marco W Biery POWER BARKER IMG XR PROCEDURES Final Result * XR Shoulder Left 2+ Views (12/19/2024 [...] MD on 12/19/2024 12:46 PM Marco Lugo POWER BARKER IMG XR PROCEDURES Final Result * XR [...] MD on 12/19/2024 12:46 PM Marco Begum Brittney BRADLEY IMG XR PROCEDURES Final Result documented in this encounter Visit Diagnoses Diagnosis Chronic pain of both ankles Seropositive rheumatoid arthritis of multiple sites (CMS/[facility]) Shortness of breath documented in this encounter Additional Health Concerns Assessment Noted Time A fall risk assessment has been complete d for the patient 12/19/2024 9:39 AM EDT A Body Mass Index follow-up plan has been documented for the patient 12/19/2024 10:35 AM EDT documented as of this encounter Care Teams Table Worker Relationship Specialty Start Date End Date Sushil Mobley MD [address] [place] [id number] PCP - General 12/19/24 documented as of this encounter
--- OUTSIDE RECORDS SUMMARY | 2025-01-17 08:08 | XMS_ITS | Encounter Summary ---
Author Organization Healthcare Address [address] [place] [address] Care Team Providers Care Package Collector Name Role Phone Sushil Mobley MD Primary Care Provider [phone] Reason for Referral * Imaging (Routine) - Closed Specialty Diagnoses / Procedures Referred By Sammy doshi Referred To Contact Cardiology Diagnoses Ankle swelling, unspecified laterality Procedures Echo, Adult Transthoracic Complete Marco Lugo, KIRK [address] [address] Phone: tel: fax: Referral ID Status Reason Start Date Expiration Date V isits Requested Visits Authorized [id number] Closed Perform Procedure 12/19/2024 06/20/2026 1 1 Reason for Visit * Imaging (Routine) - Closed Specialty Diagnoses / Procedures Referred By Sammy doshi Referred To Contact Cardiology Diagnoses Ankle swelling, unspecified laterality Procedures Echo, Adult Transthoracic Complete Marco Lugo, KIRK [address] [address] Phone: tel: fax: Referral ID Status Reason Start Date Expiration Date V isits Requested Visits Authorized [id number] Closed Perform Procedure 12/19/2024 06/20/2026 1 1 Encounter Details Date Type Department Care Team (Latest Contact Info) Description 01/17/2025 8:08 AM EDT - 01/17/2025 11:59 PM EDT Hospital Encounter Medical Office Building Cardiac Diagnostic Testing Medical Office Building Echo Lab [address] [facility], [address] [place] [address] Ankle swelling, unspecified laterality Discharge Disposition: Home or Self Care Social [...] Reading Time Taken Comments Blood Pressure 162/93 01/17/2025 8:45 AM EDT Pulse - - Temperature - - Respiratory Rate - - Oxygen Saturation - - Inhaled Oxygen Concentration - - Weight - - Height - - Body Mass Index - - documented in this encounter Medications at Time of Discharge [...] Description 04/25/2025 10:30 AM EST Office Visit [place] [facility] [address] [place] [address] Marco Lugo, MANAGER NURSING [address] [place] [address] documented as of this encounter Procedures Procedure Name Priority Date/Time Associated Diagnosis Comments ECHO, ADULT TRANSTHORACIC COMPLETE Routine 01/17/2025 8:45 AM EDT Ankle swelling, unspecified laterality documented in this encounter Results * ECHO, ADULT TRANSTHORACIC [...] DANIEL(VTI)/BSA_p hl 1.2 cm2/m2 LEILA ISCV PA DC(ACCEL) 45.7 mmHg LEILA ISCV PA acc slope [...] is no recent study available for direct [id number] comparison. Left Ventricle The left ventricle is [...] is no recent study available for direct [id number] comparison. Marco Lugo APRN CV ECHO PROCEDURES Final Resul t documented in this encounter Visit Diagnoses Diagnosis Ankle swelling, unspecified laterality documented in this encounter Additional Health Concerns Assessment Noted Time A fall risk assessment has been complete d for the patient 12/19/2024 9:39 AM EDT A Body Mass Index follow-up plan has been documented for the patient 12/19/2024 10:35 AM EDT documented as of this encounter Care Teams Package Collector Relationship Specialty Start Date End Date Sushil Mobley MD [address] [place] [address] PCP - General 12/19/24 documented as of this encounter
[2025-02-03 16:01] LABS: Hematocrit 55.6 % (42.0-52.0); Immature Granulocytes % 0.5 %; Mean Corpuscular HGB Conc 33.3 g/dL (31.8-35.4); Mean Corpuscular Hemoglobin 30.6 pg (27.0-31.2); Mean Corpuscular Volume 91.9 fl (80-94); Nucleated Red Blood Cells % 0 %; Platelet Count 186 K/mm3 (142-424); Red Blood Count 6.05 M/mm3 (4.60-6.20); Red Cell Distribution Width-SD 47.2 fL; White Blood Count 9.7 K/mm3 (4.8-10.8)
[2025-02-03 16:14] LABS: Hemoglobin 18.4 g/dL (14.1-18.0)
[2025-02-03 16:42] LABS: Alanine Aminotransferase 23 U/L (12-78); Albumin Level 3.5 g/dl (3.5-5.0); Albumin/Globulin Ratio 1.3 (1.1-1.8); Alkaline Phosphatase 85 U/L (38-126); Anion Gap 9.2 mEq/L (5-15); Aspartate Amino Transferase 28 U/L (17-59); Bilirubin,Total 0.7 mg/dl (0.2-1.3); Blood Urea Nitrogen 7 mg/dl (9-20); Calcium 8.7 mg/dl (8.4-10.2); Carbon Dioxide 26 mmol/L (22.0-30.0); Chloride 101 mmol/L (98-107); Cholesterol 142 mg/dl (140-200); Creatinine,Serum 0.60 mg/dl (0.66-1.25); Estimated Glomerular Filt Rate 140 ml/min (>60); GFR (African American) 169 ML/MIN (>60); Globulin 2.8 g/dL (1.3-3.2); Glucose 116 mg/dl (74-100); HDL Cholesterol 47 mg/dl (40-60); Potassium 4.2 mmoL/L (3.5-5.1); Sodium 132 mmol/L (136-145); Total Protein,Serum 6.3 g/dl (6.3-8.2); Triglycerides 68 mg/dl (30-150)
[2025-02-03 17:33] LABS: Vitamin B12 947 pg/mL (239-931)
--- OUTSIDE RECORDS SUMMARY | 2025-02-06 10:48 | XMS_ITS | Data Portability ---
Author Organization [place] - [facility] Address [address] [place] [id number] Assessment No assessment recorded. Plan of Treatment Reminders Order Date Submit Date Provider Last Modified By Organization Details Last Modified Time Details Appointments None recorded. Lab CBC w/ auto diff 2022 023 [place] [facility], [address], [address], [place], [address], 3 08:17:44 CMP, serum or plasma 2022 023 [place] [facility], [address], [place] [address], [place], [address], 3 08:17:45 lipid panel, serum 2022 023 [place] [facility], [address], [place] [address], [place], [address], 3 08:17:46 Referral None recorded. Procedures None recorded. Surgeries None recorded. Imaging None recorded. Medication Orders diclofenac sodium 75 mg tablet,monique yed release 2022 023 [facility] [place], [address], 3 09:45:35 bupropion HCl 150 mg tablet,12 hr sustained-r elease(smok ing deterrent) 2021 022 [facility] [address], [address] [place], [address], 10:48:55 duloxetine 20 mg capsule,del ayed release 2021 023 [facility] [address], [address] [place], [address], 3 09:20:26 diclofenac sodium 75 mg tablet,monique yed release 2021 022 [facility] [address] [place], [address], 10:48:58 Patient TargetsNo targets recorded. Patient Instructions Encounter Date Encounter Id Patient Instructions Last Modified By Organization Details Last Modified Time 05/01/2022 [id number] smoking cessatio n counseling, greater than 3 minutes up to 10 minutes* [email or web address] Not available 05/08/2022 08:19:11 Reason for Referral None Reported. Results Created Date Observation Date Name Description Value Unit Range Abnormal Flag Note LastModifiedBy Organization Detail LastModifiedTime 10/25/19 23 10/25/2022 CBC WITH DIFFE RENTI AL/PL ATELE T WBC 9.9 x10e3 /uL 3.4-10 .8 Not Available [facility] ([facility]) [address] [place], [address], 10/25/2022 08:17:44 10/25/1910/25/2022 CBC WITH DIFFE RENTI AL/PL ATELE T RBC 5.84 x10e6 /uL 4.14-5 .80 above high normal Not Available [facility] ([facility]) [address] [place], [address], 10/25/2022 08:17:44 10/25/1910/25/2022 CBC WITH DIFFE RENTI AL/PL ATELE T hemoglobin 16.2 g/dL 13.0-1 7.7 Not Available [facility] ([facility]) [address] [place], [address], 10/25/2022 08:17:44 10/25/19 23 10/25/2022 CBC WITH DIFFE RENTI AL/PL ATELE T hematocrit 48.9 % 37.5-5 1.0 Not Available [facility] ([facility]) [address] [facility], [place], [address], 10/25/2022 08:17:44 10/25/19 23 10/25/2022 CBC WITH DIFFE RENTI AL/PL ATELE T MCV 84 fL 79-97 Not Available [facility] ([facility]) [address] [place], [address], 10/25/2022 08:17:44 10/25/19 23 10/25/2022 CBC WITH DIFFE RENTI AL/PL ATELE T MCH 27.7 pg 26.6-3 3.0 Not Available [facility] ([facility] [address] [place], [address], 10/25/2022 08:17:44 10/25/19 23 10/25/2022 CBC WITH DIFFE RENTI AL/PL ATELE T MCHC 33.1 g/dL 31.5-3 5.7 Not Available [facility] ([facility] [address] [place], [address], 10/25/2022 08:17:44 10/25/19 23 10/25/2022 CBC WITH DIFFE RENTI AL/PL ATELE T RDW 13.6 % 11.6-1 5.4 Not Available [facility] ([facility]) [address] [place], [address], 10/25/2022 08:17:44 10/25/19 23 10/25/2022 CBC WITH DIFFE RENTI AL/PL ATELE T platelets 253 x10e3 /uL 150-45 0 Not Available [facility] ([facility]) [address] [place], [address], 10/25/2022 08:17:44 10/25/19 23 10/25/2022 CBC WITH DIFFE RENTI AL/PL ATELE T neutrophils 65 % not estab. Not Available [facility] ([facility]) [address] [facility], [place], [address], 10/25/2022 08:17:44 10/25/19 23 10/25/2022 CBC WITH DIFFE RENTI AL/PL ATELE T lymphs 24 % not estab. Not Available [facility] ([facility]) [address] [facility], [place], [address], 10/25/2022 08:17:44 10/25/19 23 10/25/2022 CBC WITH DIFFE RENTI AL/PL ATELE T monocytes 6 % not estab. Not Available [facility] ([facility]) [address] [facility], [place], [address], 10/25/2022 08:17:44 10/25/19 23 10/25/2022 CBC WITH DIFFE RENTI AL/PL ATELE T eos 3 % not estab. Not Available [facility] ([facility]) [address] [facility], [place], [address], 10/25/2022 08:17:44 10/25/19 23 10/25/2022 CBC WITH DIFFE RENTI AL/PL ATELE T basos 1 % not estab. Not Available [facility] ([facility]) [address] [facility], [place], [address], 10/25/2022 08:17:44 10/25/19 23 10/25/2022 CBC WITH DIFFE RENTI AL/PL ATELE T immature cells PLODDING OPERATOR Not Available [facility] ([facility]) [address] [facility], [place], [address], 10/25/2022 08:17:44 10/25/19 23 10/25/2022 CBC WITH DIFFE RENTI AL/PL ATELE T neutrophils (absolute) 6.5 x10e3 /uL 1.4-7. 0 Not Available [facility] ([facility]) [address] [facility], [place], [address], 10/25/2022 08:17:44 10/25/19 23 10/25/2022 CBC WITH DIFFE RENTI AL/PL ATELE T lymphs (absolute) 2.4 x10e3 /uL 0.7-3. 1 Not Available [facility] ([facility] [address] [facility], [place], [address], 10/25/2022 08:17:44 10/25/19 23 10/25/2022 CBC WITH DIFFE RENTI AL/PL ATELE T monocytes(ab solute) 0.6 x10e3 /uL 0.1-0. 9 Not Available [facility] ([facility]) [address] [facility], [place], [address], 10/25/2022 08:17:44 10/25/19 23 10/25/2022 CBC WITH DIFFE RENTI AL/PL ATELE T eos (absolute) 0.3 x10e3 /uL 0.0-0. 4 Not Available [facility] ([facility] [address] [facility], [place], [address], 10/25/2022 08:17:44 10/25/19 23 10/25/2022 CBC WITH DIFFE RENTI AL/PL ATELE T baso (absolute) 0.1 x10e3 /uL 0.0-0. 2 Not Available [facility] ([facility] [address] [facility], [place], [address], 10/25/2022 08:17:44 10/25/19 23 10/25/2022 CBC WITH DIFFE RENTI AL/PL ATELE T immature granulocytes 1 % not estab. Not Available [facility] ([facility]) [address] [facility], [place], [address], 10/25/2022 08:17:44 10/25/19 23 10/25/2022 CBC WITH DIFFE RENTI AL/PL ATELE T immature grans (abs) 0.1 x10e3 /uL 0.0-0. 1 Not Available [facility] ([facility] [address] [facility], [place], [address], 10/25/2022 08:17:44 10/25/19 23 10/25/2022 CBC WITH DIFFE RENTI AL/PL ATELE T NRBC PLODDING OPERATOR Not Available [facility] ([facility]) [address] [facility], [place], [address], 10/25/2022 08:17:44 10/25/19 23 10/25/2022 CBC WITH DIFFE RENTI AL/PL ATELE T hematology comments: PLODDING OPERATOR Not Available [facility] ([facility]) [address] [facility], [place], [address], 10/25/2022 08:17:44 10/25/19 23 10/25/2022 COMP. METAB OLIC PANEL (14) glucose 123 mg/dL 70-99 above high normal Not Available [facility] ([facility]) [address] [place], [address], 10/25/2022 08:17:45 10/25/19 23 10/25/2022 COMP. METAB OLIC PANEL (14) BUN 13 mg/dL 6-24 Not Available [facility] ([facility] [address] [facility], [place], [address], 10/25/2022 08:17:45 10/25/19 23 10/25/2022 COMP. METAB OLIC PANEL (14) creatinine 0.71 mg/dL 0.76-1 .27 below low normal Not Available [facility] ([facility]) [address] [facility], [place], [address], 10/25/2022 08:17:45 10/25/19 23 10/25/2022 COMP. METAB OLIC PANEL (14) eGFR 110 mL/mi n/1.7 3 >59 Not Available [facility] ([facility] [address] [place], [address], 10/25/2022 08:17:45 10/25/19 23 10/25/2022 COMP. METAB OLIC PANEL (14) BUN/creatini ne ratio 18 9-20 Not Available [facility] ([facility]) [address] [place], [address], 10/25/2022 08:17:45 10/25/19 23 10/25/2022 COMP. METAB OLIC PANEL (14) sodium 137 mmol/ L 134-14 4 Not Available [facility] ([facility]) [address] [facility] [place], [address], 10/25/2022 08:17:45 10/25/19 23 10/25/2022 COMP. METAB OLIC PANEL (14) potassium 5.0 mmol/ L 3.5-5. 2 Not Available [facility] ([facility] [address] [facility] [place], [address], 10/25/2022 08:17:45 10/25/19 23 10/25/2022 COMP. METAB OLIC PANEL (14) chloride 103 mmol/ L 96-106 Not Available [facility] ([facility]) [address] [facility] [place], [address], 10/25/2022 08:17:45 10/25/19 23 10/25/2022 COMP. METAB OLIC PANEL (14) carbon dioxide, total 19 mmol/ L 20-29 below low normal Not Available [facility] ([facility]) [address] [facility] [place], [address], 10/25/2022 08:17:45 10/25/19 23 10/25/2022 COMP. METAB OLIC PANEL (14) calcium 9.0 mg/dL 8.7-10 .2 Not Available [facility] ([facility]) [address] [facility] [place], [address], 10/25/2022 08:17:45 10/25/19 23 10/25/2022 COMP. METAB OLIC PANEL (14) protein, total 6.8 g/dL 6.0-8. 5 Not Available [facility] ([facility]) [address] [place], [address], 10/25/2022 08:17:45 10/25/19 23 10/25/2022 COMP. METAB OLIC PANEL (14) albumin 3.8 g/dL 3.8-4. 9 Not Available [facility] ([facility]) [address] [place], [address], 10/25/2022 08:17:45 10/25/19 23 10/25/2022 COMP. METAB OLIC PANEL (14) globulin, total 3.0 g/dL 1.5-4. 5 Not Available [facility] ([facility] [address] [place], [address], 10/25/2022 08:17:45 10/25/19 23 10/25/2022 COMP. METAB OLIC PANEL (14) A/G ratio 1.3 1.2-2. 2 Not Available [facility] ([facility] [address] [place], [address], 10/25/2022 08:17:45 10/25/19 23 10/25/2022 COMP. METAB OLIC PANEL (14) bilirubin, total <0.2 mg/dL 0.0-1. 2 Not Available [facility] ([facility]) [address] [place], [address], 10/25/2022 08:17:45 10/25/19 23 10/25/2022 COMP. METAB OLIC PANEL (14) alkaline phosphatase 104 IU/L 44-121 Not Available [facility] ([facility] [address] [place], [address], 10/25/2022 08:17:45 10/25/19 23 10/25/2022 COMP. METAB OLIC PANEL (14) AST (SGOT) 17 IU/L 0-40 Not Available [facility] ([facility]) [address] [place], [address], 10/25/2022 08:17:45 10/25/19 23 10/25/2022 COMP. METAB OLIC PANEL (14) ALT (SGPT) 23 IU/L 0-44 Not Available [facility] ([facility] [address] [place], [address], 10/25/2022 08:17:45 10/25/19 23 10/25/2022 LIPID PANEL cholesterol, total 185 mg/dL 100-19 9 Not Available [facility] ([facility] [address] [place], [address], 10/25/2022 08:17:46 10/25/19 23 10/25/2022 LIPID PANEL triglyceride s 127 mg/dL 0-149 Not Available [facility] ([facility] [address] [place], [address], 10/25/2022 08:17:46 10/25/19 23 10/25/2022 LIPID PANEL HDL cholesterol 34 mg/dL >39 below low normal Not Available [facility] ([facility] [address] [place], [address], 10/25/2022 08:17:46 10/25/19 23 10/25/2022 LIPID PANEL VLDL cholesterol megan 23 mg/dL 5-40 Not Available [facility] ([facility] [address] [place], [address], 10/25/2022 08:17:46 10/25/19 23 10/25/2022 LIPID PANEL LDL chol calc ([facility]) 128 mg/dL 0-99 above high normal Not Available [facility] ([facility] [address] [place], [address], 10/25/2022 08:17:46 10/25/1910/25/2022 LIPID PANEL comment: PLODDING OPERATOR Not Available [facility] ([facility] [address] [facility], [place], [address], 10/25/2022 08:17:46 10/25/1910/29/2022 HEMOG LOBIN A1C hemoglobin A1C 6.0 % 4.8-5. 6 above high normal Predi abete s: 5.7 - 6.4 Diabe jeaneth: >6.4 Glyce johnathan contr ol for adult s with diabe jeaneth: <7.0 Not Available [facility] ([facility] [address] [facility], [place], [address], 10/29/2022 03:37:01 10/25/1910/28/2022 MATTIE EN AUTHO RIZAT ION written authorizatio n Commen t Mattie en Autho rizat ion Recei faith. Autho rizat ion recei faith from MATTIE EN REQUE ST 10-28 Logge d by Darien davis Not Available [facility] ([facility]) [address] [facility], [place], [address], 10/29/2022 03:37:02 Result Notes None recorded. Problems Name Problem SNOMED Code Status Onset Date Resolution Date Notes Provider Name and Address Organization Details Recorded Time Osteoarthriti s of multiple joints 632229998 Active BECCA Wu [facility] [place] 2 11:37:50 Essential hypertension 76943562 Active 2021 BECCA gaston [facility] & [place] 2 14:38:26 Generalized anxiety disorder 86420262 Active 2021 ARLET COLLIER, SERVICE DESK AGENT [address] [place] [address],[place] [address], [place], [address] , BECCA Montano [facility] - [place] & [place] 2 10:45:03 Problem Notes None recorded. Procedures Surgical History Date Name Laterality Status Provider Name and Address Organization Details Recorded Time tonsillectomy completed tania hugh [facility] & [place] 04/30/2022 14:40:19 Imaging Results None recorded. Procedure Notes None recorded. Medical Equipment None Reported. Allergies No known drug allergies Medications Name Sig Start Date Stop Date Status Note LastModified by Organization Details LastModified Time diclofenac sodium 75 mg tablet,del ayed release Take 1 tablet by mouth twice daily active Not Available Not Available No t Available furosemide 20 mg tablet Take 1 tablet every day by oral route as directed for 90 days. 05/01 completed Not Available Not Available Not Available duloxetine 20 mg capsule,de layed release Take 1 capsule every day by oral route as directed for 90 days. 10/24 completed Not Available Not Available Not Available potassium chloride ER 20 mEq tablet,ext ended release Take 1 tablet every day by oral route as directed for 90 days. 05/01 completed Not Available Not Available Not Available buprenorph ine 8.6 mg-naloxon e 2.[address] 2 tablets every day by sublingu al route as directed . active Pt states he buys off the street (Suboxo ne) Not Available Not Available Not Available bupropion HCl 150 mg tablet,12 hr sustained- release(sm oking deterrent) 1 tablet in a.m. for 5 days, then increase to 1 tablet twice daily 2021 active Not Available Not Available Not Avai lable Vitals Date Recorded Body height Body mass index (BMI) Body weight Body temperature Oxygen saturation Oxygen saturation in Arterial blood by Pulse oximetry Heart rate Systolic And Diastolic Provider Name and Address Organization Details Last Updated DateTime 3 187.96 cm 34.1 kg/m2 579584. 78 g 97.5 [degF] 96 % 96 % 104 /min 132/78 mm[Hg] tania hugh MATAMOROS [facility] 3 09:17:07 Date Recorded Body height Body mass index (BMI) Body weight Body temperature Oxygen saturation Oxygen saturation in Arterial blood by Pulse oximetry Heart rate Systolic And Diastolic Provider Name and Address Organization Details Last Updated DateTime 2 187.96 cm 36.2 kg/m2 813869. 1 g 97.7 [degF] 97 % 97 % 107 /min 124/88 mm[Hg] tania MATAMOROS [facility] & [place] 2 10:20:17 Social History Question Answer Notes LastModified by Organizat ion Details LastModified Time Tobacco Smoking Status Current Every Day Smoker tania gomez, BECCA [facility] & [place] 04/30/2022 14:40:01 Which Illicit Or Recreational Drugs Have You Used? Marijuana Information not available 10/21/2022 What Was The Date Of Your Most Recent Tobacco Screening? 04/30/2022 [email or web address] Information not available 10/21/2022 Are You Passively Exposed To Smoke? Yes [email or web address] Information no t available 10/21/2022 How Much Tobacco Do You Smoke? 2 PPD [email or web address] Information not available 04/30/2022 How Many Years Have You Smoked Tobacco? 40 [email or web address] Information not available 10/21/2022 Sex: Unknown Functional Status Question Answer Note LastModified by Organizat ion Details LastModified Time Do you use any illicit or recreational drugs? No [email or web address] Information not available 10/21/2022 What is your level of alcohol consumption? None [email or web address] Information not available 10/21/2022 What is your exercise level? None [email or web address] Information not available 10/21/2022 Mental Status Question Answer Note LastModified by Organization D etails LastModified Time Do you feel stressed (tense, restless, nervous, or anxious, or unable to sleep at night)? [id number] Information not available 10/21/2022 Family History Relationship Description Onset Age of this Age Resolved Age Notes LastModified by Organization Details LastModified Time Father Chronic obstructive pulmonary disease [email or web address] Not available 2021 14:38:42 Medical History Condition Response Coronary Artery Disease N None N Other N Gout N Blood Diseases N Kidney Stones N Hyperthyroidism N Blood Transfusion N Breast Cancer N COPD N Depression N Lung Disease N Hypothyroidism N Defects or Inherited Disease N Developmental or Behavioral Disorders N Breast Problem N Difficulty Swallowing N Anesthesia Complications N Anxiety Disorder N Meniere's disease N Muscle, Joint, or Bone Problems N Vision or Eye Problems N Arthritis Y Infertility N Polyps N Cancer N Stroke N Varicosities N Endometriosis N Bladder or Kidney Problems N High Cholesterol N Liver Disease N Headaches N Fibromyalgia N Kidney Disease N Allergies/Hayfever N Heart Problems N Ear or Hearing Problems N Hospitalizations N Thyroid Problems N GI Problems N ADD/ADHD N Eating Disorder N Skin Problems N Anemia N Constipation N Mental Illness N Diabetes N Ovarian Cancer N Bedwetting N Seizures/Epilepsy N Tuberculosis N Eczema N Abuse/Domestic Violence N Diverticulitis N Asthma N Reflux/GERD N Jaundice N Hepatitis N Heart Disease N Pulmonary Embolism N Chronic Ear Infections N Pre-Eclampsia N Hypertension Y Chicken Pox N Autism Spectrum Disorder (ASD) N Osteoporosis N Thrombophilias N Immunizations Vaccine Type Date Status Note Provider Nam e and Address Organization Details Recorded Time COVID-19, mRNA, LNP-S, PF, 30 mcg/0.3 mL dose 1 completed tania hugh null, [place] - [facility] & [place] 10/24/2022 09:17:44 COVID-19, mRNA, LNP-S, PF, 30 mcg/0.3 mL dose 1 completed tania hugh null, [place] - [facility] & [place] 10/24/2022 09:17:44 COVID-19, mRNA, LNP-S, PF, 30 mcg/0.3 mL dose 1 completed tania hugh null, [place] - [facility] [place] 10/24/2022 09:17:44 Td (adult), 2 Lf tetanus toxoid, preservative free, adsorbed 9 completed tania hugh null, [place] - [facility] & [place] 10/24/2022 09:17:44 Past Encounters Encounter ID Performer Location Encounter Start Date Encounter Closed Date Diagnosis/Indication Diagnosis SNOMED-CT Code Diagnosis ICD10 Code Diagnosis IMO Codes Diagnosis Note [id number] KIRK [facility]DI[facility] [address] [place] [address] 05/01/2022 10:08:15 05/01/2022 10:40:11 Osteoarthritis of multiple joints 996278587 M15.9 Current medication regimen appropriat e for control of symptoms. Generalize d anxiety disorder 53610419 F41.1 Current medication regimen appropriat e for control of symptoms. Continuous dependence on cigarette smoking 7543620993 14839 F17.210 Counseling given in reference to medication regimen. Education given to follow-up sooner if symptoms do not improve. [id number] MD NICHOLAS Caicedo [facility] [address] [place] [address] 10/24/2022 09:03:28 10/24/2022 09:43:14 Essential hypertension 13446930 I10 Laboratory assessment has been ordered, will await results to determine further treatment plan. Long-term drug therapy 435272022 Z79.899 Laboratory assessment has been ordered, will await results to determine further treatment plan. Standard ed adult depression screening tool completed 9740700580 27248 Z13.89 Osteoarthr itis of multiple joints 276806766 M15.9 Current medication regimen appropriat e for control of symptoms. Benign par oxysmal positional vertigo 460999196 H81.13 This is likely allergy mediated. Patient was instructed on use of OTC antihistam ine such as Kimberly and Flonase. Follow-up as needed. Health Concerns Section Related Observation LastModified by Organization Detai ls LastModified Time None Recorded Concern Status LastModified by Organization Details LastModified Time None Recorded Advance Directives Directive None Recorded Payers Insurance Date Sequence Insurance Name Policy Number Policy Rodríguez Covered Member ID Rodríguez Member ID Guarantor Name 10/24/2022 1 [facility] [id number] Bird Vaughan [id number] Bird Vaughan 02/13/2023 1 [facility] [id number] Bird Vaughan [id number] Bird Vaughan Notes Date Note Type Note Provider Name and Address Organization Details Recorded Time 05/01/2022 text/html Patient is a 51-year-old male who presents today for evaluation and management of chronic disease processes. Patient states that he would like to discuss medication for smoking cessation. Patient states that he smokes 2-3 packs per day. ARLET COLLIER APRN [address] [facility],[address], [place], [address], [facility] & [place] 05/01/2022 10:59:39 10/24/2022 text/html Patient is a 51-year-old male who presents today for chronic disease management and fasting laboratory assessment. Patient reports that over the last several weeks he has been experiencing intermittent episodes of dizziness with head movement, with associated clear rhinorrhea, frequent sneezing and bilateral ear fullness. ARLET COLLIER, SERVICE DESK AGENT [address] [facility],[address], [place], [address], [place] - [place] - [place] & [place] 10/24/2022 09:45:45
--- OUTSIDE RECORDS SUMMARY | 2025-02-06 10:48 | XMS_ITS | Clinical Summary ---
Author Organization Healthcare Address [address] [place] [address] Care Team Providers Care Spare Hand Carding Name Role Phone Sushil Mobley MD Primary Care Provider [phone] Allergies No known active allergies Medications ALPRAZolam (Xanax) 2 MG tablet Take 1 tablet by mouth. Active diclofenac-miSOP ROStol (Arthrotec 50) 50-0.2 MG EC tablet Take by mouth twice a day. Active DULoxetine (Cymbalta) [address] capsule 5 Active hydroxychloroqui ne (Plaquenil) 200 MG tablet Take 1 tablet by mouth twice a day. Active leflunomide (Arava) 20 MG tablet Take 1 tablet by mouth 1 time each day. Active sulfaSALAzine (Azulfidine) 500 MG tablet 5 Active Testosterone (Androgel) 1.62 % transdermal gel pump 5 Active predniSONE (Deltasone) 5 MG tablet Take 4 tablets by mouth As Directed (flare symptoms). Taper by 2.5mg (0.5 tabs) every day every 2 weeks until done starting 01/02 200 tablet 5 Active etanercept (Enbrel SureClick) 50 MG/ML injectionIndicat ions:Seropositiv e rheumatoid arthritis of multiple sites (CMS/HCC) Inject 1 mL under the skin 1 time per week. 4 mL 4 5 Active Active Problems Problem Noted Date Diagnosed Date Polycythemia 10/13/2024 Neutrophilia 10/13/2024 Encounters Date Type Department Care Team Description 01/24/2025 Telephone [facility] [address], [address] [place] [address] Marco Lugo APRN 01/17/2025 8:08 AM EDT - 01/17/2025 11:59 PM EDT Hospital Encounter Medical Office Building Cardiac Diagnostic Testing Medical Office Building Echo Lab [address], [address] [place] [address] Ankle swelling, unspecified laterality Discharge Disposition: Home or Self Care 01/17/2025 Travel 01/13/2025 Orders Only [facility] [address] [place] [address] Reno Jeff MD Polycythemia; Neutrophilia 12/26/2024 Telephone [facility] Medicine Specialties [address], [address] [place] [phone] Mel Siddiqi Results 12/19/2024 11:00 AM EDT - 12/19/2024 11:59 PM EDT Hospital Encounter [facility] Radiology [address], [address] [place] [phone] Chronic pain of both ankles; Seropositive rheumatoid arthritis of multiple sites (CMS/HCC); Shortness of breath Discharge Disposition: Home or Self Care 12/19/2024 9:30 AM EDT Consult [facility] Medicine Specialties [address], [address] [place] [phone] Marco Lugo, MUNICIPAL MAINTENANCE WORKER Chronic pain of both ankles (Primary Dx); Seropositive rheumatoid arthritis of multiple sites (CMS/HCC); Ankle swelling, unspecified laterality; Other fatigue; ETOH abuse; Shortness of breath; Long-term use of hydroxychloroquine; Tobacco abuse 12/19/2024 Results Follow-Up [facility] Medicine Specialties [address], [address] [place] [phone] Marco Lugo APRN 12/19/2024 Telephone [facility] Medicine Specialties [address], [address] [place] [phone] Caleb Linder, PharmD Enbrel New Start 12/19/2024 Travel 11/28/2024 Orders Only [facility] Medicine Specialties [address] [place] [phone] Jason Barnett MD 11/28/2024 Orders Only [facility] Medicine Specialties [address], [address] [place] [phone] Jason Barnett MD 11/28/2024 Orders Only [facility] Medicine Specialties [address], [address] [place] [phone] Jason Barnett MD 11/28/2024 Orders Only [facility] Medicine Specialties [address], [address] [place] [phone] Jason Barnett MD 11/28/2024 Orders Only [facility] Medicine Specialties [address], [address] [place] [phone] Jason Barnett MD from Last 3 Months Immunizations Immunization Administration Dates Next Due bead Button COVID-19 Vaccine (Purple Cap) 12 + 04/14/2021 TD (adult), 2 Lf tetanus tox oid, preservative free, adsorbed 12/04/1998 Social History Tobacco Use Types Packs/Day Years [...] on file Sexual Orientation Not on file Last Filed Vital Signs Vital Sign Reading Time Taken Comments Blood Pressure 162/93 01/17/2025 8:45 AM EDT Pulse 109 12/19/2024 9:36 AM [...] Mass Index 34.73 12/19/2024 9:36 AM EDT Plan of Treatment Upcoming Encounters Date Type Department Care Team (Late st Contact Info) Description 04/25/2025 10:30 AM EST Office Visit [facility] [address], [address] [place] [address] Marco Lugo, KIRK [address] [place] [address] Health Maintenance Due Date Last Done Comments [facility]-HIV Screening 1969 [facility]-/Child/Adol SDOH Screenings 1969 [facility]- SDOH Screenings 11/22/1987 [facility]-Adult SDOH Screenings 11/22/1987 [facility]-Hepatitis B Vaccines (1 of 3 - 19+ 3-dose series) 1988 [facility]-Pneumococcal Vaccine: 50 + Years (1 of 2 - PCV) 1988 [facility]-Zoster Vaccines (1 of 2) 1988 [facility]-DTaP,Tdap,and Td Vaccine s (1 - Tdap) 12/05/1998 12/04/1998 CT Colonography 2014 Colonoscopy 2014 FIT-DNA 2014 FIT 2014 FOBT 2014 Sigmoidoscopy 2014 [facility]-Colorectal Cancer Screening 2014 [facility]-Lung Cancer Screening 11/22/2019 [id number] Vaccine ( season) 2025 04/14/2021, 09/06/2020, 08/04/2020 [facility]-Influenza Vaccine (#1) 2025 [facility]-Depression Screening 12/19/2025 12/19/2024 [facility]-Hepatitis C Screening Completed 12/19/2024 [facility]-Obesity Intervention Completed 12/19/2024 HPV Vaccines Aged Out No longer eligi ble based on patient's age to complete this topic [facility]-HIB Vaccines Aged Out No longer e ligible based on patient's age to complete this topic [facility]-Hepatitis A Vaccines Aged Out No longer eligible based on patient's age to complete this topic [facility]-IPV Vaccines Aged Out No longer e ligible based on patient's age to complete this topic [facility]-Rotavirus Vaccines Aged Out No lo nger eligible based on patient's age to complete this topic Procedures Procedure Name Priority Date/Time Associated Diagnosis Comments ECHO, ADULT TRANSTHORACIC COMPLETE Routine 01/17/2025 8:45 AM EDT Ankle swelling, unspecified laterality XR ANKLE LEFT 3+ VIEWS Routine 12:18 PM EDT Chronic pain of both [...] of multiple sites (CMS/HCC) Shortness of breath XR HAND WRIST BILATERAL 2 VIEWS Routine 12/19/2024 12:18 PM EDT Chronic pain of both ankles Seropositive rheumatoid arthritis of multiple sites (CMS/HCC) HISTOPLASMA GALACTOMANNAN EIA, URINE (SO) Routine 12/19/2024 10:55 AM EDT Chronic pain of both ankles Seropositive rheumatoid arthritis of multiple sites (CMS/HCC) PROTEIN, URINE, RANDOM WITH CREATININE Routine 12/19/2024 10:55 AM EDT Chronic pain of both ankles Seropositive rheumatoid arthritis of multiple sites (CMS/HCC) C-REACTIVE PROTEIN, PLASMA Routine 12/19/2024 10:51 AM EDT Chronic pain of both ankles Seropositive rheumatoid arthritis of multiple sites (CMS/HCC) SEDIMENTATION RATE, AUTOMATED Routine 12/19/2024 10:51 AM EDT Chronic pain of both ankles Seropositive rheumatoid arthritis of multiple sites (CMS/HCC) CYCLIC CITRUL PEPTIDE ANTIBODY IGG Routine 12/19/2024 10:51 AM EDT Chronic pain of both ankles Seropositive rheumatoid arthritis of multiple sites (CMS/HCC) RHEUMATOID FACTOR, PLASMA Routine 12/19/2024 10:51 AM EDT Chronic pain of both ankles Seropositive rheumatoid arthritis of multiple sites (CMS/HCC) QUANTIFERON TB GOLD PLUS Routine 12/19/2024 10:51 AM EDT Chronic pain of both ankles Seropositive rheumatoid arthritis of multiple sites (CMS/HCC) ACUTE HEPATITIS PANEL Routine 12/19/2024 10:51 AM EDT Chronic pain of both ankles Seropositive rheumatoid arthritis of multiple sites (CMS/HCC) ANTINUCLEAR ANTIBODY (LISA) WITH HEP-2 SUBSTRATE, IGG BY IFA (SO) Routine 12/19/2024 10:51 AM EDT Chronic pain of both ankles Seropositive rheumatoid arthritis of multiple sites (CMS/HCC) DOUBLE-STRANDED DNA (DSDNA) ANTIBODY, IGG BY IFA (SO) Routine 12/19/2024 10:51 AM EDT Chronic pain of both ankles Seropositive rheumatoid arthritis of multiple sites (CMS/HCC) C3 COMPLEMENT Routine 12/19/2024 10:51 AM EDT Chronic pain of both ankles Seropositive rheumatoid arthritis of multiple sites (CMS/HCC) C4 COMPLEMENT Routine 12/19/2024 10:51 AM EDT Chronic pain of both ankles Seropositive rheumatoid arthritis of multiple sites (CMS/HCC) NGUYEN/MEDICARE SALES REPRESENTATIVE (ADALI) ANTIBODY, IGG (SO) Routine 12/19/2024 10:51 AM EDT Chronic pain of both ankles Seropositive rheumatoid arthritis of multiple sites (CMS/HCC) EXTRACTABLE NUCLEAR ANTIGEN ANTIBODIES (SSA 52, SSA 60, AND SSB) (SO) Routine 12/19/2024 10:51 AM EDT Chronic pain of both ankles Seropositive rheumatoid arthritis of multiple sites (CMS/HCC) NGUYEN (ADALI) ANTIBODY, IGG (SO) Routine 12/19/2024 10:51 AM EDT Chronic pain of both ankles Seropositive rheumatoid arthritis of multiple sites (CMS/HCC) THYROID PEROXIDASE ANTIBODY Routine 12/19/2024 10:51 AM EDT Chronic pain of both ankles Seropositive rheumatoid arthritis of multiple sites (CMS/HCC) SEDIMENTATION RATE, AUTOMATED Routine 11/28/2024 3:22 PM EDT CREATININE, PLASMA Routine 11/28/2024 3: 22 PM EDT HEPATIC FUNCTION PANEL Routine 3:22 PM EDT GFR Routine 11/28/2024 3:22 PM EDT CBC WITH AUTO DIFFERENTIAL Routine 11/28/2024 3:22 PM EDT from Last 3 Months Results * ECHO, ADULT TRANSTHORACIC COMPLETE (01/17/2025 [...] DANIEL(VTI)/BSA_p hl 1.2 cm2/m2 LEILA ISCV PA TN(ACCEL) 45.7 mmHg LEILA ISCV PA acc slope [...] is no recent study available for direct okjc-th-tlns comparison. Left Ventricle The left ventricle is [...] is no recent study available for direct qqux-am-ojti comparison. Marco Lugo APRN CV ECHO PROCEDURES Final Resul t * XR Hand and Wrist Bilateral 2 [...] Paris MD on 12/19/2024 12:46 PM Marco Kel Brittney BRADLEY IMG XR PROCEDURES Final Result * XR [...] MD on 12/19/2024 12:46 PM Marco Lugo MUNICIPAL MAINTENANCE WORKER IMG XR PROCEDURES Final Result * XR Ankle Left 3+ Views (12/19/2024 [...] MD on 12/19/2024 12:46 PM Marco Lugo MUNICIPAL MAINTENANCE WORKER IMG XR PROCEDURES Final Result * XR [...] APRN IMG XR PROCEDURES Final Result * Histoplasma Galactomannan EIA, Urine (SO) (12/19/2024 10:55 AM EDT) Histoplasma Galactomannan EIA, Urine <0.3 <0.3 ng/mL 12/20/2024 3:37 PM EDT [facility] (BEAKER) Comment: This test is used for the [...] Histoplasma Galactomannan EIA is a product of [employer], [employer]. and is labeled for in-vitro diagnostic use. This test has been registered with the FDA and is considered safe and effective for the detection of Histoplasma Galactomannan. Testing Performed at: [facility] [address] [place] [address], [address] [place] [address] Senior Vice President & General Counsel: Doroteo Bolivar, PhD [facility] ([facility]) CLIA # [id number] FLAG Interpretation: A = Abnormal, H = High, L = Low Urine Urine specimen obtained by clean catch procedure / Unknown Non-blood Collection / Unknown 12/19/2024 10:55 AM EDT 12/19/2024 10:55 AM EDT Narrative [facility] (JW) - 12/20/2024 3:37 PM EDT Release to patient in [facility]->Immediate Marco Lugo APRN LAB REF LAB BLOOD AND FLUID OR D Final Result Performing Organization Address City/[facility]/ZIP Co de Phone Number [facility] (JW) * Protein, Random, Urine with Creatinine (12/19/2024 10:55 AM EDT) Protein, Urine 37 mg/dL 12/19/2024 1:10 PM EDT [facility] Creatinine, Urine 117 mg/dL 12/19/2024 1:10 PM EDT [facility] Protein/Creatin ine Ratio 0.3 mg/mg Creat 12/19/2024 1:10 PM EDT [facility] Urine Urine specimen obtained by clean catch procedure / Unknown Non-blood Collection / Unknown 12/19/2024 10:55 AM EDT 12/19/2024 10:55 AM EDT Marco Lugo APRN LAB URINE ORDERABLES Final Res ult [facility] [address] [place] [address] * Nguyen (ADALI) Antibody, IgG (12/19/2024 10:51 AM EDT) Nguyen (ADALI) Antibody, IgG 1 0 - 40 AU/mL 12/21/2024 5:37 AM EDT [facility] ([facility]) Serum 12/19/2024 10:5 1 AM EDT 12/19/2024 10:53 AM EDT Narrative [facility] ([facility]) - 12/21/2024 5:37 AM EDT INTERPRETIVE INFORMATION: [...] associations with SLE clinical manifestations. Performed By: [facility] [address] [place] [address] Estimator Binding: Martin Carbajal MD, PhD CLIA Number: [id number] Marco Lugo APRN LAB REF LAB BLOOD AND FLUID OR D Final Result [facility] ([facility]) [address] [place] [address] * ENAII (12/19/2024 10:51 AM EDT) SSA-52 (RO52) (ADALI) Antibody, IgG 0 0 - 40 AU/mL 12/21/2024 5:37 AM EDT [facility] ([facility]) SSA-60 (RO60) (ADALI) Antibody, IgG 1 0 - 40 AU/mL 12/21/2024 5:37 AM EDT [facility] ([facility]) SSB (LA) (ADALI) Antibody, IgG 0 0 - 40 AU/mL 12/21/2024 5:37 AM EDT [facility] RONA [facility]) Blood Venous blood specimen / Unknown Venipuncture / Unknown 12/19/2024 10:51 AM EDT 12/19/2024 10:53 AM EDT Narrative [facility]) - 12/21/2024 5:37 AM EDT INTERPRETIVE INFORMATION: [...] (PSS) also have this antibody. Performed By: [facility] [address] [place] [id number] Estimator Binding: Martin Carbajal MD, PhD CLIA Number: [id number] Marco Lugo APRN LAB BLOOD ORDERABLES Final Res ult Performing Organization Address City/[facility]/ZIP Co de Phone Number [facility] ([facility]) [address] [place] [address] * ENAI (12/19/2024 10:51 AM EDT) Nguyen/MEDICARE SALES REPRESENTATIVE (ADALI) Ab, IgG 2 0 - 19 Units 12/21/2024 5:38 AM EDT [facility] ([facility]) Blood Venous blood specimen / Unknown Venipuncture / Unknown 12/19/2024 10:51 AM EDT 12/19/2024 10:53 AM EDT Narrative [facility] ([facility]) - 12/21/2024 5:38 AM EDT INTERPRETIVE INFORMATION: Nguyen/MEDICARE SALES REPRESENTATIVE (ADALI) Antibody, IgG 19 Units or Less ............. Negative 20 to 39 Units ............... Weak Positive 40 to 80 Units ............... Moderate Positive 81 Units or greater .......... Strong Positive Nguyen/MEDICARE SALES REPRESENTATIVE antibodies are frequently seen in patients with mixed connective tissue disease (MCTD) and are also associated with other systemic autoimmune rheumatic diseases (SARDs) such as systemic lupus erythematosus (SLE), systemic sclerosis, and myositis. Antibodies targeting the Nguyen/MEDICARE SALES REPRESENTATIVE antigenic complex also recognize Nguyen antigens, therefore, the Nguyen antibody response must be considered when interpreting these results. Performed By: [facility] [address] [place] [id number] Estimator Binding: Martin Carbajal MD, PhD CLIA Number: [id number] Marco Sonikassie MUNICIPAL MAINTENANCE WORKER LAB BLOOD ORDERABLES Final Res ult Performing Organization Address City/[facility]/ZIP Co de Phone Number [facility]) [address] [place] [address] * Thyroid Peroxidase Antibody (12/19/2024 10:51 AM EDT) Thyroid Peroxidase Antibody <5 <=8 IU/mL 12/19/2024 2:54 PM EDT [facility] Blood Venous blood specimen / Unknown Venipuncture / Unknown 12/19/2024 10:51 AM EDT 12/19/2024 10:53 AM EDT Marco Lugo [facility] BLOOD ORDERABLES Final Res ult Performing Organization Address [facility] Co de Phone Number [facility] [address] [place] [address] * (ABNORMAL) Cyclic Citrul Peptide Antibody IgG (12/19/2024 10:51 AM EDT) [facility] Cyclic Citrul Peptide Antibody IgG 22.7(H) <=5.0 U/mL 12/19/2024 3:[address] [facility] Blood Venous blood specimen / Unknown Venipuncture / Unknown 12/19/2024 10:51 AM EDT 12/19/2024 10:53 AM EDT Marco Begum [facility] BLOOD ORDERABLES Final Res ult Performing Organization Address [facility] de Phone Number [facility] [address] [place] [address] * Double-Stranded DNA (dsDNA) Antibody, IgG by IFA (12/19/2024 10:51 AM EDT) [facility] Double-Strande d DNA (dsDNA) Ab IgG IFA <1:10 <1:10 12/22/2024 3:34 PM EDT [facility] (JW) Blood Venous blood specimen / Unknown Venipuncture / Unknown 12/19/2024 10:51 AM EDT 12/19/2024 10:53 AM EDT Narrative [facility] (BEAKER) - 12/22/2024 3:34 PM EDT INTERPRETIVE INFORMATION: [...] recommendations for testing may be found at https://[employer]/content/ezbahzwlfa-vsnxpo-gmoqaksq. Performed By: [facility] [address] [place] [address] Estimator Binding: Martin Carbajal MD, PhD CLIA Number: [id number] Marco Lugo APRN LAB BLOOD ORDERABLES Final Res ult Performing Organization Address City/[facility]/ZIP Co de Phone Number [facility] (JW) [address] [place] [address] * Acute Hepatitis Panel (12/19/2024 10:51 AM EDT) [facility] Hepatitis B Surf Antigen Negative Negative 12/19/2024 2:54 PM EDT [facility] Hepatitis C Antibody Negative Negative 12/19/2024 2:54 PM EDT [facility] Hepatitis A Antibody IgM Negative Negative 12/19/2024 2:54 PM EDT [facility] Hepatitis B Core Antibody IgM Negative Negative 12/19/2024 2:54 PM EDT [facility] Blood Venous blood specimen / Unknown Venipuncture / Unknown 12/19/2024 10:51 AM EDT 12/19/2024 10:53 AM EDT Marco Lugo APRN LAB BLOOD ORDERABLES Final Res ult [facility] [address] [place] [address] * Quantiferon TB Gold Plus (12/19/2024 10:51 AM EDT) [facility] Quantiferon TB Gold Plus Result Negative Negative 12/20/2024 8:10 PM EDT [facility] TB Nill Value 0.0370 IU/mL 12/20/2024 8:10 PM EDT [facility] TB Antigen 1 -0.0103 IU/mL 12/20/2024 8:10 PM EDT [facility] TB Antigen 2 -0.0096 IU/mL 12/20/2024 8:10 PM EDT [facility] TB Mitogen 5.223 IU/mL 12/20/2024 8:10 PM EDT [facility] Blood Venous blood specimen / Unknown Venipuncture / Unknown 12/19/2024 10:51 AM EDT 12/19/2024 10:53 AM EDT Narrative [facility] - 12/20/2024 8:10 PM EDT Responses to the Mitogen positive control and occasionally to TB antigen can be above the assay range. For calculation purposes: IFN-gamma values > 10 IU/mL are handled as 10 IU/mL. Sonicskassie MUNICIPAL MAINTENANCE WORKER LAB BLOOD ORDERABLES Final Res ult Performing Organization Address City/[facility]/ZIP Co de Phone Number [facility] [address] [place] [address] * (ABNORMAL) Sedimentation Rate, Automated (12/19/2024 10:51 AM EDT) Only the most recent of2 resultswithin the time period is included. Sedimentation Rate 34(H) <20 mm/hr 2024 11:45 AM EDT [facility] Blood Venous blood specimen / Unknown Venipuncture / Unknown 12/19/2024 10:51 AM EDT 12/19/2024 10:53 AM EDT [facility] LAB BLOOD ORDERABLES Final Res ult [facility] [address] [place] [address] * (ABNORMAL) Rheumatoid Factor, Plasma (12/19/2024 10:51 AM EDT) Rheumatoid Factor, Plasma 392(H) <14 IU/mL 12/19/2024 12:23 PM EDT [facility] Blood Venous blood specimen / Unknown Venipuncture / Unknown 12/19/2024 10:51 AM EDT 12/19/2024 10:53 AM EDT Marco Lugo APRN LAB BLOOD ORDERABLES Final Res ult Performing Organization Address [facility]/ZIP Co de Phone Number [facility] [address] [place] [address] * C3 Complement (12/19/2024 10:51 AM EDT) C3 Complement 131 84 - 166 mg/dL 12/19/2024 1:05 PM EDT [facility] Blood Venous blood specimen / Unknown Venipuncture / Unknown 12/19/2024 10:51 AM EDT 12/19/2024 10:53 AM EDT Marco Sonikassie BRADLEY LAB BLOOD ORDERABLES Final Res ult Performing Organization Address [facility] [place] [address] * C4 Complement (12/19/2024 10:51 AM EDT) C4 Complement 15 13 - 36 mg/dL 12/19/2024 1:[address] [facility] Blood Venous blood specimen / Unknown Venipuncture / Unknown 12/19/2024 10:51 AM EDT 12/19/2024 10:53 AM EDT Marco Lugo APRN LAB BLOOD ORDERABLES Final Res ult Performing Organization Address City/[facility] [place] [address] * (ABNORMAL) C-Reactive Protein, Plasma (12/19/2024 10:51 AM EDT) CRP, Plasma 19.1(H) <=8.0 mg/L 12/19/2024 12:09 PM EDT [facility] Blood Venous blood specimen / Unknown Venipuncture / Unknown 12/19/2024 10:51 AM EDT 12/19/2024 10:53 AM EDT Narrative [facility] - 12/19/2024 12:09 PM EDT This CRP test is appropriate for assessment of infection, systemic inflammation and/or tissue injury. To assess cardiovascular disease risk order high sensitivity CRP (CRPH). Marco Lugo APRN LAB BLOOD ORDERABLES Final Res ult [facility] [address] [place] [address] * Antinuclear Antibody (LISA), HEp-2, IgG (12/19/2024 10:51 AM EDT) LISA INTERPRETIVE COMMENT See Note 12/21/2024 6:04 AM EDT [facility] ([facility]) Anti Nuc Ab Screen <1:80 <1:80 12/21/2024 6:04 AM EDT [facility] ([facility]) Blood Venous blood specimen / Unknown Venipuncture / Unknown 12/19/2024 10:51 AM EDT 12/19/2024 10:53 AM EDT Narrative [facility] ([facility]) - 12/21/2024 6:04 AM EDT Clinical Interpretation: [...] not necessarily rule out SARD. Performed By: [facility] [address] [place] [address] Estimator Binding: Martin Carbajal MD, PhD CLIA Number: [id number] Marco Lugo APRN LAB BLOOD ORDERABLES Final Res ult Performing Organization Address [facility] Co de Phone Number [facility] (JW) [address] [place] [address] * GFR (11/28/2024 3:22 PM EDT) External Estimated GFR 65 >=60 11/28/2024 4:34 PM EDT [facility] Comment: NOTE New calculation for GFR (CKD-EPI 2020) is formulated without race adjustment factors at the recommendation of the National Kidney Foundation and [place] [employer]ph[employer]. This calculation has not been validated in women. For pediatric patients refer to https://www.kidney.org/professionals/KDOQI/gfr_calculatorPed 11/28/2024 3:22 PM EDT 11/28/2024 4:01 PM EDT Jason Barnett MD LAB BLOOD ORDERABLES Final Resul t Performing Organization Address [facility] Co de Phone Number [facility] [place] [address], [place] [phone] * (ABNORMAL) Creatinine, Plasma (11/28/2024 3:22 PM EDT) External Creatinine Blood 1.30(H) 0.70 - 1.20 mg/dL 11/28/2024 4:34 PM EDT [facility] 11/28/2024 3:22 PM EDT 11/28/2024 4:01 PM EDT Jason Barnett MD LAB BLOOD ORDERABLES Final Resul t Performing Organization Address [facility] Co de Phone Number [facility] [address] [place] [address], [place] [phone] * (ABNORMAL) CBC and Differential (11/28/2024 3:22 PM EDT) External WBC 11.6(H) 3.8 - 10.8 10*3/uL 11/28/2024 4:19 PM EDT [facility] External Red Blood Cell (RBC) 5.79 4.20 - 5.80 10*6/uL 11/28/2024 4:19 PM EDT [facility] External Hemoglobin 17.1 14.0 - 18.0 g/dL 11/28/2024 4:19 PM EDT [facility] External Hematocrit 51.9 40.0 - 52.0 % 11/28/2024 4:19 PM EDT [facility] External MCV 90 80 - 100 fL 11/28/2024 4:19 PM EDT [facility] External MCH 30 26 - 35 pg 11/28/2024 4:19 PM EDT [facility] External MCHC 33 32 - 36 g/dL 11/28/2024 4:19 PM EDT [facility] External RDW 16.8(H) 11.0 - 15.0 % 11/28/2024 4:19 PM EDT [facility] External Mean Platelet Volume 8.3 6.2 - 10.5 fL 11/28/2024 4:19 PM EDT [facility] External Platelet Count (Plt) 226 150 - 400 10*3/uL 11/28/2024 4:19 PM EDT [facility] External Neutrophil# 9.6(H) 1.6 - 8.4 10*3/uL 11/28/2024 4:19 PM EDT [facility] External Lymphocyte# 0.9 0.4 - 5.1 10*3/uL 11/28/2024 4:19 PM EDT [facility] External Absolute Monocyte (Abs [place]) 1.0 0.0 - 1.2 10*3/uL 11/28/2024 4:19 PM EDT [facility] External Eosinophils# 0.0 0.0 - 0.8 10*3/uL 11/28/2024 4:19 PM EDT [facility] External Baso# 0.1 0.0 - 0.3 10*3/uL 11/28/2024 4:19 PM EDT [facility] External Neutrophils % 82.4(H) 42.0 - 78.0 % 11/28/2024 4:19 PM EDT [facility] External Lymphocyte % 7.7(L) 11.0 - 47.0 % 11/28/2024 4:19 PM EDT [facility] External Monocyte % 8.9 0.0 - 11.0 % 11/28/2024 4:19 PM EDT [facility] External Eosinophil% 0.1 0.0 - 7.0 % 11/28/2024 4:19 PM EDT [facility] External Basophil % 0.9 0.0 - 3.0 % 11/28/2024 4:19 PM EDT [facility] External Nucleated RBC%-Auto 0.0 0.0 - 0.9 % 11/28/2024 4:19 PM EDT [facility] External Nucleated RBC Absolute 0.00 Not Estab. 10*3/uL 11/28/2024 4:19 PM EDT [facility] 11/28/2024 3:22 PM EDT 11/28/2024 4:08 PM EDT us Jason Barnett MD LAB BLOOD ORDERABLES Final Resul t [facility] [address] [place] [address], * Hepatic Function Panel (11/28/2024 3:22 PM EDT) External AST (SGOT) 15 0 - 40 U/L 11/28/2024 4:34 PM EDT [facility] External ALT (SGPT) 17 0 - 41 U/L 11/28/2024 4:34 PM EDT [facility] External Alkaline Phosphatase 93 40 - 129 U/L 11/28/2024 4:34 PM EDT [facility] External Total Protein 7.3 6.4 - 8.3 g/dL 11/28/2024 4:34 PM EDT [facility] External Albumin 3.7 3.5 - 5.2 g/dL 11/28/2024 4:34 PM EDT [facility] External Bilirubin Total 0.5 0.1 - 1.2 mg/dL 11/28/2024 4:34 PM EDT [facility] External Bilirubin Direct 0.2 0.0 - 0.3 mg/dL 11/28/2024 4:34 PM EDT [facility] External Unconjugated Bilirubin 0.3 0.0 - 1.0 mg/dL (calc) 11/28/2024 4:34 PM EDT [facility] 11/28/2024 3:22 PM EDT 11/28/2024 4:01 PM EDT us Jason Barnett MD LAB BLOOD ORDERABLES Final Resul t [facility] [address] [place] [address], [place] [phone] from Last 3 Months Insurance Care Teams Spare Hand Carding Relationship Specialty Start Date End Date Sushil Mobley MD [address] [place] [address] PCP - General 12/19/24
--- OUTSIDE RECORDS SUMMARY | 2025-02-06 10:49 | XMS_ITS | Encounter Summary ---
Author Organization Healthcare Address [address] [place] [address] Care Team Providers Care Kettle Fry Cook Operator Name Role Phone Sushil Mobley MD Primary Care Provider [phone] Encounter Details Date Type Department Care Team (Late st Contact Info) Description 12/19/2024 Results [facility]Up [facility] [address] [place] [address] Marco Lugo, KIRK [address] [place] [address] Social History Tobacco Use Types Packs/Day Years [...] things Not at all 12/19/2024 9:39 AM CELINET Kelley Diaz Feeling down, depressed, or hopeless Not at all 12/19/2024 9:39 AM EDT Kelley Diaz Patient Health Questionnaire -2 Score 0 12/19/2024 9:39 AM EDT Kelley Diaz documented as of this encounter Plan of Treatment Upcoming Encounters Date Type Department Care Team (Late st Contact Info) Description 04/25/2025 10:30 AM EST Office [facility] [address] [place] [address] Marco Lugo, KIRK [address] [place] [address] documented as of this encounter Visit Diagnoses Not on filedocumented in this encounter Additional Health Concerns Assessment Noted Time A fall risk assessment has been complete d for the patient 12/19/2024 9:39 AM EDT A Body Mass Index follow-up plan has been documented for the patient 12/19/2024 10:35 AM EDT documented as of this encounter Care Teams Kettle Fry Cook Operator Relationship Specialty Start Date End Date Sushil Mobley MD [address] [place] [address] PCP - General 12/19/24 documented as of this encounter
--- OUTSIDE RECORDS SUMMARY | 2025-02-06 10:49 | XMS_ITS | Encounter Summary ---
Author Organization Healthcare Address [address] [id number] Care Team Providers Care Inspector Barrel Name Role Phone Sushil Mobley MD Primary Care Provider [phone] Reason for Visit * Reason Onset Date Comments Results 12/26/2024 Encounter Details Date Type Department Care Team (Late st Contact Info) Description 12/26/2024 Telephone [facility] [address] [place] [address] [place] [address] Results Social History Tobacco Use Types Packs/Day Years [...] on file documented as of this encounter Miscellaneous Notes * Telephone Encounter - Marco Lugo APRN - 12/28/2024 1:12 PM EDT Called and d/with patient * Telephone Encounter - Renetta Knowles - 12/27/2024 4:05 PM EDT Patient calling in States they would like to know the results of labs CB: [phone] * Telephone Encounter - Mel Siddiqi - 12/26/2024 4:31 PM EDT Patient called to follow up on discussing lab results CB: [phone] * Telephone Encounter - Mel Siddiqi - 12/26/2024 2:08 PM EDT Patient called returning a phone call, possibly regarding results CB: [phone] documented in this encounter Plan of Treatment Upcoming Encounters Date Type Department Care Team (Late st Contact Info) Description 04/25/2025 10:30 AM EST Office [facility] [address] [place] [address] Marco Lugo, DIRECTOR OF STRATEGIC PROGRAMS [address] [place] [address] documented as of this encounter Visit Diagnoses Not on filedocumented in this encounter Additional Health Concerns Assessment Noted Time A fall risk assessment has been complete d for the patient 12/19/2024 9:39 AM EDT A Body Mass Index follow-up plan has been documented for the patient 12/19/2024 10:35 AM EDT documented as of this encounter Care Teams Inspector Barrel Relationship Specialty Start Date End Date Sushil Mobley MD [facility] [place] [address] PCP - General 12/19/24 documented as of this encounter
--- OUTSIDE RECORDS SUMMARY | 2025-02-06 10:49 | XMS_ITS | Encounter Summary ---
Author Organization Healthcare Address [address] [id number] Care Team Providers Care Professional System Administrator Name Role Phone Sushil Mobley MD Primary Care Provider [phone] Reason for Visit * Reason Onset Date Comments Michelle New Start 12/19/2024 Encounter Details Date Type Department Care Team (Late st Contact Info) Description 12/19/2024 Telephone [place] [facility] [address] [place] [address] Caleb Linder, PharmD [place] [phone] Michelle New Start Social History Tobacco Use Types Packs/Day Years [...] Assessment Author 12 12/19/2024 9:41 AM EDT Diaz, O liva E * Question Answer Date of Assessment Author [...] [place] documented as of this encounter Miscellaneous Notes * Progress Notes - Steve Wise PharmD - 12/20/2024 9:52 AM EDT [facility] Specialty Medication Initial Care Plan Bird Vaughan is a 54 y.o. male assessed via phone for initiation of drug therapy Enbrel for diagnosis Rheumatoid arthritis. Plan for administration of therapy in patient's home Therapeutic Category: Rheumatoid Arthritis Chart Review Allergies: Patient has no known allergies. Current Outpatient Medications Medication Instructions ALPRAZolam (XANAX) 2 mg diclofenac-miSOPROStol (Arthrotec 50) 50-0.2 MG EC tablet 2 times daily DULoxetine (Cymbalta) [address] capsule Enbrel SureClick 50 mg, Subcutaneous, Weekly hydroxychloroquine (PLAQUENIL) 200 mg, 2 times daily leflunomide (ARAVA) 20 mg, ZZ Daily RT predniSONE (DELTASONE) 20 mg, Oral, As Directed, Taper by 2.5mg (0.5 tabs) every day every 2 weeks until done starting 01/02 sulfaSALAzine (Azulfidine) 500 MG tablet Testosterone (Androgel) 1.62 % transdermal gel pump Problem List[1] Immunization History Administered Date(s) Administered Pfizer-BioNTech COVID-19 Vaccine (Purple Cap) 12+ 08/04/2020, 09/06/2020, 04/14/2021 TD (adult), 2 Lf tetanus toxoid, preservative free, adsorbed 12/04/1998 Selected lab results: Lab Results Component Value Date WBC 11.6 (H) 11/28/2024 HGB 17.1 11/28/2024 HCT 51.9 11/28/2024 PLT 226 11/28/2024 , Lab Results Component Value Date CREATININE 1.30 (H) 11/28/2024 , Lab Results Component Value Date ALBUMIN 3.7 11/28/2024 PROT 7.3 11/28/2024 ALKPHOS 93 11/28/2024 ALT 17 11/28/2024 AST 15 11/28/2024 BILITOT 0.5 11/28/2024 , No results found for: QUANTIFERON , Lab Results Component Value Date HEPBCAB Negative 12/19/2024 HEPBSAG Negative 12/19/2024 , Lab Results Component Value Date ASHVIN Negative 12/19/2024 , and Lab Results Component Value Date CRP 19.1 (H) 12/19/2024 SEDRATE 34 (H) 12/19/2024 Patient profile review for changes in Medications, Allergies, Conditions, Vaccinations? Reviewed - no changes Medication reconciliation - review all current medications including prescriptions, PTC, herbals, and supplements with the patient? Completed takes b12 otc Is this an infusion therapy? No Patient is treatment: Experienced: Previous therapies include Hydroxychloroquine, leflunomide, sulfasalazine, corticosteroids Reasons for previous treatment failure Ineffective relief, still taking Is patient of child bearing potential? No Does patient have an active infection? None Drug Review Patient drug therapy to be initiated: Enbrel Planned date of initiation: 12/21/24 Is the patient taking concomitant therapy for this disease? Yes: Corticosteroids (currently tapering off) Hydroxychloroquine, Leflunomide, Sulfasalazine Drug assessment: Is this the appropriate drug/dose/route/frequency/duration? Yes Drug utilization review Drug-disease precautions: No clinically significant issues identified Drug-drug interactions: No clinically significant issues identified Drug-patient precautions: No clinically significant issues identified Adherence summary: What percent of doses did the patient miss in the past 4 weeks? N/A Therapeutic benefit summary: N/A Patient's therapy is appropriate to: Initiate Education and Counseling Patient educated & counseled on disease education including an overview of the condition, its progression and potential complications, associated comorbidities, prevention strategies, goals of therapy, and treatment and therapy management. Patient educated & counseled on medication(s) including REMS/Black box warnings, proper use, timely administration or intake, missed dose instructions, potential side effects, contraindications, safety and handling precautions, storage and disposal guidelines, and general warnings and precautions. Patient educated & counseled on adherence including the importance of adherence and adherence management strategies. Monitoring Questions Patient reported outcomes: Do you feel comfortable administering your medication and following the treatment plan as prescribed? Yes If therapy is injectable, does patient require further injection training? No How would you rate your pain on average? (0 = no pain, 10 = worst pain imaginable) 7 Up to 10 with flares On a scale from 1 to 10, with 10 being very well and 1 being very poor, how are you feeling overall? 5 How satisfied are you with the ongoing education and counseling you receive regarding your health condition, on a scale of 1 to 5, with 5 being completely satisfied and 1 being dissatisfied? Patient management score: 5-Completely Satisfied Patient Management Assessment scores must be reviewed by a clinician with each Care Plan. Scores of2 or lower must be documented in a Clinical Intervention Care Plan. Disease symptoms assessment Has the patient been seen for planned or unplanned healthcare visit in the last 4 weeks? No Has the patient missed any days from work, school, or planned activities in the past 4 weeks due totheir disease? Deferred Care Plan Questions Goal(s) of therapy: Improving or maintaining quality of life, Control signs and symptoms of disease, Slow or prevent progression of disease, and Reduce disability and/or long-term complications Strategies to achieve goal(s) of therapy: Adhere to plan of care (drug therapy), Comply to lab tests/imaging, Comply to follow up appointments, and Share concerns about drug therapy or side effects with care team Identified barrier(s) to care/intervention problem type: No problems identified (No barriers to care or risks associated with medication storage and handling identified) Outcome of Clinical Intervention: Intervention not needed Current adverse events/side effects patient is experiencing: Unable to assess Counseled patient on selected side effects: Patient verbalized understanding Summary/Plan Prior authorization for Enbrel has been approved and education provided. The Initial Shipment has been set up and anticipated therapy start date is: 12/21/24 [facility] Please see pharmacy encounter note for details. Pharmacist reviewed the plan of care in regards to specialty medication Enbrel for diagnosis of Rheumatoid Arthritis. Patient starting therapy with anticipated therapy start date is: 12/21/24. Anticipated filling pharmacy is: [facility] and location of administration will be patient's home Plan/Patient specific needs: Start Enbrel. Patient/caregiver participated in the development and agreed to the plan of care. Patient/caregiverhad no additional questions or concerns for the care team. Patient/caregiver voiced understanding of the goals with the regimen and agreed to attend follow up appointments to assess progress toward their goal. The plan of care will be reviewed at least annually, or more often if there is a need. The patient agrees with all elements of the care plan: Yes Steve Wise PharmD 12/20/2024 9:52 AM [1] Patient Active Problem List Diagnosis Polycythemia Neutrophilia * Telephone Encounter - Caleb Linder PharmD - 12/19/2024 10:51 AM EDT Per discussion with provider, Enbrel has been ordered at the request of the provider for 28 day supply with 4 refills to [facility] pharmacy. documented in this encounter Plan of Treatment Upcoming Encounters Date Type Department Care Team (Late st Contact Info) Description 04/25/2025 10:30 AM EST Office Visit [facility]ties [address] [place] [address] Marco Lugo, KIRK [address] [place] [address] documented as of this encounter Visit Diagnoses Diagnosis Seropositive rheumatoid arthritis of multiple sites (CMS/HCC)- Primary documented in this encounter Additional Health Concerns Assessment Noted Time A fall risk assessment has been complete d for the patient 12/19/2024 9:39 AM EDT A Body Mass Index follow-up plan has been documented for the patient 12/19/2024 10:35 AM EDT documented as of this encounter Care Teams Professional System Administrator Relationship Specialty Start Date End Date Sushil Mobley MD [address] [place] [address] PCP - General 12/19/24 documented as of this encounter
--- OUTSIDE RECORDS SUMMARY | 2025-02-06 10:49 | XMS_ITS | Encounter Summary ---
Author Organization Healthcare Address [address] [place] [address] Care Team Providers Care Ship Manager Name Role Phone Sushil Mobley MD Primary Care Provider [phone] Encounter Details Date Type Department Care Team (Latest Contact Info) Description 12/19/2024 Travel Social History Tobacco Use Types Packs/Day Years [...] of Assessment Author 12 12/19/2024 9:41 AM CELINET Fatemeh Diaz * Question Answer Date of Assessment Author Q1: How often do you have a drink containing alcohol? 4 or more times a week 12/19/2024 9:41 AM CELINET Kelley Diaz Q2: How many drinks containing alcohol do you have on a typical day when you are drinking? 10 or more 12/19/2024 9:41 AM CELINET Kelley Diaz Q3: How often do you [...] Description 04/25/2025 10:30 AM EST Office Visit [facility] [address] [place] [address] Marco Lugo, KIRK [address] [place] [address] documented as of this encounter Visit Diagnoses Not on filedocumented in this encounter Additional Health Concerns Assessment Noted Time A fall risk assessment has been complete d for the patient 12/19/2024 9:39 AM EDT A Body Mass Index follow-up plan has been documented for the patient 12/19/2024 10:35 AM EDT documented as of this encounter Care Teams Ship Manager Relationship Specialty Start Date End Date Sushil Mobley MD [address] [place] [address] PCP - General 12/19/24 documented as of this encounter
--- OUTSIDE RECORDS SUMMARY | 2025-02-06 10:49 | XMS_ITS | Clinical Summary ---
Author Organization [facility] Address [address] [place] [address] Phone Care Team Providers Care Account Receivable Clerk Name Role Phone Andres Warren Primary Care Provider [phone] Allergies No known active allergies Medications diclofenac-miso prostoL (ARTHROTEC 50) 50-200 mg-mcg Oral Tab,IR & Delay Rel,Multiphasic Take by mouth 2 times daily. Active predniSONE (DELTASONE) 10 mg Oral TabletIndicatio ns:Acute pain of right shoulder 1 QID X 2 DAYS, 1TID X 2 DAYS, 1 BID X 2 DAYS , 1 QD X 4DAYS UNTIL COMPLETED 22 Tablet 3 Active Additional Information Patient not taking.Reason: Therapy Completed, Reported on 04/15/2024 varenicline (CHANTIX) 0.5 mg Oral Tablet Take 0.5 mg by mouth 2 times daily. Active ALPRAZolam (XANAX) 2 mg Oral Tablet Take 2 mg by mouth nightly as needed for Anxiety (panic attacks). As needed for panic attacks Active acetaminophen (TYLENOL) 500 mg Oral Tablet Take 1,000 mg by mouth every 6 hours as needed for Pain. Active oxyCODONE 10 mg Oral Tablet Take 10 mg by mouth 3 times daily. Active leflunomide (ARAVA) 20 mg Oral Tablet Take 20 mg by mouth daily. Active hydroxychloroqu ine (PLAQUENIL) 200 mg Oral Tablet Take 200 mg by mouth 2 times daily. Active promethazine (PHENERGAN) 25 mg Oral Tablet Take 1 Tablet by mouth every 6 hours as needed for Nausea for up to 20 doses. 20 Tablet 08/25/2023 11:35 AM EDT Active Additional Information Patient not taking.Reason: Therapy Completed, Reported on 04/15/2024 docusate sodium (COLACE) 100 mg Oral Capsule Take one capsule three times a day while on pain meds 90 Capsule Active Additional Information Patient not taking.Reported on 04/15/2024 oxyCODONE (ROXICODONE) 5 mg Oral Tablet Take 1 Tablet by mouth every 6 hours as needed for Acute Pain > 3 Days Medically Necessary (R52) (Pt needs to address with pain doc. If he agrees, then fill this script ONCE). 15 Tablet Active Additional Information Patient not taking.Reason: Therapy Completed, Reported on 04/15/2024 DULoxetine (CYMBALTA) 60 mg Oral Capsule, Delayed Release(E.C.) Take 60 mg by mouth daily. 4 Active Active Problems Problem Noted Date Diagnosed Date Superior glenoid labrum lesion of right shoulder 08/31/2023 Rotator cuff tear arthropathy, left 08/31/2023 Right rotator cuff tendinitis 08/06/2023 Superior glenoid labrum lesion of right shoulder 04/20/2023 Superior glenoid labrum lesion of right shoulder 03/24/2023 Surgical History Surgery Date Site/Laterality Comments TONSILLECTOMY age 4 SHOULDER ARTHROSCOPY 08/25/2023 Shoulder/Left LEFT SHOULDER ARTHROSCOPY ROTATOR CUFF REPAIR, SUBACROMIAL DECOMPRESSION, DEBRIDEMENT; Surgeon: Tucker Cortez MD; Location: [facility]; Service: Orthopedics Medical devices from this surgery are in the Medical Devices section. Medical History Medical History Date Comments Arthritis Rheumatoid arthritis (HCC) COPD (chronic obstructive pulmonary disease) (HC C) Family History Medical History Relation Name Comments Other Father Cancer Maternal Grandfather Heart Disease Maternal Grandmother Cancer Mother Anesth Problems Neg Hx Relation Name Status Comments Father Maternal Grandfather Maternal Grandmother Mother Social History Tobacco Use Types Packs/Day Years Used Date Smoking Tobacco: Every Day Cigarettes Smokeless Tobacco: Never Tobacco Cessation:Ready to Q uit: Not Asked; Counseling Given: Not Answered Alcohol Use Standard Drinks/Week Comments No 0 (1 standard drink = 0.6 oz pur e alcohol) Sex and Gender Information Value Date Recorded Sex Assigned at Not on file Legal Sex Male 11:39 AM EDT Gender Identity Not on file Sexual Orientation Not on file Last Filed Vital Signs Vital Sign Reading Time Taken Comments Blood Pressure 162/93 08/25/2023 10:30 AM EDT Pulse 103 08/25/2023 10:30 AM EDT Temperature 36.7 C (98 F) 08/25/2023 10:40 AM EDT Respiratory Rate 24 08/25/2023 10:30 AM EDT Oxygen Saturation 94% 08/25/2023 10:30 AM EDT Inhaled Oxygen Concentration - - Weight 122.5 kg (270 lb) 01/06/2024 4:13 PM EDT Height 185.4 cm (6' 1 ) 01/06/2024 4:13 PM EDT Body Mass Index 35.62 01/06/2024 4:13 PM EDT Plan of Treatment Health Maintenance Due Date Last Done Comments Annual Wellness Exam 1972 Hepatitis B Vaccine (1 of 3 - 19+ 3-dose series) 1988 Pneumococcal Vaccine 50+ (1 of 2 - PCV) 1988 Zoster (1 of 2) 1988 DTaP/TDaP/Td (1 - Tdap) 12/05/1998 12/04/1998 Cologuard 2014 Colon Cancer Screening 2014 Colonoscopy 2014 FIT 2014 Sigmoidoscopy 2014 Virtual Colonography 2014 COVID-19 Vaccine (5 - Pfizer risk season) 2025 01/13/2024, 04/14/2021, 09/06/2020, Additional history exists Influenza Vaccine (#1) 2025 Meningococcal B Vaccine Aged Out No l onger eligible based on patient's age to complete this topic Medical Devices Implanted Type Area Covered Buckle Assembler Device Identifier Shelf Expiration Date Model / Serial / Lot Healix Advance 5.5mm W/ Orthocord - [id number] Implanted:Qty: 1 on 08/25/2023 by [facility]ez MD at [facility] Left: Shoulder MITEK 10/08/2024 [id number] / / [id number] Insurance ALLIED [facility] GENERIC WORKERS' COMP GENERIC WORKERS' COMP ONE CALL WC ACCIDENT [employer] [place] [place] [address] ACCIDENT FUND INSURANCE CO Care Teams Account Receivable Clerk Relationship Specialty Start Date End Date Andres Warren [address] [place] [address] PCP - General Family Medicine 10/23/16
--- OUTSIDE RECORDS SUMMARY | 2025-02-06 10:49 | XMS_ITS | Encounter Summary ---
Author Organization Healthcare Address [address] [place] [address] Care Team Providers Care Clinic Business Manager Name Role Phone Sushil Mobley MD Primary Care Provider [phone] Encounter Details Date Type Department Care Team (Late st Contact Info) Description 01/13/2025 Orders Only [facility] [address] [place] [address] Reno Jeff MD [address] [address] Polycythemia; Neutrophilia Social History Tobacco Use Types Packs/Day Years [...] on file documented as of this encounter Plan of Treatment Upcoming Encounters Date Type Department Care Team (Late st Contact Info) Description 04/25/2025 10:30 AM EST Office Visit [place] [facility] [address] [place] [address] Marco Lugo, SECOND BAKER [address] [place] [address] documented as of this encounter Visit Diagnoses Diagnosis Polycythemia Polycythemia, secondary Neutrophilia Other specified disease of white blood cells documented in this encounter Additional Health Concerns Assessment Noted Time A fall risk assessment has been complete d for the patient 12/19/2024 9:39 AM EDT A Body Mass Index follow-up plan has been documented for the patient 12/19/2024 10:35 AM EDT documented as of this encounter Care Teams Clinic Business Manager Relationship Specialty Start Date End Date Sushil Mobley MD [facility] [place] [address] PCP - General 12/19/24 documented as of this encounter
--- OUTSIDE RECORDS SUMMARY | 2025-02-06 10:49 | XMS_ITS | Encounter Summary ---
Author Organization Healthcare Address [address] [id number] Care Team Providers Care Service Associate Name Role Phone Sushil Mobley MD Primary Care Provider [phone] Encounter Details Date Type Department Care Team (Latest Contact Info) Description 01/17/2025 Travel Social History Tobacco Use Types Packs/Day [...] Description 04/25/2025 10:30 AM EST Office Visit [facility] [address] [place] [address] Marco Lugo, KIR[facility] [address] [place] [address] documented as of this encounter Visit Diagnoses Not on filedocumented in this encounter Additional Health Concerns Assessment Noted Time A fall risk assessment has been complete d for the patient 12/19/2024 9:39 AM EDT A Body Mass Index follow-up plan has been documented for the patient 12/19/2024 10:35 AM EDT documented as of this encounter Care Teams Service Associate Relationship Specialty Start Date End Date Sushil Mobley MD [address] [place] [address] PCP - General 12/19/24 documented as of this encounter
--- OUTSIDE RECORDS SUMMARY | 2025-02-06 10:49 | XMS_ITS | Encounter Summary ---
Author Organization Healthcare Address [address] [place] [address] Care Team Providers Care Front End Web Developer Name Role Phone Sushil Mobley MD Primary Care Provider [phone] Encounter Details Date Type Department Care Team (Late st Contact Info) Description 01/24/2025 Telephone [place] [facility] [address] [place] [address] Marco Lugo, COUNTY ASSESSOR [address] [place] [address] Social History Tobacco Use Types [...] encounter Miscellaneous Notes * Telephone Encounter - Alelgra Horowitz - 01/24/2025 2:17 PM EDT Clinical Concern/Question Reason for Call: Olivia with [facility] is asking for clearance for the pt to have a FCE.Please call. Best contact number: Other: [phone] Optimal time of day to reach caller: ANYTIME Additional comments/information from caller: None Note: Please do not reply to this message. Follow-up communication and further actions as a result of this message need to be communicated with the patient directly, if the patient is not active onMyChart. If the patient is active on MyChart, they will receive notification of the communication/outcome via [employer]. documented in this encounter Plan of Treatment Upcoming Encounters Date Type Department Care Team (Late st Contact Info) Description 04/25/2025 10:30 AM EST Office Visit [facility] [address] [place] [address] Marco Lugo, KIRK [address] [place] [address] documented as of this encounter Visit Diagnoses Not on filedocumented in this encounter Additional Health Concerns Assessment Noted Time A fall risk assessment has been complete d for the patient 12/19/2024 9:39 AM EDT A Body Mass Index follow-up plan has been documented for the patient 12/19/2024 10:35 AM EDT documented as of this encounter Care Teams Front End Web Developer Relationship Specialty Start Date End Date Sushil Mobley MD [address] [place] [id number] PCP - General 12/19/24 documented as of this encounter
[2025-02-06 12:07] LABS: Testosterone,Total >1500 ng/dL (264-916)
== END 2025-02-03 23:59 ==
LOC: LAB.DROPOF 02-06 10:41
PROVIDERS: PCP Family Medicine; Visit Provider Family Medicine
DX: I10 Essential (primary) hypertension (principal); E66.9 Obesity, unspecified; R76.8 Other specified abnormal immunological findings in serum; M06.9 Rheumatoid arthritis, unspecified; R79.89 Other specified abnormal findings of blood chemistry; Z12.5 Encounter for screening for malignant neoplasm of prostate
CPT/HCPCS: 80053; 80061; 82607; 84403; 85025; G0103